=== PATIENT | female | born 1965 | race Caucasian/White ===

== ENCOUNTER 2023-07-23 17:32 | Emergency (ER) | payer MEDICARE, MEDICAID, SELFPAY ==
[2023-07-23 17:42] VITALS: BP 148/105; PULSE 116; RESP 22; TEMP 36.6; O2SAT 97
--- NOTE | 2023-07-23 17:52 | W.ED.EXTPRO ---
HPI - Extremity Problem General: Chief complaint: Extremity Injury, Lower Stated complaint: hips, bilateral leg pain Time Seen by Provider: 07/23/23 17:41 History of Present Illness: 57-year-old female presents emergency department with complaints of bilateral hip and upper leg pain. She states this has been worse over the past 3 weeks. She states she has a longstanding history of sciatica and has not seen her primary care provider in over 3 years. She states she also has a history of renal cell carcinoma as well as malignant melanoma with excision to her lower extremities. She states she also has a history of hypertension but has not been taking any antihypertensive medications because she became upset with her primary care provider years ago and has not followed up to the reevaluated. She states her pain is a 6 out of 10 aching pain and that she is confident that it is her sciatica that is flaring up. She denies urinary retention or incontinence. She states she does have a longstanding history of neuropathy and that is no worse than it has been in the past. She denies recent injury or trauma. Review of Systems General: Reports: 10 or more systems reviewed and unremarkable except in HPI and below : Reports: dysuria, urinary frequency and urinary urgency Musc: Reports: back pain, extremity pain and joint pain Neuro: Denies: frequent falls Physical Exam Const: COMMON NORMALS: no acute distress, patient oriented x3 and alert HENMT: COMMON NORMALS: normocephalic, atraumatic and moist oral mucous membranes HEAD & SCALP: normocephalic and atraumatic Eye: GENERAL EYE: appearance normal, both eyes and all related structures and normal light reflex DIRECT OPHTHALMOSCOPY: Yes normal light reflex Neck/C-Spine: COMMON NORMALS: full ROM, supple and no meningeal signs Resp: COMMON NORMALS: normal respiratory effort, No retractions and clear to auscultation bilaterally AUSCULTATION: clear to auscultation bilaterally Cardio: COMMON NORMALS: regular rhythm, S1 normal heart sound present, S2 normal heart sound present and Peripheral pulses 2+ throughout RATE: tachycardic (120 bpm) RHYTHM: regular rhythm HEART SOUNDS: S1 normal heart sound present and S2 normal heart sound present PERIPHERAL PULSES: Peripheral pulses 2+ throughout GI: COMMON NORMALS: Normal to inspection, nondistended, normoactive bowel sounds present, Soft to palpation and non-tender PALPATION: Yes Soft to palpation Back/Pelvis: SACROILIAC JOINTS: Yes SI joint(s) abnormal SI joint details: tender to palpation and pain elicited by compression of iliac crest maneuver Extremity: COMMON NORMALS: normal to inspection, full ROM, capillary refill normal and no pedal edema Neuro: COMMON NORMALS: patient oriented x3, moves all extremities, no focal motor deficits and no sensory deficits noted SENSORIUM/ORIENTATION: Yes alert MENINGEAL SIGNS: Yes no meningeal signs Psych: COMMON NORMALS: mental status grossly normal, Normal thought process present and cooperative THOUGHT PROCESS: Normal thought process present Skin: COMMON NORMALS: no rashes or lesions noted GENERAL SKIN EXAM: no rashes or lesions noted Course ED course: I did have an extensive discussion with the patient regarding her laboratory evaluation to include an elevated white blood cell count as well as findings consistent in her urinalysis with a urinary tract infection. I also had extensive discussion with the patient regarding her positive findings for amphetamines and again provided her the risk and complications of continued amphetamine and substance abuse. On reevaluation after providing her pain medications and corticosteroids she stated her sciatic nerve pain had significantly improved. We also provide her IV antibiotics while in the emergency department and provided her written prescriptions for both pain control and antibiotics at the time of discharge. I did encourage her to obtain a primary care physician given that she has had history of malignant melanoma as well as renal cell carcinoma with a nephrectomy. Patient verbalized understanding all information is provided and stated she would seek a primary care provider I did provide her recommendations for area primary care providers and she stated she would look into it. Patient was discharged home in stable condition and in no acute distress with a family member who was providing her transportation. Vital Signs: Vital signs: Vital Signs Temperature 97.8 F 07/23/23 17:42 Pulse Rate 81 07/23/23 22:18 Respiratory Rate 22 H 07/23/23 17:42 Blood Pressure 148/105 07/23/23 17:42 Pulse Oximetry 91 07/23/23 22:18 Oxygen Delivery Me thod Room Air 07/23/23 21:42 MDM - Extremity (Nontraumatic) Medical Decision Making Physical exam completed and documented, laboratory evaluation to include a CBC and CMP as well as urinalysis given the history of renal cell carcinoma. I will obtain radiograph examination of her lumbar spine as well as her hips and pelvis. I will provide her pain medication for pain relief and at the patient's request provide her information to obtain a primary care provider at the time of discharge. Medical Records I reviewed the patient's medical records. Lab Data I reviewed the patient's lab results. 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 Lumbar Spine X-Ray 07/23/23 17:58 IMPRESSION: 1. Lumbar spine levoscoliosis with a Del Real angle of 19 degrees between the superior endplate of T11 and inferior endplate of L5. 2. Multilevel moderate to severe disc space narrowing most significant at L2-L3 with productive degenerative endplate changes. 3. Scattered vascular calcifications. Laboratory Results WBC 12.60 10^3/uL (3.29-11.43) H 07/23/23 18:17 RBC 5.38 10^6/uL (3.85-5.65) 07/23/23 18:17 Hgb 15.80 g/dL (11.27-16.99) 07/23/23 18:17 Hct 47.2 % (36-47) H 07/23/23 18:17 MCV 87.7 fl (85-98) 07/23/23 18:17 MCH 29.4 pg (27-33) 07/23/23 18:17 MCHC 33.5 g/dL (30-55) 07/23/23 18:17 RDW 12.5 % (12.1-15.1) 07/23/23 18:17 Plt Count 231 10^3/cmm (157-399) 07/23/23 18:17 MPV 9.7 fL (7.4-10.4) 07/23/23 18:17 Neut % (Auto) 75.1 % 07/23/23 18:17 Lymph % (Auto) 15.7 % 07/23/23 18:17 Karnes % (Auto) 7.0 % 07/23/23 18:17 Eos % (Auto) 1.3 % 07/23/23 18:17 Baso % (Auto) 0.6 % 07/23/23 18:17 Neut # (Auto) 9.46 10^3/uL (1.8-7.7) H 07/23/23 18:17 Lymph # (Auto) 2.0 10^3/uL (0.8-4.8) 07/23/23 18:17 Karnes # (Auto) 0.9 10^3/uL (0.2-0.9) 07/23/23 18:17 Eos # (Auto) 0.2 10^3/uL (0.0-0.8) 07/23/23 18:17 Baso # (Auto) 0.1 10^3/uL (0.0-0.1) 07/23/23 18:17 Nucleated RBC % (auto) 0 % 07/23/23 18:17 Nucleated RBCs # 0.0 /100WBC 07/23/23 18:17 Sodium 137 mmol/L (136-145) 07/23/23 18:17 Potassium 3.5 mmol/L (3.5-5.1) 07/23/23 18:17 Chloride 102 mmol/L (98-107) 07/23/23 18:17 Carbon Dioxide 21 mmol/L (22-29) L 07/23/23 18:17 Anion Gap 17.5 (5-19) 07/23/23 18:17 BUN 11 mg/dL (6-20) 07/23/23 18:17 Creatinine 0.8 mg/dL (0.5-0.9) 07/23/23 18:17 GFR Calculation 74.2 mL/min (90-130) L 07/23/23 18:17 Glucose 110 mg/dL (65-115) 07/23/23 18:17 Calculated Osmolality 284 mOsm/kg (285-295) L 07/23/23 18:17 Calcium 9.8 mg/dL (8.5-10.5) 07/23/23 18:17 Total Bilirubin 0.5 mg/dL (0.15-1.2) 07/23/23 18:17 AST 11 U/L (0-32) 07/23/23 18:17 ALT 8 U/L (0-33) 07/23/23 18:17 Alkaline Phosphatase 110 U/L (35-105) H 07/23/23 18:17 Total Protein 7.1 g/dL (6.6-8.7) 07/23/23 18:17 Albumin 4.2 g/dL (3.5-5.2) 07/23/23 18:17 Globulin 2.9 g/dL (1.3-4.6) 07/23/23 18:17 Urine Color Yellow (Yellow) 07/23/23 19:58 Urine Appearance Cloudy (CLEAR) A 07/23/23 19:58 Urine pH 5 (5-7) 07/23/23 19:58 Ur Specific [place] 1.020 (1.005-1.030) 07/23/23 19:58 Urine Protein Trace (Negative) 07/23/23 19:58 Urine Glucose (UA) Norm (Normal) 07/23/23 19:58 Urine Ketones 1+ (Negative) H 07/23/23 19:58 Urine Blood 2+ (Negative) H 07/23/23 19:58 Urine Nitrate Positive (Negative) H 07/23/23 19:58 Urine Bilirubin Neg (Negative) 07/23/23 19:58 Urine Urobilinogen Neg mg/dL (Negative) 07/23/23 19:58 Ur Leukocyte Esterase 2+ (Negative) H 07/23/23 19:58 Urine RBC 5-10 /hpf (0-2) H 07/23/23 19:58 Urine WBC 15-25 /hpf (0-5) H 07/23/23 19:58 Ur Squamous Epith Cells 5-10 /hpf (0-5) H 07/23/23 19:58 Ur Transition Epith Cell 0-4 /hpf 07/23/23 19:58 Amorphous Sediment Not Reportable 07/23/23 19:58 Urine Bacteria 3+ /hpf (NONE) H 07/23/23 19:58 Urine Mucus 1+ /hpf 07/23/23 19:58 Urine Opiates Screen Negative ng/mL (Negative) 07/23/23 19:58 Ur Barbiturates Screen Negative ng/mL (Negative) 07/23/23 19:58 Ur Phencyclidine Scrn Negative ng/mL (Negative) 07/23/23 19:58 Ur Amphetamines Screen Positive ng/mL (Negative) H 07/23/23 19:58 U Benzodiazepines Scrn Negative ng/mL (Negative) 07/23/23 19:58 Urine Cocaine Screen Negative ng/mL (Negative) 07/23/23 19:58 U Marijuana (THC) Screen Positive ng/mL (Negative) H 07/23/23 19:58 All radiology interpretation(s) finalized by discharge ED provider radiology interpretation(s): Radiology Impressions Hip/Pelvis X-Ray? 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 ? Lumbar Spine X-Ray? 07/23/23 17:58 IMPRESSION: 1. ? Lumbar spine levoscoliosis with a Del Real angle of 19 degrees between the superior endplate of T11 and inferior endplate of L5. 2. ? Multilevel moderate to severe disc space narrowing most significant at L2-L3 with productive degenerative endplate changes. 3. ? Scattered vascular calcifications. ? Discharge Plan Discharge Patient Disposition: Home Clinical Impression: Sciatica without lumbago, UTI (urinary tract infection) Condition: Stable Prescriptions: New tramadol 50 mg tablet 25 mg PO Q6H PRN (Reason: pain) Qty: 14 0RF Macrobid 100 mg capsule 100 mg PO BID 7 Days Qty: 14 0RF Rx Instructions: must administer with a meal/food prednisone 20 mg tablet 20 mg PO DAILY Qty: 7 0RF Discharge Orders: Discharge ED (Routine); Ordered 07/23/23 Ordered By: Titus Gutiérrez Discharge Diet: Advance as tolerated Discharge Activity: Resume usual activity Patient Instructions: Opioid Safety, Pain Management Coding Level of Care Code ED Recyclable Materials Sorter for Kyle Johnson
--- NOTE | 2023-07-23 17:58 | XRR_ITS ---
PROCEDURE INFORMATION: Exam: XR Lumbosacral Spine Exam date and time: 07/23/2023 6:37 PM Age: 57 years old Clinical indication: Low back pain TECHNIQUE: Imaging protocol: Radiologic exam of the lumbosacral spine. Views: 2 or 3 views. COMPARISON: No relevant prior studies available. FINDINGS: Bones/joints: Lumbar spine levoscoliosis with a Del Real angle of 19 degrees between the superior endplate of T11 and inferior endplate of L5. Multilevel moderate to severe disc space narrowing most significant at L2-L3 with productive degenerative endplate changes. Soft tissues: Unremarkable. Vasculature: Scattered vascular calcifications. XR/XR lumbar spine 2-3V* [id number] IMPRESSION: 1. Lumbar spine levoscoliosis with a Del Real angle of 19 degrees between the superior endplate of T11 and inferior endplate of L5. 2. Multilevel moderate to severe disc space narrowing most significant at L2-L3 with productive degenerative endplate changes. 3. Scattered vascular calcifications.
--- NOTE | 2023-07-23 17:58 | XRR_ITS ---
PROCEDURE INFORMATION: Exam: XR Bilateral Hips Exam date and time: 07/23/2023 6:37 PM Age: 57 years old Clinical indication: Hip pain; Bilateral; Additional info: Si pain TECHNIQUE: Imaging protocol: Radiologic exam of the bilateral hips. Views: 2 views of hips with pelvis when performed. COMPARISON: No relevant prior studies available. 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 Soft tissues: Unremarkable. 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
[2023-07-23 18:27] LABS: Basophils # 0.1 10^3/uL (0.0-0.1); Basophils % 0.6 %; Eosinophils # 0.2 10^3/uL (0.0-0.8); Eosinophils % 1.3 %; Hematocrit 47.2 % (36-47); Lymphocytes % 15.7 %; Mean Corpuscular HGB Conc 33.5 g/dL (30-55); Mean Corpuscular Hemoglobin 29.4 pg (27-33); Mean Corpuscular Volume 87.7 fl (85-98); Mean Platelet Volume 9.7 fL (7.4-10.4); Monocytes # 0.9 10^3/uL (0.2-0.9); Neutrophils # 9.46 10^3/uL (1.8-7.7); Neutrophils % 75.1 %; Nucleated Red Blood Cells % 0 %; Platelet Count 231 10^3/cmm (157-399); Red Blood Count 5.38 10^6/uL (3.85-5.65); Red Cell Distribution Width 12.5 % (12.1-15.1)
--- NOTE | 2023-07-23 18:27 | ECG_ITS ---
[facility] Test Date: 2023-07-23 Pat Name: Caroline Whitney Department: Room: Gender: Female Marketing Communications Coordinator: : 1965 Requested By: Titus Gutiérrez Order Number: [id number] Renate MD: Iram Johnson M.D. Measurements Intervals [place] Rate: 111 P: 51 SD: 136 QRS: -33 QRSD: 91 T: 49 QT: 306 QTc: 417 Interpretive Statements SINUS TACHYCARDIA LEFT AXIS DEVIATION [QRS AXIS < -30] LOW QRS VOLTAGE IN PRECORDIAL LEADS [QRS DEFLECTION < 1.0 mV IN CHEST LEADS] POSSIBLE ANTERIOR MYOCARDIAL INFARCTION , PROBABLY OLD [30 ms Q WAVE IN V3/V4, OR R < 0.2 mV IN V4] No previous ECG available for comparison Electronically Signed On 07-23-2023 19:37:52 CDT by Iarm Johnson M.D. [email or web address]
[2023-07-23 18:47] LABS: Alanine Aminotransferase 8 U/L (0-33); Albumin Level 4.2 g/dL (3.5-5.2); Alkaline Phosphatase 110 U/L (35-105); Anion Gap 17.5 (5-19); Aspartate Amino Transferase 11 U/L (0-32); Blood Urea Nitrogen 11 mg/dL (6-20); Calcium 9.8 mg/dL (8.5-10.5); Carbon Dioxide 21 mmol/L (22-29); Chloride 102 mmol/L (98-107); Globulin 2.9 g/dL (1.3-4.6); Glomerular Filtration Rate 74.2 mL/min (90-130); Glucose 110 mg/dL (65-115); Osmolality Calculated 284 mOsm/kg (285-295); Potassium 3.5 mmol/L (3.5-5.1); Sodium 137 mmol/L (136-145); Total Bilirubin 0.5 mg/dL (0.15-1.2); Total Protein 7.1 g/dL (6.6-8.7)
[2023-07-23 20:27] LABS: Amphetamines Screen Urine Positive (Negative); Barbiturates Screen Urine Negative (Negative); Benzodiazepines Screen Urine Negative (Negative); Cocaine Screen Urine Negative (Negative); Opiate Screen Urine Negative (Negative); PCP Screen Urine Negative (Negative); THC Screen Urine Positive (Negative)
[2023-07-23 20:33] LABS: Add Urine Microscopic? YES; Bilirubin Urine Neg (Negative); Blood Urine 2+ (Negative); Glucose Urine UA Norm (Normal); Ketones Urine 1+ (Negative); Leukocyte Esterase Urine 2+ (Negative); Nitrate Urine Positive (Negative); Protein Urine Trace (Negative); Urine Appearance Cloudy (CLEAR); Urine Color Yellow (Yellow); Urobilinogen Urine Neg (Negative); pH Urine 5 (5-7)
[2023-07-23 20:34] LABS: Bacteria Urine 3+ /hpf; Mucus Urine 1+ /hpf; Transitional Epi Cells Urine 0-4 /hpf; WBC Urine 15-25 /hpf (0-5)
[2023-07-23 20:35] LABS: Add Urine Culture? Yes
--- NOTE | 2023-07-23 20:56 | PC.NURSE ---
pt care this nurse took over care of the patient at this time.
[2023-07-23] MEDS: ketorolac 30 mg/mL INJ IVP (21:16)
[2023-07-23] MEDS: methylPREDNISolone sod succ 60 MG in water for injection-sterile 0.96 ML 11.52 MG IVP (21:18)
[2023-07-23] MEDS: cefTRIAXone 1,000 MG in sodium chloride 0.9% (plus) 50 ML 100 MG IV (21:23)
[2023-07-23 21:42] VITALS: PULSE 71; O2SAT 96
[2023-07-23 22:18] VITALS: PULSE 81; O2SAT 91
== END 2023-07-23 22:19 | disposition home or self-care (01) ==
PROVIDERS: Emergency Provider Internal Medicine
DX: M46.1 Sacroiliitis, not elsewhere classified (principal); M16.0 Bilateral primary osteoarthritis of hip; M54.40 Lumbago with sciatica, unspecified side; N39.0 Urinary tract infection, site not specified
CPT/HCPCS: 72100; 73522; 80053; 80306; 81001; 85025; 87077; 87086; 87186; 93005; 96374; 96375; 99285; J0696; J1885; J2930

== ENCOUNTER 2025-04-11 11:49 | Emergency (ER) | payer MEDICARE, MEDICAID, SELFPAY ==
[2025-04-11] VITALS (8 sets, daily range): BP systolic 106–118; BP diastolic 60–72; PULSE 78–95; RESP 16–19; TEMP 36.8; O2SAT 92–94; BMI 25.0
--- OUTSIDE RECORDS SUMMARY | 2025-04-11 09:20 | XMS_ITS | Encounter Summary ---
Author Organization [facility] Address [address] [place] [address] Care Team Providers Care Assembler Steam And Gas Turbine Name Role Phone Los Cuevas MD Primary Care Provider [phone] [phone] Reason for Referral * CT Scan (Urgent) - Pending Review Specialty Diagnoses / Procedures Referred By Bree malloy Referred To Contact Radiology Diagnoses Left lower quadrant abdominal pain Abdominal pain, RLQ Procedures CT ABDOMEN PELVIS W CONTRAST Flower Parker FNP [address] [place] [address] Phone: tel: fax: [facility] CT Scan [place] [address] [place] [address] Phone: tel: fax: Referral ID Status Reason Start Date Expiration Date V isits Requested Visits Authorized [id number] Pending Review 04/11/2025 05/12/2026 1 1 * Radiology Services (Routine) - Authorized Specialty Diagnoses / Procedures Referred By Bree malloy Referred To Contact Radiology Diagnoses Screening mammogram, encounter for Procedures MAMMO 3D THOMAS SCREEN BILAT W OR WO CAD CHG SCREENING MAMMOGRAPHY BI 2-VIEW BREAST INC CAD CHG SCREENING DIGITAL BREAST TOMOSYNTHESIS BI Flower Parker FNP [address] [place] [address] Phone: tel: fax: [facility] Mammography [place] [address] [place] [address] Phone: tel: fax: Referral ID Status Reason Start Date Expiration Date V isits Requested Visits Authorized [id number] Authorized 04/11/2025 05/12/2026 1 1 Reason for Visit * Reason Comments ER Follow Up Encounter Details Date Type Department Care Team (Late st Contact Info) Description 04/11/2025 9:20 AM CDT Office Visit [facility] [address] [facility] [place] [address] Flower Parker FNP [address] [facility] [place] [address] Screening mammogram, encounter for (Primary Dx); Left lower quadrant abdominal pain; Abdominal pain, RLQ Social History Tobacco Use Types Packs/Day Years Used Date Smoking Tobacco: Every Day Cigarettes Smokeless Tobacco: Never Tobacco Cessation:Ready to Q uit: No; Counseling Given: Yes Alcohol Use Standard Drinks/Week Comments Yes 0 (1 standard drink = 0.6 oz pur e alcohol) Feeling Safe Answer Date Recorded Are you in a relationship wi th someone who hurts you emotionally and/or physically? 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 Gender Identity Not on file Sexual Orientation Not on file documented as of this encounter Last Filed Vital Signs Vital Sign Reading Time Taken Comments Blood Pressure 124/82 04/11/2025 9:53 AM CDT Pulse 99 04/11/2025 9:53 AM CDT Temperature 37.2 C (98.9 F) 04/11/2025 9:53 AM CDT Respiratory Rate 20 04/11/2025 9:53 AM CDT Oxygen Saturation 92% 04/11/2025 9:53 AM CDT Inhaled Oxygen Concentration - - Weight 72.8 kg (160 lb 9.6 oz) 04/11/2025 9:53 A M CDT Height 170.2 cm (5' 7 ) 04/11/2025 9:53 AM CDT Body Mass Index 25.15 04/11/2025 9:53 AM CDT documented in this encounter Plan of Treatment Scheduled Orders Name Type Priority Associated Diagnoses Orde r Schedule MAMMO 3D THOMAS SCREEN BILAT W OR WO CAD Imaging Routine Screening mammogram, encounter for 1 Occurrences starting 04/11/2025 until 10/12/2026 CT ABDOMEN PELVIS W CONTRAST Imaging Stat Left lower quadrant abdominal pain Abdominal pain, RLQ Expected: 04/11/2025, Expires: 04/11/2026 documented as of this encounter Visit Diagnoses Diagnosis Screening mammogram, encounter for- Primary Left lower quadrant abdominal pain Abdominal pain, RLQ Abdominal pain, right lower quadrant documented in this encounter Care Teams Assembler Steam And Gas Turbine Relationship Specialty Start Date End Date Los Cuevas MD [address] [facility] [address] [place] [id number] PCP - General Family Practice 07/02/16 documented as of this encounter
--- OUTSIDE RECORDS SUMMARY | 2025-04-11 11:54 | XMS_ITS | Encounter Summary ---
Author Organization [facility] Address [address] [place] [address] Care Team Providers Care Stratigraphy Teacher Name Role Phone Los Cuevas MD Primary Care Provider [phone] [phone] Encounter Details Date Type Department Care Team (Latest Contact Info) Description 05/25/2002 Outpatient Historical [facility] Family Medicine- [address] [place] [address] Man Lei, NO ADDRESS ON FILE ADJ REACT-ANXIOUS MOOD (Primary Dx); NONSPECIF SKIN ERUPT NEC Social History Tobacco Use Types Packs/Day Years Used Date Smoking Tobacco: Never Assessed Comments Unknown Sex and Gender Information Value Date Recorded Sex Assigned at Not on file Legal Sex Female 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
--- OUTSIDE RECORDS SUMMARY | 2025-04-11 11:54 | XMS_ITS | Encounter Summary ---
Author Organization [facility] Address [address] [place] [address] Care Team Providers Care Cat Scan Tech Name Role Phone Los Cuevas MD Primary Care Provider [phone] [phone] Encounter Details Date Type Department Care Team (Latest Contact Info) Description 10/09/2001 Outpatient Historical [facility] Family Medicine- [address] [place] [address] Mikayla Stein MD NO ADDRESS ON FILE ALLERGIC RHINITIS NOS (Primary Dx); TENSION HEADACHE Social History Tobacco Use Types Packs/Day Years Used Date Smoking Tobacco: Never Assessed Comments Unknown Sex and Gender Information Value Date Recorded Sex Assigned at Not on file Legal Sex Female 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
--- OUTSIDE RECORDS SUMMARY | 2025-04-11 11:54 | XMS_ITS | Encounter Summary ---
Author Organization [facility] Address [address] [place] [address] Care Team Providers Care Steamer Tender Name Role Phone Los Cuevas MD Primary Care Provider [phone] [phone] Encounter Details Date Type Department Care Team (Latest Contact Info) Description 12/31/2001 Outpatient Historical [facility] Family Medicine [address] [address] Blayne Caba MD ABDOMINAL PAIN EPIGASTRIC (Primary Dx) Social History Tobacco Use Types Packs/Day Years Used Date Smoking Tobacco: Never Assessed Comments Unknown Sex and Gender Information Value Date Recorded Sex Assigned at Not on file Legal 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
--- OUTSIDE RECORDS SUMMARY | 2025-04-11 11:54 | XMS_ITS | Encounter Summary ---
Author Organization [facility] Address [address] [place] [address] Care Team Providers Care Drip Pumper Name Role Phone Los Cuevas MD Primary Care Provider [phone] [phone] Encounter Details Date Type Department Care Team (Latest Contact Info) Description 06/28/2004 Outpatient Historical [facility] General Surgery [address] [address] [address] [place] [address] [place] [address] [facility] [address] [place] [address] UNCERTAIN BEHAV NEOPL SKIN (Primary Dx) Social History Tobacco Use Types Packs/Day Years Used Date Smoking Tobacco: Never Assessed Comments Unknown Sex and Gender Information Value Date Recorded Sex Assigned at Not on file Legal Sex Female 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
--- OUTSIDE RECORDS SUMMARY | 2025-04-11 11:54 | XMS_ITS | Encounter Summary ---
Author Organization [facility] Address [address] [place] [address] Care Team Providers Care Admission Nurse Name Role Phone Los Cuevas MD Primary Care Provider [phone] [phone] Encounter Details Date Type Department Care Team (Latest Contact Info) Description 07/15/2003 Outpatient Historical [facility] Family Medicine- [address] [place] [address] Thompson Soler MD [address] [facility] [address] [place] [phone] JOINT PAIN-SHLDER (Primary Dx) Social History Tobacco Use Types Packs/Day Years Used Date Smoking Tobacco: Never Assessed Comments Unknown Sex and Gender Information Value Date Recorded Sex Assigned at Not on file Legal Sex Female 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
--- OUTSIDE RECORDS SUMMARY | 2025-04-11 11:54 | XMS_ITS | Encounter Summary ---
Author Organization [facility] Address [address] [place] [address] Care Team Providers Care Special Procedure Tech Name Role Phone Los Cuevas MD Primary Care Provider +1 [phone] Encounter Details Date Type Department Care Team (Late st Contact Info) Description 11/06/2007 Outpatient Historical [facility] Family Medicine [address] [address] Hermelindo Garzon NP NO ADDRESS ON FILE Social History Tobacco Use Types Packs/Day Years Used Date Smoking Tobacco: Never Assessed Comments Unknown Sex and Gender Information Value Date Recorded Sex Assigned at Not on file Legal Sex Female 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 Pulse: 0. Not dictated. BP: 100/80. Temperature is 99.2. CHIEF COMPLAINT: Leakage around her J-P drain. SUBJECTIVE: The patient had a repeat excision of the melanoma in the left medial anterior thigh done at [facility] in [place], [place], on October 15, 2007. Now she has had leakage around the J-P drain, and she did call [facility] and they recommended putting on an Manav wrap, which she has done, but that did not stop the leakage. OBJECTIVE: Reviewed the nurse's note and concur. This is serous drainage and I consulted with Dr. Lei who actually removed the drain from the site. It was getting ready to fall out. She had one suture holding it in and that was removed also. Wedid apply Betadine to the site with the removal, and then following the removal, we cleansed the skin, removed the Betadine and applied sterile 4 x 4's and anchored that with an Manav wrap to hold themin place. Patient did report that she had 14 lymph nodes removed and the phone call she got said that the lymph nodes were negative for any cancer. IMPRESSION: Melanoma, status post surgical excision and surgical drain removal. PLAN: Dr. Lei advised the patient that if she had any problems to be sure to call [facility] talk with her oncologist there or the Oncology surgeon and certainly keep us informed of her progress. Otherwise, she will return p.r.n. Madai Garzon RN-[facility] Man Lei D.O. [facility] Electronically Signed by HARITHA Francisco 11/13/2007 16:23 , P, brent Document #: [id number] cc: documented in this encounter Plan of Treatment Not on file documented as of this encounter Visit Diagnoses Not on filedocumented in this encounter Care Teams Special Procedure Tech Relationship Specialty Start Date End Date Los Cuevas MD [address] [phone] PCP - General Family Practice 07/02/16 documented as of this encounter
--- OUTSIDE RECORDS SUMMARY | 2025-04-11 11:54 | XMS_ITS | Encounter Summary ---
Author Organization [facility] Address [address] [place] [address] Care Team Providers Care Openstack Cloud Consulting Architect Name Role Phone Los Cuevas MD Primary Care Provider +1 [phone] Encounter Details Date Type Department Care Team (Late st Contact Info) Description 07/02/2004 Outpatient Historical [facility] FY06 [place] [address] [facility] [address] [place] [address] Social History Tobacco Use Types Packs/Day Years Used Date Smoking Tobacco: Never Assessed Comments Unknown Sex and Gender Information Value Date Recorded Sex Assigned at Not on file 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
--- OUTSIDE RECORDS SUMMARY | 2025-04-11 11:54 | XMS_ITS | Clinical Summary ---
Author Organization [facility] Address [address] [place] [address] Care Team Providers Care Software Sales Representative Name Role Phone Los Cuevas MD Primary Care Provider +1 [phone] Allergies Active Allergy Reactions Criticality Noted Date Comments Allergen Yzt-Oxkbn-Wcbpd Bee Unknown Hepatitis B Virus Vaccine Unknown Magnesium Sulfate (Bulk) Rash Low 12/25/2009 Soap Unknown Medications fluticasone propionate (FLONASE) 50 mcg/spray Moseley, Suspension nasal inhalerIndicatio ns:Seasonal allergic rhinitis, unspecified trigger USE TWO SPRAY(S) IN EACH NOSTRIL ONCE DAILY. 16 Gram 5 9 Active triamcinolone acetonide (KENALOG) 0.1 % CreamIndications :Nummular dermatitis APPLY TO AFFECTED AREA TWICE DAILY. 45 Gram 1 9 Active umeclidinium (INCRUSE ELLIPTA) 62.5 mcg/actuation Disk with Device Take 1 Puff by inhalation daily. 1 Each 1 9 Active cyclobenzaprine (FLEXERIL) 10 mg tabletIndication s:Chronic pain syndrome,Injury of right shoulder, initial encounter,Acute pain of right shoulder,Decreas ed range of motion TAKE 1 TABLET BY MOUTH THREE TIMES DAILY NEEDED FOR SPASM 90 Tablet 2 0 Active ALLERGY RELIEF, CETIRIZINE, 10 mg tabletIndication s:Seasonal allergic rhinitis, unspecified trigger Take 1 tablet by mouth once daily 90 Tablet 2 0 Active naproxen (NAPROSYN) 500 mg tabletIndication s:Chronic pain syndrome,Injury of right shoulder, initial encounter,Acute pain of right shoulder,Decreas ed range of motion Take 1 tablet by mouth twice daily 60 Tablet 1 0 Active DULoxetine (CYMBALTA) 30 mg Capsule, Delayed Release(E.C.)Ind ications:Chronic pain syndrome,Recurre nt major depressive disorder, in partial remission,HELLEN (generalized anxiety disorder) Take 1 capsule by mouth once daily 30 Capsule 0 Active pantoprazole (PROTONIX) 40 mg Tablet, Delayed Release (E.C.) Take 1 tablet by mouth once daily 15 Tablet 0 Active albuterol HFA 90 mcg inhalerIndicatio ns:Chronic obstructive pulmonary disease, unspecified COPD type (CMS/HCC) INHALE TWO PUFFS BY MOUTH EVERY 6 HOURS NEEDED FOR SHORTNESS OF BREATH 6.7 Gram 2 0 Active gabapentin (NEURONTIN) 400 mg capsuleIndicatio ns:Chronic pain syndrome TAKE 1 CAPSULE BY MOUTH THREE TIMES DAILY 90 Capsule 0 Active busPIRone (BUSPAR) 10 mg tabletIndication s:Recurrent major depressive disorder, in partial remission,HELLEN (generalized anxiety disorder) TAKE 1 TABLET BY MOUTH THREE TIMES DAILY 90 Tablet 0 Active lisinopriL (PRINIVIL) 40 mg tabletIndication s:HTN (hypertension), benign Take 1 tablet by mouth once daily 90 Tablet 0 Active acetaminophen (TYLENOL ARTHRITIS) 650 mg Extended Release tablet Take 1,300 mg by mouth every 6 hours as needed for Pain. Active Active Problems Problem Noted Date Diagnosed Date HTN (hypertension), benign 04/20/2019 Seasonal allergic rhinitis 04/20/2019 Nummular dermatitis 04/20/2019 Chronic pain syndrome 12/23/2017 HELLEN (generalized anxiety disorder) 05/01/2017 History of renal cell carcinoma 12/20/2016 S/p nephrectomy 12/20/2016 Chronic obstructive pulmonary disease, unspecifi ed 10/08/2016 History of malignant melanoma 06/03/2016 Recurrent major depressive disorder, in partial remission 06/03/2016 Assessment & Plan (06/03/2016 6:52 PM CDT): Status: Stable. Plan: Her suicide risk assessment was completed. Not currently requiring medication Peripheral neuropathy 02/20/2015 Back pain 02/20/2015 GERD (gastroesophageal reflux disease) 2 Primary osteoarthritis of both knees 01/07/2012 Tobacco abuse 03/31/2009 Overview (09/15/2012): 1+ ppd (09/16) Resolved Problems Problem Noted Date Diagnosed Date Resolved Date Severe obesity (BMI 35.0-39. 9) with comorbidity 12/20/2016 11/17/2017 Thyroid goiter 10/08/2016 04/20/2019 Major depressive disorder, r ecurrent episode, mild 02/20/2015 06/03/2016 Narcotic dependence 09/16/2012 04/20/20 19 Overview (09/16/2012): Due to osteoarthritis Assessment & Plan (06/03/2016 6:50 PM CDT): Stable. Continue trial to decrease dependence. Renal cell carcinoma, S/P Le ft nephrectomy (02/12) 01/07/2012 12/20/2016 Breast CA Screening 03/31/2009 12/21/19 17 Overview (09/15/2012): Mammo: 06/16 (at [facility]) Necrotizing fasciitis 03/31/20092012 Overview (03/31/2009): 08/13, 11/14, Treated at [facility] Melanoma of Skin, L leg (2008) 06/21/2013 Overview (04/03/2009): Treated at [facility] [place], [place] S/P Surgical excision, radiation therapy Followed by Dr. Osborne Immunizations Immunization Administration Dates Next Due (PNEUMOVAX 23)(50 YRS UP) PN EUMOCOCCAL POLYSACCHARIDE (PPV23) 0.5 ML, IM 06/30/2009 INFLUENZA VACCINE QUADRIVALENT 3 YR UP PF IM 12/2016 Influenza Seasonal Unspecified Formulation IM Influenza Vaccine Split 3+ Yrs IM 06/30/2009 Influenza Vaccine Split 3+ Yrs PF IM 07/08/2013, 09/15/2012 Tetanus Vaccine IM 10/06/1998 Family History Medical History Relation Name Comments Breast Cancer Neg Hx Colon Cancer Neg Hx Social History Tobacco Use Types Packs/Day Years Used Date Smoking Tobacco: Every Day Cigarettes Smokeless Tobacco: Never Tobacco Cessation:Ready to Q uit: No; Counseling Given: Yes Alcohol Use Standard Drinks/Week Comments No 0 (1 standard drink = 0.6 oz pur e alcohol) Comments No Sex and Gender Information Value Date Recorded Sex Assigned at Not on file Legal Sex Female 4:20 AM ERP ANALYST Gender Identity Not on file Sexual Orientation Not on file Occupation Industry Job Start Date Job End Date Not on file Not on file Not on file Not on file Last Filed Vital Signs Vital Sign Reading Time Taken Comments Blood Pressure 137/86 07/14/2020 2:28 PM CDT Pulse 100 07/14/2020 11:15 AM CDT Temperature 35.9 C (96.7 F) 07/14/2020 2:28 PM CDT Respiratory Rate 20 07/14/2020 2:28 PM CDT Oxygen Saturation 98% 07/14/2020 2:28 PM CDT Inhaled Oxygen Concentration - - Weight 105.3 kg (232 lb 1.6 oz) 020 12:28 PM CDT Height 170.2 cm (5' 7 ) 07/14/2020 12:2 8 PM CDT Body Mass Index 36.35 07/14/2020 12:28 PM CDT Plan of Treatment Health Maintenance Due Date Last Done Comments FIT/ DNA Q 3 YEARS (AUTO ORDER) 1984 FIT/FOBT Q 1 YEAR (AUTO ORDER) 1984 FLEX SIG/CT COLONOGRAPHY Q 5 YEARS (AUTO ORDER) 1984 DTAP/TDAP/TD VACCINES (1 - Tdap) 1985 HEPATITIS B VACCINES (1 of 3 - 19+ 3-dose series) 1985 Traditional Medicare (ACO) A nnual Wellness Visit 1985 HPV/Cotest (21-29) 1987 HPV/Cotest (30-65) 1996 CERVICAL CANCER SCREENING 08/12/2010 PAP SMEAR 08/12/2010 08/12/2007 COLORECTAL CANCER SCREENING (AUTO ORDER) 2011 COLORECTAL SCREENING 2011 Colorectal Cancer Screening (AUTO ORDER) 2011 Colorectal Cancer Screening 2011 FIT-DNA Q 3 years 2011 FIT/FOBT Q 1 year 2011 Flex Sig/CT Colonography Q 5 years 2011 BREAST CANCER SCREENING 05/17/2014 05/17/20 13, 09/05/2011, 06/18/2011 ZOSTER VACCINE (1 of 2) 2016 INFLUENZA VACCINE (#1) 2025 7, 07/08/2013, 09/15/2012, Additional history exists Procedures Procedure Name Priority Date/Time Associated Diagnosis Comments MAMMO SCREEN BILAT W OR WO CAD Routine 06/18/2011 from Last 3 Months or Most Recently Relevant to Health Maintenance Results * MAMMO DIGITAL SCREEN BILAT (06/18/2011) Anatomical Region Laterality Modality Breast Bilateral Other us Abstract Spg Provider MAMMO ORDERABLES Final Res ult from Last 3 Months or Most Recently Relevant to Health Maintenance Insurance MEDICAID [place] MEDICARE PART A AND B Care Teams Software Sales Representative Relationship Specialty Start Date End Date Los Cuevas MD [address] [address] PCP - General Family Practice 07/02/16
--- OUTSIDE RECORDS SUMMARY | 2025-04-11 11:54 | XMS_ITS | Encounter Summary ---
Author Organization [facility] Address [address] [place] [address] Care Team Providers Care Language And Literature Division Chair Name Role Phone Los Cuevas MD Primary Care Provider +1 -[phone] Encounter Details Date Type Department Care Team (Late st Contact Info) Description 08/31/2008 Outpatient Historical [facility] Ambulance [address] 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
--- OUTSIDE RECORDS SUMMARY | 2025-04-11 11:54 | XMS_ITS | Encounter Summary ---
Author Organization [facility] Address [address] [place] [address] Care Team Providers Care Tab Cutting Machine Operator Name Role Phone Los Cuevas MD Primary Care Provider +1 -[phone] Encounter Details Date Type Department Care Team (Latest Contact Info) Description 06/20/2003 Outpatient Historical [facility] Family Medicine [address] [address] Thompson Soler MD [address] [address] NONINFEC GASTROENTERIT NEC (Primary Dx); ACUTE PHARYNGITIS; [place]UMB[place] Social History Tobacco Use Types Packs/Day Years Used Date Smoking Tobacco: Never Assessed Comments Unknown Sex and Gender Information Value Date Recorded Sex Assigned at Not on file Legal Sex Female 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
--- OUTSIDE RECORDS SUMMARY | 2025-04-11 11:54 | XMS_ITS | Encounter Summary ---
Author Organization [facility] Address [address] [place] [address] Care Team Providers Care Supervisor Cleaning And Annealing Name Role Phone Los Cuevas MD Primary Care Provider +1 -[phone] Encounter Details Date Type Department Care Team (Latest Contact Info) Description 07/02/2004 Outpatient Historical [facility] General Surgery [address] [address] [address] [place] [address] [place] [address] [facility] [address] [place] [address] UNCERTAIN BEHAV NEOPL SKIN (Primary Dx) Social History Tobacco Use Types Packs/Day Years Used Date Smoking Tobacco: Never Assessed Comments Unknown Sex and Gender Information Value Date Recorded Sex Assigned at Not on file Legal Sex Female 4:20 AM TOWN MANAGER Gender Identity Not on file Sexual Orientation Not on file documented as of this encounter Plan of Treatment Not on file documented as of this encounter Visit Diagnoses Diagnosis Neoplasm of uncertain behavior of skin- Primary documented in this encounter Care Teams Supervisor Cleaning And Annealing Relationship Specialty Start Date End Date Los Cuevas MD [address] [address] PCP - General Family Practice 07/02/16 documented as of this encounter
--- OUTSIDE RECORDS SUMMARY | 2025-04-11 11:54 | XMS_ITS | Encounter Summary ---
Author Organization [facility] Address [address] [place] [address] Care Team Providers Care Electronics Processing Supervisor Name Role Phone Los Cuevas MD Primary Care Provider +1 -[phone] Encounter Details Date Type Department Care Team (Late st Contact Info) Description 04/03/2025 Results Follow-Up [facility] Emergency Medicine [address] [place] [address] Raad Kendall RN URINE CULTURE Social History Tobacco Use Types Packs/Day Years Used Date Smoking Tobacco: Every Day Cigarettes Smokeless Tobacco: Never Alcohol Use Standard Drinks/Week Comments Yes 0 (1 standard drink = 0.6 oz pur e alcohol) Feeling Safe Answer Date Recorded Are you in a relationship wi th someone who hurts you emotionally and/or physically? 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 Female 1:15 AM NEWS DIRECTOR Gender Identity Not on file Sexual Orientation Not on file documented as of this encounter Miscellaneous Notes * Result Encounter Note - Raad Kendall RN - 04/03/2025 9:54 AM CDT Currently on [employer], will wait for final results. Contact patient regarding result. documented in this encounter Plan of Treatment Not on file documented as of this encounter Visit Diagnoses Not on filedocumented in this encounter Additional Health Concerns Assessment Noted Time PHQ-9 Depression Total Score: 3 12/24/19 18 11:00 AM CDT documented as of this encounter Care Teams Electronics Processing Supervisor Relationship Specialty Start Date End Date Los Cuevas MD [address] [address] PCP - General Family Practice 07/02/16 documented as of this encounter
--- OUTSIDE RECORDS SUMMARY | 2025-04-11 11:54 | XMS_ITS | Encounter Summary ---
Author Organization [facility] Address [address] [place] [address] Care Team Providers Care Bilingual Interpreter Name Role Phone Los Cuevas MD Primary Care Provider +1 -[phone] Encounter Details Date Type Department Care Team (Latest Contact Info) Description 05/04/2003 Outpatient Historical [facility] Family Medicine- [address] [place] [address] Mikayla Stein MD NO ADDRESS ON FILE JOINT PAIN-L/LEG (Primary Dx); LUMBAGO Social History Tobacco Use Types Packs/Day Years Used Date Smoking Tobacco: Never Assessed Comments Unknown Sex and Gender Information Value Date Recorded Sex Assigned at Not on file Legal Sex Female 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
--- OUTSIDE RECORDS SUMMARY | 2025-04-11 11:54 | XMS_ITS | Encounter Summary ---
Author Organization [facility] Address [address] [place] [address] Care Team Providers Care Plan Checker Name Role Phone Los Cuevas MD Primary Care Provider +1 -[phone] Encounter Details Date Type Department Care Team (Latest Contact Info) Description 12/29/2001 Outpatient Historical [facility] Family Medicine- [address] [place] [address] Man Lei, NO ADDRESS ON FILE FOREIGN BODY GI NOS (Primary Dx) Social History Tobacco Use Types Packs/Day Years Used Date Smoking Tobacco: Never Assessed Comments Unknown Sex and Gender Information Value Date Recorded Sex Assigned at Not on file Legal Sex Female 4:20 AM STORAGE MANAGER Gender Identity Not on file Sexual Orientation Not on file documented as of this encounter Plan of Treatment Not on file documented as of this encounter Visit Diagnoses Diagnosis Foreign body in digestive system, unspecified- Primary documented in this encounter Care Teams Plan Checker Relationship Specialty Start Date End Date Los Cuevas MD [address] [facility] [address] [place] [address] PCP - General Family Practice 07/02/16 documented as of this encounter
--- OUTSIDE RECORDS SUMMARY | 2025-04-11 11:54 | XMS_ITS | Encounter Summary ---
Author Organization [facility] Address [address] [place] [address] Care Team Providers Care Senior Oracle Soa Developer Name Role Phone Los Cuevas MD Primary Care Provider +1 -[phone] Encounter Details Date Type Department Care Team (Latest Contact Info) Description 11/27/1999 Outpatient Historical [facility] Family Medicine- [address] [place] [address] Man Lei, NO ADDRESS ON FILE Acute upper respiratory infections of unspecified site (Primary Dx); Depressive disorder, not elsewhere classified; Anxiety state, unspecified Social History Tobacco Use Types Packs/Day Years Used Date Smoking Tobacco: Never Assessed Comments Unknown Sex and Gender Information Value Date Recorded Sex Assigned at Not on file Legal Sex Female 4:20 AM 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
--- OUTSIDE RECORDS SUMMARY | 2025-04-11 11:54 | XMS_ITS | Encounter Summary ---
Author Organization [facility] Address [address] [place] [address] Care Team Providers Care Extended Insurance Clerk Name Role Phone Los Cuevas MD Primary Care Provider +1 -[phone] Encounter Details Date Type Department Care Team (Latest Contact Info) Description 10/02/2001 Outpatient Historical [facility] Family Medicine [address] [phone] Thompson Soler MD [address] [address] ACUTE PHARYNGITIS (Primary Dx); HEADACHE Social History Tobacco Use Types Packs/Day Years Used Date Smoking Tobacco: Never Assessed Comments Unknown Sex and Gender Information Value Date Recorded Sex Assigned at Not on file Legal Sex Female 4:20 AM QUALITY LAB ASSOC Gender Identity Not on file Sexual Orientation Not on file documented as of this encounter Plan of Treatment Not on file documented as of this encounter Visit Diagnoses Diagnosis Acute pharyngitis- Primary Headache(784.0) Headache documented in this encounter Care Teams Extended Insurance Clerk Relationship Specialty Start Date End Date Los Cuevas MD [address] [phone] PCP - General Family Practice 07/02/16 documented as of this encounter
--- OUTSIDE RECORDS SUMMARY | 2025-04-11 11:54 | XMS_ITS | Encounter Summary ---
Author Organization [facility] Address [address] [place] [address] Care Team Providers Care Glass Vial Filler Name Role Phone Los Cuevas MD Primary Care Provider +1 [phone] Encounter Details Date Type Department Care Team (Latest Contact Info) Description 05/18/2002 Outpatient Historical [facility] Family Medicine- [address] [place] [address] Man Lei, NO ADDRESS ON FILE NONSPECIF SKIN ERUPT NEC (Primary Dx) Social History Tobacco Use Types Packs/Day Years Used Date Smoking Tobacco: Never Assessed Comments Unknown Sex and Gender Information Value Date Recorded Sex Assigned at Not on file Legal Sex Female 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
--- OUTSIDE RECORDS SUMMARY | 2025-04-11 11:54 | XMS_ITS | Encounter Summary ---
Author Organization [facility] Address [address] [place] [address] Care Team Providers Care Skiing Instructor Name Role Phone Los Cuevas MD Primary Care Provider +1 -[phone] Encounter Details Date Type Department Care Team (Latest Contact Info) Description 11/18/2003 Outpatient Historical [facility] Family Medicine- [address] [place] [address] Mikayla Stein MD NO ADDRESS ON FILE URIN TRACT INFECTION NOS (Primary Dx); ACUTE SINUSITIS NOS Social History Tobacco Use Types Packs/Day Years Used Date Smoking Tobacco: Never Assessed Comments Unknown Sex and Gender Information Value Date Recorded Sex Assigned at Not on file Legal Sex Female 4:20 AM PANEL INSTALLER Gender Identity Not on file Sexual Orientation Not on file documented as of this encounter Plan of Treatment Not on file documented as of this encounter Visit Diagnoses Diagnosis Urinary tract infection, site not specified- Primary Acute sinusitis, unspecified documented in this encounter Care Teams Skiing Instructor Relationship Specialty Start Date End Date Los Cuevas MD [address] [facility] [address] [place] [address] PCP - General Family Practice 07/02/16 documented as of this encounter
--- OUTSIDE RECORDS SUMMARY | 2025-04-11 11:54 | XMS_ITS | Encounter Summary ---
Author Organization [facility] Address [address] [place] [address] Care Team Providers Care Sales Representative Publications Name Role Phone Los Cuevas MD Primary Care Provider +1 [phone] Encounter Details Date Type Department Care Team (Latest Contact Info) Description 08/06/1999 Outpatient Historical [facility] Medicine- [address] [phone] Man Lei DO NO ADDRESS ON FILE Anxiety state, unspecified (Primary Dx); Pain in joint, ankle and foot; Urinary tract infection, site not specified Social History Tobacco Use Types Packs/Day Years Used Date Smoking Tobacco: Never Assessed Comments Unknown Sex and Gender Information Value Date Recorded Sex Assigned at Not on file Legal Sex Female 4:20 AM IMPORT/EXPORT ADMINISTRATOR Gender Identity Not on file Sexual Orientation Not on file documented as of this encounter Plan of Treatment Not on file documented as of this encounter Visit Diagnoses Diagnosis Anxiety state, unspecified- Primary Pain in joint, ankle and foot Urinary tract infection, site not specified documented in this encounter Care Teams Sales Representative Publications Relationship Specialty Start Date End Date Los Cuevas MD [address] [address] PCP - General Family Practice 07/02/16 documented as of this encounter
--- OUTSIDE RECORDS SUMMARY | 2025-04-11 11:54 | XMS_ITS | Encounter Summary ---
Author Organization [facility] Address [address] [place] [address] Care Team Providers Care Bed Setter Name Role Phone Los Cuevas MD Primary Care Provider +1 [phone] Encounter Details Date Type Department Care Team (Latest Contact Info) Description 12/18/1999 Outpatient Historical [facility] Family Medicine [address] [address] Man Lei DO NO ADDRESS ON FILE Depressive disorder, not elsewhere classified (Primary Dx); Unspecified acute reaction to stress Social History Tobacco Use Types Packs/Day Years Used Date Smoking Tobacco: Never Assessed Comments Unknown Sex and Gender Information Value Date Recorded Sex Assigned at Not on file Legal Sex Female 4:20 AM SUPERVISOR DRAPERY HANGING Gender Identity Not on file Sexual Orientation Not on file documented as of this encounter Plan of Treatment Not on file documented as of this encounter Visit Diagnoses Diagnosis Depressive disorder, not elsewhere classified- Primary Unspecified acute reaction to stress documented in this encounter Care Teams Bed Setter Relationship Specialty Start Date End Date Los Cuevas MD [address] [address] PCP - General Family Practice 07/02/16 documented as of this encounter
--- OUTSIDE RECORDS SUMMARY | 2025-04-11 11:54 | XMS_ITS | Encounter Summary ---
Author Organization [facility] Address [address] [place] [address] Care Team Providers Care Home Health Nurse Licensed Practical Name Role Phone Los Cuevas MD Primary Care Provider +1 [phone] Encounter Details Date Type Department Care Team (Latest Contact Info) Description 06/17/2000 Outpatient Historical [facility] Family Medicine- [address] [place] [address] Man Lei, NO ADDRESS ON FILE Migraine, unspecified, without mention of intractable migraine without mention of status migrainosus (Primary Dx) Social History Tobacco Use Types Packs/Day Years Used Date Smoking Tobacco: Never Assessed Comments Unknown Sex and Gender Information Value Date Recorded Sex Assigned at Not on file Legal Sex Female 4:20 AM RADIO DISPATCHER Gender Identity Not on file Sexual Orientation Not on file documented as of this encounter Plan of Treatment Not on file documented as of this encounter Visit Diagnoses Diagnosis Migraine, unspecified, without mention of intractable migraine without mention of status migrainosus- Primary documented in this encounter Care Teams Home Health Nurse Licensed Practical Relationship Specialty Start Date End Date Los Cuevas MD [address] [facility] [place] [address] PCP - General Family Practice 07/02/16 documented as of this encounter
--- OUTSIDE RECORDS SUMMARY | 2025-04-11 11:54 | XMS_ITS | Encounter Summary ---
Author Organization [facility] Address [address] [place] [address] Care Team Providers Care Wildland Fire Operations Specialist Name Role Phone Los Cuevas MD Primary Care Provider +1 [phone] Encounter Details Date Type Department Care Team (Latest Contact Info) Description 11/14/2003 Outpatient Historical [facility] Family Medicine- [address] [place] [address] Mikayla Stein MD NO ADDRESS ON FILE ACUTE SINUSITIS NOS (Primary Dx) Social History Tobacco Use Types Packs/Day Years Used Date Smoking Tobacco: Never Assessed Comments Unknown Sex and Gender Information Value Date Recorded Sex Assigned at Not on file Legal Sex Female 4:20 AM AGILE QA TESTER Gender Identity Not on file Sexual Orientation Not on file documented as of this encounter Plan of Treatment Not on file documented as of this encounter Visit Diagnoses Diagnosis Acute sinusitis, unspecified- Primary documented in this encounter Care Teams Wildland Fire Operations Specialist Relationship Specialty Start Date End Date Los Cuevas MD [address] [facility] 60 [place] [address] PCP - General Family Practice 07/02/16 documented as of this encounter
--- OUTSIDE RECORDS SUMMARY | 2025-04-11 11:54 | XMS_ITS | Encounter Summary ---
Author Organization [facility] Address [address] [place] [address] Care Team Providers Care Typing Teacher Name Role Phone Los Cuevas MD Primary Care Provider +1 -[phone] Encounter Details Date Type Department Care Team (Latest Contact Info) Description 06/08/2002 Outpatient Historical [facility] Family Medicine- [address] [place] [address] Man Lei, NO ADDRESS ON FILE NONSPECIF SKIN ERUPT NEC (Primary Dx); URINARY FREQUENCY Social History Tobacco Use Types Packs/Day Years Used Date Smoking Tobacco: Never Assessed Comments Unknown Sex and Gender Information Value Date Recorded Sex Assigned at Not on file Legal Sex Female 4:20 AM DIE FINISHER FORGING Gender Identity Not on file Sexual Orientation Not on file documented as of this encounter Plan of Treatment Not on file documented as of this encounter Visit Diagnoses Diagnosis Rash and other nonspecific skin eruption- Primary Urinary frequency documented in this encounter Care Teams Typing Teacher Relationship Specialty Start Date End Date Los Cuevas MD [address] [address] PCP - General Family Practice 07/02/16 documented as of this encounter
--- OUTSIDE RECORDS SUMMARY | 2025-04-11 11:54 | XMS_ITS | Encounter Summary ---
Author Organization [facility] Address [address] [place] [address] Care Team Providers Care Inhalation Therapy Teacher Name Role Phone Los Cuevas MD Primary Care Provider +1 -[phone] Encounter Details Date Type Department Care Team (Late st Contact Info) Description 09/09/2007 Outpatient Historical [facility] Family Medicine- [address] [place] [address] Hermelindo Garzon NP NO ADDRESS ON FILE Social History Tobacco Use Types Packs/Day Years Used Date Smoking Tobacco: Never Assessed Comments Unknown Sex and Gender Information Value Date Recorded Sex Assigned at Not on file Legal Sex Female 4:20 AM WHITE SUGAR PAN TANK OPERATOR Gender Identity Not on file Sexual Orientation Not on file documented as of this encounter Plan of Treatment Not on file documented as of this encounter Visit Diagnoses Not on filedocumented in this encounter Care Teams Inhalation Therapy Teacher Relationship Specialty Start Date End Date Los Cuevas MD [address] [facility] 60 [place] [address] PCP - General Family Practice 07/02/16 documented as of this encounter
--- OUTSIDE RECORDS SUMMARY | 2025-04-11 11:54 | XMS_ITS | Encounter Summary ---
Author Organization [facility] Address [address] [place] [address] Care Team Providers Care Field Case Manager Name Role Phone Los Cuevas MD Primary Care Provider +1 -[phone] Encounter Details Date Type Department Care Team (Latest Contact Info) Description 07/12/2004 Outpatient Historical [facility] General Surgery [address] [address] [address] [place] [address] [place] [address] [facility] [address] [place] [address] SURGERY FOLLOWUP, UNSPEC (Primary Dx) Social History Tobacco Use Types Packs/Day Years Used Date Smoking Tobacco: Never Assessed Comments Unknown Sex and Gender Information Value Date Recorded Sex Assigned at Not on file Legal Sex Female 4:20 AM HANGING FLAGS DECORATOR Gender Identity Not on file Sexual Orientation Not on file documented as of this encounter Plan of Treatment Not on file documented as of this encounter Visit Diagnoses Diagnosis Follow-up examination, following unspecified surgery- Primary documented in this encounter Care Teams Field Case Manager Relationship Specialty Start Date End Date Los Cuevas MD [address] [address] PCP - General Family Practice 07/02/16 documented as of this encounter
--- OUTSIDE RECORDS SUMMARY | 2025-04-11 11:54 | XMS_ITS | Encounter Summary ---
Author Organization [facility] Address [address] [place] [address] Care Team Providers Care Spring Upholsterer Name Role Phone Los Cuevas MD Primary Care Provider +1 -[phone] Encounter Details Date Type Department Care Team (Latest Contact Info) Description 09/11/1999 Outpatient Historical [facility] Family Medicine- [address] [place] [address] Man Lei, NO ADDRESS ON FILE Depressive disorder, not elsewhere classified (Primary Dx); Acute upper respiratory infections of unspecified site; Pain in joint, pelvic region and thigh Social History Tobacco Use Types Packs/Day Years Used Date Smoking Tobacco: Never Assessed Comments Unknown Sex and Gender Information Value Date Recorded Sex Assigned at Not on file Legal Sex Female 4:20 AM MOVIE THEATER MANAGER Gender Identity Not on file Sexual Orientation Not on file documented as of this encounter Plan of Treatment Not on file documented as of this encounter Visit Diagnoses Diagnosis Depressive disorder, not elsewhere classified- Primary Acute upper respiratory infections of unspecified site Pain in joint, pelvic region and thigh documented in this encounter Care Teams Spring Upholsterer Relationship Specialty Start Date End Date Los Cuevas MD [address] [facility] 60 [place] [address] PCP - General Family Practice 07/02/16 documented as of this encounter
--- OUTSIDE RECORDS SUMMARY | 2025-04-11 11:54 | XMS_ITS | Encounter Summary ---
Author Organization [facility] Address [address] [place] [address] Care Team Providers Care Aviation Consultant Name Role Phone Los Cuevas MD Primary Care Provider +1 -[phone] Encounter Details Date Type Department Care Team (Latest Contact Info) Description 07/23/2007 Outpatient Historical [facility] Family Medicine [address] [address] Hermelindo Garzon NP NO ADDRESS ON FILE Metrorrhagia (Primary Dx); Sebaceous Cyst Social History Tobacco Use Types Packs/Day Years Used Date Smoking Tobacco: Never Assessed Comments Unknown Sex and Gender Information Value Date Recorded Sex Assigned at Not on file Legal Sex Female 4:20 AM SCREW DOWN Gender Identity Not on file Sexual Orientation Not on file documented as of this encounter Plan of Treatment Not on file documented as of this encounter Visit Diagnoses Diagnosis Metrorrhagia- Primary Sebaceous cyst documented in this encounter Care Teams Aviation Consultant Relationship Specialty Start Date End Date Los Cuevas MD [address] [address] PCP - General Family Practice 07/02/16 documented as of this encounter
--- OUTSIDE RECORDS SUMMARY | 2025-04-11 11:54 | XMS_ITS | Encounter Summary ---
Author Organization [facility] Address [address] [place] [address] Care Team Providers Care Hyperion Essbase Developer Name Role Phone Los Cuevas MD Primary Care Provider +1 -[phone] Reason for Visit * Reason Comments Hospital Follow Up Encounter Details Date Type Department Care Team (Late st Contact Info) Description 04/06/2025 Telephone [facility] Family Medicine [address] [address] Los Cuevas MD [address] [address] Hospital Follow Up Social History Tobacco Use Types Packs/Day Years [...] on file Legal Sex Female 1:15 AM SKIP TENDER Gender Identity Not on file Sexual Orientation Not on file documented as of this encounter Miscellaneous Notes * Telephone Encounter - Shantelle Villaseñor - 04/06/2025 4:38 PM CDT 04/06/2025 4:38 PM Message came in on day 5 and patient had been scheduled with provider for after the Holiday. Shantelle Villaseñor, 04/06/2025 4:39 PM * Telephone Encounter - Ranjana Brown - 04/06/2025 2:19 PM CDT Copied from [facility] #[id number]. Topic: Established Patient Care >> Apr 06, 2025 2:10 PM Ranjana Avalos wrote: Is the patient established with a [facility] provider? Yes, select appropriate option in Discharge Facility SmartList Caller Name: Debbie - daughter on PHI Callback Number: [phone] Call Notes: Patient has not improved with antibiotic prescribed by ED for UTI. First available is 04/11/2025 in [facility]; caller will call back to schedule or go to the walk-in. Patient is Rising Risk Where was the patient discharged from? Emergency Department (ED/ER) Is there availability to schedule the patient within 5 calendar days of discharge? No, in person appointment not available or call came after 5 days of discharge documented in this encounter Plan of Treatment Not on file documented as of this encounter Visit Diagnoses Not on filedocumented in this encounter Additional Health Concerns Assessment Noted Time PHQ-9 Depression Total Score: 3 12/24/19 18 11:00 AM CDT documented as of this encounter Care Teams Hyperion Essbase Developer Relationship Specialty Start Date End Date Los Cuevas MD [address] [facility] [place] [address] PCP - General Family Practice 07/02/16 documented as of this encounter
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
--- OUTSIDE RECORDS SUMMARY | 2025-04-11 11:54 | XMS_ITS | Encounter Summary ---
Author Organization [facility] Address [address] [place] [address] Care Team Providers Care Emergency Medical Technician Name Role Phone Los Cuevas MD Primary Care Provider +1 -[phone] Encounter Details Date Type Department Care Team (Latest Contact Info) Description 06/18/2004 Outpatient Historical [facility] Family Medicine- [address] [place] [address] Mikayla Stein MD NO ADDRESS ON FILE ALLERGIC RHINITIS NOS (Primary Dx); ABDOMINAL PAIN UNSPEC SITE; VAGINITIS NOS; UNCERTAIN BEHAV NEOPL SKIN Social History Tobacco Use Types Packs/Day Years Used Date Smoking Tobacco: Never Assessed Comments Unknown Sex and Gender Information Value Date Recorded Sex Assigned at Not on file Legal Sex Female 4:20 AM TELECOMMUNICATIONS ADMINISTRATOR Gender Identity Not on file Sexual Orientation Not on file documented as of this encounter Plan of Treatment Not on file documented as of this encounter Visit Diagnoses Diagnosis Allergic rhinitis, cause unspecified- Primary Abdominal pain, unspecified site Vaginitis and vulvovaginitis, unspecified Neoplasm of uncertain behavior of skin documented in this encounter Care Teams Emergency Medical Technician Relationship Specialty Start Date End Date Los Cuevas MD [address] [facility] [address] [place] [address] PCP - General Family Practice 07/02/16 documented as of this encounter
--- OUTSIDE RECORDS SUMMARY | 2025-04-11 11:54 | XMS_ITS | Encounter Summary ---
Author Organization [facility] Address [address] [place] [address] Care Team Providers Care Telecommunications Technician Name Role Phone Los Cuevas MD Primary Care Provider +1 -[phone] Encounter Details Date Type Department Care Team (Latest Contact Info) Description 07/06/2004 Outpatient Historical [facility] Family Medicine- [address] [place] [address] Mikayla Stein MD NO ADDRESS ON FILE IRRITABLE COLON (Primary Dx); FEM PELV INFLAM DIS NOS Social History Tobacco Use Types Packs/Day Years Used Date Smoking Tobacco: Never Assessed Comments Unknown Sex and Gender Information Value Date Recorded Sex Assigned at Not on file Legal Sex Female 4:20 AM MANAGER TRANSIT Gender Identity Not on file Sexual Orientation Not on file documented as of this encounter Plan of Treatment Not on file documented as of this encounter Visit Diagnoses Diagnosis Irritable bowel syndrome- Primary Unspecified inflammatory disease of female pelvic organs and tissues documented in this encounter Care Teams Telecommunications Technician Relationship Specialty Start Date End Date Los Cuevas MD [address] [facility] [place] [address] PCP - General Family Practice 07/02/16 documented as of this encounter
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
--- OUTSIDE RECORDS SUMMARY | 2025-04-11 11:55 | XMS_ITS | Encounter Summary ---
Author Organization [facility] Address [address] [place] [address] Care Team Providers Care Associate Professor Of Medicine Name Role Phone Los Cuevas MD Primary Care Provider +1 -[phone] Encounter Details Date Type Department Care Team (Latest Contact Info) Description 03/26/2005 Outpatient Historical [facility] Family Medicine [place] [address] [address] Hermelindo Garzon NP NO ADDRESS ON FILE ACUTE STRESS REACT NOS (Primary Dx); DEPRESSIVE DISORDER NEC Social History Tobacco Use Types Packs/Day Years Used Date Smoking Tobacco: Never Assessed Comments Unknown Sex and Gender Information Value Date Recorded Sex Assigned at Not on file Legal Sex Female 4:20 AM LOG RIDER Gender Identity Not on file Sexual Orientation Not on file documented as of this encounter Plan of Treatment Not on file documented as of this encounter Visit Diagnoses Diagnosis Unspecified acute reaction to stress- Primary Depressive disorder, not elsewhere classified documented in this encounter Care Teams Associate Professor Of Medicine Relationship Specialty Start Date End Date Los Cuevas MD [address] [address] PCP - General Family Practice 07/02/16 documented as of this encounter
--- OUTSIDE RECORDS SUMMARY | 2025-04-11 11:55 | XMS_ITS | Encounter Summary ---
Author Organization [facility] Address [address] [place] [address] Care Team Providers Care Central Supply Clerk Name Role Phone Los Cuevas MD Primary Care Provider +1 -[phone] Encounter Details Date Type Department Care Team (Late st Contact Info) Description 08/12/2007 Outpatient Historical [facility] Family Medicine- [address] [place] [address] Hermelindo Garzon NP NO ADDRESS ON FILE Social History Tobacco Use Types Packs/Day Years Used Date Smoking Tobacco: Never Assessed Comments Unknown Sex and Gender Information Value Date Recorded Sex Assigned at Not on file Legal Sex Female 4:20 AM CONSULTING PROJECT DIRECTOR Gender Identity Not on file Sexual Orientation Not on file documented as of this encounter Plan of Treatment Not on file documented as of this encounter Visit Diagnoses Not on filedocumented in this encounter Care Teams Central Supply Clerk Relationship Specialty Start Date End Date Los Cuevas MD [address] [facility] 60 [place] [address] PCP - General Family Practice 07/02/16 documented as of this encounter
--- OUTSIDE RECORDS SUMMARY | 2025-04-11 11:55 | XMS_ITS | Encounter Summary ---
Author Organization [facility] Address [address] [place] [address] Care Team Providers Care Goat Herder Name Role Phone Los Cuevas MD Primary Care Provider [phone] Encounter Details Date Type Department Care Team (Latest Contact Info) Description 04/30/2006 Outpatient Historical [facility] Family Medicine- [address] [place] [phone] Hermelindo Garzon NP NO ADDRESS ON FILE Pain in Joint, Lower Leg (Primary Dx); Allergic Rhinitis, Cause Unspecified Social History Tobacco Use Types Packs/Day Years Used Date Smoking Tobacco: Never Assessed Comments Unknown Sex and Gender Information Value Date Recorded Sex Assigned at Not on file Legal Sex Female 4:20 AM APPLICATION DEVELOPMENT TEAM LEAD Gender Identity Not on file Sexual Orientation Not on file documented as of this encounter Plan of Treatment Not on file documented as of this encounter Visit Diagnoses Diagnosis Pain in joint, lower leg- Primary Allergic rhinitis, cause unspecified documented in this encounter Care Teams Goat Herder Relationship Specialty Start Date End Date Los Cuevas MD [address] [facility] [address] [place] [address] PCP - General Family Practice 07/02/16 documented as of this encounter
--- OUTSIDE RECORDS SUMMARY | 2025-04-11 11:55 | XMS_ITS | Encounter Summary ---
Author Organization [facility] Address [address] [place] [address] Care Team Providers Care Trench Trimmer Fine Name Role Phone Los Cuevas MD Primary Care Provider [phone] Encounter Details Date Type Department Care Team (Late st Contact Info) Description 08/31/2007 Outpatient Historical [facility] [address] 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
--- OUTSIDE RECORDS SUMMARY | 2025-04-11 11:55 | XMS_ITS | Clinical Summary ---
Author Organization [facility] Address [address] [facility] Attn: Epic Prelude ADT [place] [address] Care Team Providers Care Electronics Engineering Manager Name Role Phone Los Cuevas MD Primary Care Provider [phone] [phone] Allergies Active Allergy Reactions Criticality Noted Date Comments Allergen Fmk-Usiwx-Rfsra Bee Unknown Hepatitis B Virus Vaccine Unknown Magnesium Sulfate (Bulk) Rash Low 12/25/2009 Soap Unknown Skin sensitive to soap Medications acetaminophen (TYLENOL ARTHRITIS) 650 mg Extended Release tablet Take 1,300 mg by mouth every 6 hours as needed for Pain. 07/14/2020 Active ibuprofen (MOTRIN) 400 mg tablet Take 400 mg by mouth every 6 hours as needed for Pain, Mild. Active gabapentin (NEURONTIN) 600 mg tablet Take 600 mg by mouth. Active nitrofurantoin (MACROBID) 100 mg capsule Take 1 Capsule (100 mg) by mouth 2 times daily for 5 days. 10 Capsule 04/01/2025 04/06/20 25 Active Problems Problem Noted Date Diagnosed Date Nummular dermatitis 04/20/2019 Seasonal allergic rhinitis 04/20/2019 HTN (hypertension), benign 04/20/2019 Chronic pain syndrome 12/23/2017 HELLEN (generalized anxiety disorder) 05/01/2017 History of renal cell carcinoma 12/20/2016 S/p nephrectomy 12/20/2016 Chronic obstructive pulmonary disease, unspecifi ed 10/08/2016 History of malignant melanoma 06/03/2016 Recurrent major depressive disorder, in partial remission 06/03/2016 Peripheral neuropathy 02/20/2015 Back pain 02/20/2015 Primary osteoarthritis of both knees 01/07/2012 GERD (gastroesophageal reflux disease) 2 Tobacco abuse 03/31/2009 Overview (02/01/2021): 1+ ppd (09/16) Resolved Problems Problem Noted Date Diagnosed Date Resolved Date Severe obesity (BMI 35.0-39. 9) with comorbidity 12/20/2016 11/17/2017 Thyroid goiter 10/08/2016 04/20/2019 Major depressive disorder, r ecurrent episode, mild 02/20/2015 06/03/2016 Narcotic dependence 09/16/2012 04/20/20 19 Overview (01/31/2021): Due to osteoarthritis Renal cell carcinoma, S/P Le ft nephrectomy (02/12) 01/07/2012 12/20/2016 Necrotizing fasciitis 03/31/20092012 Overview (01/31/2021): 08/13, 11/14, Treated at [facility] Breast CA Screening 03/31/2009 12/21/19 17 Overview (01/31/2021): Mammo: 06/16 (at [facility]) Melanoma of Skin, L leg (2008) 06/21/2013 Overview (01/31/2021): Treated at [place], [place] S/P Surgical excision, radiation therapy Followed by Dr. Osborne Encounters Date Type Department Care Team Description 04/11/2025 9:20 AM CDT Office Visit [address] [address] Flower Parker FNP Screening mammogram, encounter for (Primary Dx); Left lower quadrant abdominal pain; Abdominal pain, RLQ 04/06/2025 Telephone [facility] [address] [facility] [address] [place] [phone] Los Cuevas MD Hospital Follow Up 04/03/2025 Results Follow-Up [facility] Emergency Medicine [address] [place] [address] Raad Kendall, RN URINE CULTURE 04/01/2025 5:15 PM CDT - 04/01/2025 8:04 PM CDT Emergency [facility] Emergency Medicine [address] [facility] [address] [place] [address] Mackenzie Cedillo MD Starnes, Tito Yoon MD Acute cystitis with hematuria (Primary Dx); Rectal bleeding Discharge Disposition: Home or Self Care 04/01/2025 Travel from Last 3 Months Immunizations Immunization Administration Dates Next Due (PNEUMOVAX 23)(50 YRS UP) PN EUMOCOCCAL POLYSACCHARIDE (PPV23) 0.5 ML, IM 06/30/2009 INFLUENZA VACCINE QUADRIVALENT 3 YR UP PF IM 12/2016 Influenza Seasonal Unspecified Formulation IM ,07/09/2007 Influenza Vaccine Split 3+ Yrs IM 06/30/2009 [...] on file Legal Sex Female 1:15 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 Gender Identity Not on file Sexual Orientation Not on file Last Filed Vital Signs [...] Mass Index 25.15 04/11/2025 9:53 AM CDT Plan of Treatment Health Maintenance Due Date Last Done Comments FIT/ DNA Q 3 YEARS (AUTO ORDER) 1984 FIT/FOBT Q 1 YEAR (AUTO ORDER) 1984 FLEX SIG/CT COLONOGRAPHY Q 5 YEARS (AUTO ORDER) 1984 DTAP/TDAP/TD VACCINES (1 - Tdap) 1985 HEPATITIS B VACCINES (1 of 3 - 19+ 3-dose series) 1985 HPV/Cotest (21-29) 1987 CERVICAL CANCER SCREENING 1996 HPV/Cotest (30-65) 1996 PAP SMEAR 1996 COLORECTAL CANCER SCREENING (AUTO ORDER) 2011 COLORECTAL SCREENING 2011 Colorectal Cancer Screening (AUTO ORDER) 2011 Colorectal Cancer Screening 2011 FIT-DNA Q 3 years 2011 FIT/FOBT Q 1 year 2011 Flex Sig/CT Colonography Q 5 years 2011 BREAST CANCER SCREENING 05/17/2014 05/17/20 13, 06/18/2011, 06/18/2011 ZOSTER VACCINE (1 of 2) 2016 [place] Preventative Visit/Annual Wellness Visit 10/06/2024 INFLUENZA VACCINE (#1) 2025 7, 10/08/2016, 07/08/2013, Additional history exists Procedures Procedure Name Priority Date/Time Associated Diagnosis Comments URINALYSIS MICROSCOPY ONLY Stat 04/01/2025 7:05 PM CDT URINALYSIS W/REFLEX MICROSCOPIC Stat 04/01/2025 7:05 PM CDT URINE CULTURE Stat 04/01/2025 7:05 PM CDT OCCULT BLOOD GUAIAC SCREEN, 1-3 CARDS Stat 04/01/2025 5:58 PM CDT C-REACTIVE PROTEIN Stat 04/01/2025 5: 49 PM CDT BRAIN NATRIURETIC PEPTIDE, BNP OR PROBNP Stat 04/01/2025 5:49 PM CDT COMPREHENSIVE METABOLIC PANEL Stat 04/01/2025 5:49 PM CDT PTT Stat 04/01/2025 5:49 PM CDT PROTIME-INR Stat 04/01/2025 5:49 PM CDT SEDIMENTATION RATE Stat 04/01/2025 5: 49 PM CDT CBC WITH DIFFERENTIAL Stat 04/01/2025 5:49 PM CDT MAMMO SCREEN BILAT W OR WO CAD Routine 06/18/2011 from Last 3 Months or Most Recently Relevant to Health Maintenance Results * (ABNORMAL) URINALYSIS MICROSCOPY ONLY (04/01/2025 7:05 PM CDT) WBC UA >100(A) 0 - 2 /hpf 04/01/2025 7:18 PM CDT [facility] RBC UA 11-25(A) 0 - 2 /hpf 04/01/2025 7:18 PM CDT [facility] BACTERIA UA 4+(A) Negative /hpf 04/01/2025 7:18 PM CDT [facility] EPITHELIAL CELLS, URINE 0-5 0 - 5 /hpf 04/01/2025 7:18 PM CDT [facility] Urine URINE SPECIMEN OBTAINED BY CLEAN CATCH PROCEDURE / Unknown Collection / Unknown 04/01/2025 7:05 PM CDT 04/01/2025 7:11 PM CDT Mackenzie Cedillo MD URINE ORDERABLES Final Result [facility] CLIA # [id number] [address] [place] [address] * (ABNORMAL) URINALYSIS WITH REFLEX MICROSCOPIC (04/01/2025 7:05 PM CDT) COLOR UA Yellow Pale to Dark Yellow 04/01/2025 7:18 PM CDT [facility] CLARITY UA Turbid(A) Clear 04/01/2025 7:18 PM CDT [facility] SPECIFIC GRAVITY UA 1.025 1.003 - 1.035 04/01/2025 7:18 PM CDT [facility] PH UA 7.0 5.0 - 8.0 04/01/2025 7:18 PM T [facility] LEUKOCYTE ESTERASE UA 3+(A) Negative 04/01/2025 7:18 PM CDT [facility] NITRITE UA Positive(A) Negative 04/01/2025 7:18 PM CDT [facility] PROTEIN UA 3+(A) Negative 04/01/2025 7:18 PM T [facility] GLUCOSE UA Negative Negative 04/01/2025 7:18 PM T [facility] KETONES UA 1+(A) Negative 04/01/2025 7:18 PM T [facility] UROBILINOGEN UA 1.0 <2.0 mg/dL 7:18 PM T [facility] BILIRUBIN UA 1+(A) Negative 04/01/2025 7:18 PM T [facility] BLOOD UA 3+(A) Negative 04/01/2025 7:18 PM T [facility] Urine URINE SPECIMEN OBTAINED BY CLEAN CATCH PROCEDURE / Unknown Collection / Unknown 04/01/2025 7:05 PM CDT 04/01/2025 7:11 PM CDT Mackenzie Cedillo MD URINE ORDERABLES Final Result [facility] CLIA # [id number] [address] [place] [address] * (ABNORMAL) URINE CULTURE (04/01/2025 7:05 PM CDT) Pathologist [facility] CULTURE ESCHERICHIA COLI(A) MINE MCG/ML 04/04/2025 8:38 AM CDT [facility] Urine URINE SPECIMEN OBTAINED BY CLEAN CATCH PROCEDURE / Unknown Collection / Unknown 04/01/2025 7:05 PM CDT 04/01/2025 7:11 PM CDT Narrative Organism Antibiotic Method Susceptibility Escherichia coli CEFAZOLIN MINE MCG/ML Susceptible Comment:Cefazolin bagley sceptible interpretation applies to uncomplicated urinary tract infections (UTI) only. If patient has a complicated UTI consider either using a 3rd generation cephalosporin (ie- ceftriaxone). If cefazolin susceptibility testing is necessary for treatment of this patient, contact Microbiology for additional testing. Escherichia coli CEFTRIAXONE MINE MCG/ML <=1 mcg/mL: Susceptible Escherichia coli GENTAMICIN MINE MCG/ML <=1 mcg/mL: Susceptible Escherichia coli TOBRAMYCIN MINE MCG/ML <=1 mcg/mL: Susceptible Escherichia coli CIPROFLOXACIN MINE MCG/ML <=0.25 mcg/mL: Susceptible Escherichia coli LEVOFLOXACIN MINE MCG/ML <=0.12 mcg/mL: Susceptible Escherichia coli TRIMETHOPRIM/ SULFAMETHOXAZOLE MINE MCG/ML <=20 mcg/mL: Susceptible Escherichia coli NITROFURANTOIN MINE MCG/ML <=16 mcg/mL: Susceptible Escherichia coli AMPICILLIN MINE MCG/ML 8 mcg/mL: Susceptible Escherichia coli AMPICILLIN/ SULBACTAM MINE MCG/ML 4 mcg/mL: Susceptible Escherichia coli PIPERACILLIN/ TAZOBACTAM MINE MCG/ML <=4 mcg/mL: Susceptible Comment:Aminoglycosides shou ld not be used as monotherapy for infections outside the urinary tract. Consultation with an infectious diseases specialist is recommended. us Mackenzie Cedillo MD MICROBIOLOGY - GENERAL ORDERABL ES Final Result [facility] CLIA # [id number] [address] [place] [address] * OCCULT BLOOD GUAIAC SCREEN, 1-3 CARDS (04/01/2025 5:58 PM CDT) [facility] OCCULT BLOOD, # OF SPECIMENS TESTED 1 04/01/2025 6:07 PM CDT [facility] OCCULT BLOOD #1 Negative Negative 04/01/2025 6:07 PM [facility] Stool STOOL SPECIMEN / Unknown 04/01/2025 5:58 PM CDT 04/01/2025 6:03 PM CDT us Mackenzie Cedillo MD BODY FLUIDS AND STOOLS Final Re sult [facility] CLIA # [id number] [address] [place] [address] * (ABNORMAL) CBC WITH DIFFERENTIAL (04/01/2025 5:49 PM CDT) WBC 10.2(H) 4.0 - 10.0 K/uL 04/01/2025 6:06 PM [facility] RBC 4.15 3.93 - 5.22 M/uL 04/01/2025 6:06 PM [facility] HEMOGLOBIN 12.5 11.2 - 15.7 g/dL 04/01/2025 6:06 PM [facility] HEMATOCRIT 37.3 34.1 - 44.9 % 04/01/2025 6:06 PM [facility] MCV 89.9 79.4 - 94.8 fL 04/01/2025 6:06 PM [facility] MCH 30.1 25.6 - 32.2 pg 04/01/2025 6:06 PM [facility] MCHC 33.5 32.2 - 35.5 g/dL 04/01/2025 6:06 PM [facility] RDW 12.5 11.0 - 14.5 % 04/01/2025 6:06 PM [facility] RDW-STDEV 41.3 36.9 - 56.9 fL 04/01/2025 6:06 PM [facility] PLATELETS 293 163 - 337 K/uL 04/01/2025 6:06 PM [facility] MPV 8.7(L) 10.0 - 14.8 fL 04/01/2025 6:06 PM CDT [facility] NEUTROPHILS 61 34 - 71 % 04/01/2025 6:06 PM CDT [facility] LYMPHOCYTES 22 19 - 52 % 04/01/2025 6:06 PM [facility] MONOCYTES 12 5 - 13 % 04/01/2025 6:06 PM T [facility] EOSINOPHILS 4 1 - 6 % 04/01/2025 6:06 PM T [facility] BASOPHILS 1 0 - 1 % 04/01/2025 6:06 PM T [facility] IMMATURE GRANULOCYTES 1 % 04/01/2025 6:06 PM T [facility] NEUTROPHIL ABSOLUTE 6.24(H) 1.56 - 6.13 K/uL 04/01/2025 6:06 PM [facility] LYMPHOCYTE ABSOLUTE 2.25 1.20 - 3.40 K/uL 04/01/2025 6:06 PM T [facility] MONOCYTE ABSOLUTE 1.21(H) 0.24 - 0.36 K/uL 04/01/2025 6:06 PM T [facility] EOSINOPHIL ABSOLUTE 0.36 0.04 - 0.36 K/uL 04/01/2025 6:06 PM T [facility] BASOPHILS ABSOLUTE 0.06 0.01 - 0.08 K/uL 04/01/2025 6:06 PM [facility] IMMATURE GRANULOCYTES ABSOLUTE 0.06 K/uL 04/01/2025 6:06 PM [facility] Blood Venipuncture / Unknown 04/01/2025 5:49 PM CDT 04/01/2025 6:01 PM CDT us Mackenzie Cedillo MD HEMATOLOGY ORDERABLES Final Res ult [facility] CLIA # [id number] [address] [place] [address] * PTT (04/01/2025 5:49 PM CDT) PTT 27.6 25.1 - 35.4 seconds 04/01/2025 6:21 PM CDT [facility] Blood Venipuncture / Unknown 04/01/2025 5:49 PM CDT 04/01/2025 6:01 PM CDT us Mackenzie Cedillo MD HEMATOLOGY ORDERABLES Final Res ult Performing Organization Address [facility] Co de Phone Number [facility] CLIA # [id number] [address] [place] [address] * SEDIMENTATION RATE (04/01/2025 5:49 PM CDT) ESR (SEDIMENTATION RATE) 25 0 - 30 mm/Hr 04/01/2025 6:21 PM CDT [facility] Blood Venipuncture / Unknown 04/01/2025 5:49 PM CDT 04/01/2025 6:01 PM CDT Narrative [facility] - 04/01/2025 6:21 PM CDT Tube Lot: #[id number] Exp Date: 07/05/2026 SR 0125-1 EXP. 04/09/25 SR 0125-2 EXP. 04/09/25 us Mackenzie Cedillo MD HEMATOLOGY ORDERABLES Final Res ult Performing Organization Address [facility] Co de Phone Number [facility] CLIA # [id number] [address] [place] [address] * PROTIME-INR (04/01/2025 5:49 PM CDT) PROTIME 13.5 12.1 - 14.3 Seconds 04/01/2025 6:21 PM CDT [facility] INR 1.0 0.9 - 1.1 04/01/2025 6:21 PM CDT [facility] Blood Venipuncture / Unknown 04/01/2025 5:49 PM CDT 04/01/2025 6:01 PM CDT us Mackenzie Cedillo MD HEMATOLOGY ORDERABLES Final Res ult [facility] CLIA # [id number] [address] [place] [address] * (ABNORMAL) C-REACTIVE PROTEIN (04/01/2025 5:49 PM CDT) CRP 17.1(H) <5.0 mg/L 04/01/2025 6:29 PM CDT [facility] Blood Venipuncture / Unknown 04/01/2025 5:49 PM CDT 04/01/2025 6:01 PM CDT us Mackenzie Cedillo MD CHEMISTRY ORDERABLES Final Resu lt Performing Organization Address City/[facility]/ZIP Co de Phone Number [facility] CLIA # [id number] [address] [place] [address] * (ABNORMAL) BRAIN NATRIURETIC PEPTIDE, BNP OR PROBNP (04/01/2025 5:49 PM CDT) PROBNP, N TERMINAL 263(H) 0 - 125 pg/mL 04/01/2025 6:29 PM CDT [facility] Comment: INTERPRETIVE COMMENT based on diagnosis: Diagnostic NT pro-BNP cutoffs for Heart Failure in the absence of renal failure is suggested for the following ranges <75 years: <125 pg/mL >=75 years: <450 pg/mL Exclusionary rule out cut-point for Acute Decompensated Heart Failure(ADHF) All ages: <300 pg/mL Diagnostic NT pro-BNP cutoffs for Acute Decompensated Heart Failure(ADHF) in the absence of renal failure is suggested for the following ages <50 years: > 450 pg/mL 50-75 years: > 900 pg/mL >75 years: >1800 pg/mL Blood Venipuncture / Unknown 04/01/2025 5:49 PM CDT 04/01/2025 6:01 PM CDT us Mackenzie Cedillo MD CHEMISTRY ORDERABLES Final Resu lt [facility] CLJENNIFER # [id number] [address] [place] [address]783 * (ABNORMAL) COMPREHENSIVE METABOLIC PANEL (04/01/2025 5:49 PM CDT) SODIUM 137 136 - 145 mmol/L 04/01/2025 6:29 PM [facility] POTASSIUM 3.4(L) 3.5 - 5.1 mmol/L 04/01/2025 6:29 PM [facility] CHLORIDE 105 98 - 107 mmol/L 04/01/2025 6:29 PM [facility] CO2 20(L) 22 - 29 mmol/L 04/01/2025 6:29 PM [facility] CALCIUM 9.4 8.6 - 10.0 mg/dL 04/01/2025 6:29 PM [facility] BUN 16 6 - 20 mg/dL 04/01/2025 6:29 PM [facility] CREATININE 0.72 0.51 - 0.95 mg/dL 04/01/2025 6:29 PM [facility] GLUCOSE 120(H) 74 - 99 mg/dL 04/01/2025 6:29 PM [facility] TOTAL PROTEIN 6.7 6.6 - 8.7 g/dL 04/01/2025 6:29 PM [facility] ALBUMIN 3.9 3.5 - 5.2 g/dL 04/01/2025 6:29 PM [facility] BILIRUBIN TOTAL 0.3 0.0 - 1.2 mg/dL 04/01/2025 6:29 PM [facility] ALKALINE PHOSPHATASE 117(H) 35 - 104 U/L 04/01/2025 6:29 PM [facility] AST 11 0 - 35 U/L 04/01/2025 6:29 PM [facility] ALT <5 0 - 35 U/L 04/01/2025 6:29 PM CDT [facility] GFR >60 >=60 mL/min/1.7 3 sq meter 04/01/2025 6:29 PM CDT [facility] Comment:eGFR calculated with 2020 CKD-EPI equation. Vegetarian diet, extremely high or low muscle mass, and may affect results. Cystatin C with Glomerular Filtration Rate is a suitable alternative for these patients. ANION GAP 12 5 - 20 mmol/L 04/01/2025 6:29 PM CDT [facility] Blood Venipuncture / Unknown 04/01/2025 5:49 PM CDT 04/01/2025 6:01 PM CDT us Mackenzie Cedillo MD CHEMISTRY ORDERABLES Final Resu lt [facility] CLIA # [id number] [address] [place] [address] * MAMMO SCREEN BILAT W OR WO CAD (06/18/2011) Anatomical Region Laterality Modality Breast Bilateral Other us Abstract Spg Provider MAMMO ORDERABLES Final Res ult from Last 3 Months or Most Recently Relevant to Health Maintenance Insurance [place]ICA[place] [employer] CHOICE [facility] Care Teams Electronics Engineering Manager Relationship Specialty Start Date End Date Los Cuevas MD [address] [address] PCP - General Family Practice 07/02/16
--- OUTSIDE RECORDS SUMMARY | 2025-04-11 11:55 | XMS_ITS | Encounter Summary ---
Author Organization [facility] Address [address] [place] [address] Care Team Providers Care Car Hostler Name Role Phone Los Cuevas MD Primary Care Provider [phone] Encounter Details Date Type Department Care Team (Latest Contact Info) Description 08/12/2007 Outpatient Historical [facility] Family Medicine- [address] [place] [phone] Hermelindo Garzon NP NO ADDRESS ON FILE Unspecified Vaginitis and Vulvovaginitis (Primary Dx); Excessive Menstruation; Metrorrhagia; Sebaceous Cyst Social History Tobacco Use Types Packs/Day Years Used Date Smoking Tobacco: Never Assessed Comments Unknown Sex and Gender Information Value Date Recorded Sex Assigned at Not on file 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
--- OUTSIDE RECORDS SUMMARY | 2025-04-11 11:55 | XMS_ITS | Encounter Summary ---
Author Organization [facility] Address [address] [place] [address] Care Team Providers Care Basketball Scout Name Role Phone Los Cuevas MD Primary Care Provider [phone] Encounter Details Date Type Department Care Team (Late st Contact Info) Description 08/31/[address] 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
[2025-04-11 12:50] LABS: Hematocrit 33.4 % (36-47); Hemoglobin 10.80 g/dL (11.27-16.99); Mean Corpuscular HGB Conc 32.3 g/dL (30-55); Mean Corpuscular Hemoglobin 29.9 pg (27-33); Mean Corpuscular Volume 92.5 fl (85-98); Nucleated Red Blood Cells % 0 %; Platelet Count 285 10^3/cmm (157-399); Red Blood Count 3.61 10^6/uL (3.85-5.65); White Blood Count 9.99 10^3/uL (3.29-11.43)
[2025-04-11 13:05] LABS: Alanine Aminotransferase 7 U/L (0-33); Albumin Level 3.4 g/dL (3.5-5.2); Alkaline Phosphatase 115 U/L (35-105); Anion Gap 15.9 (5-19); Aspartate Amino Transferase 10 U/L (0-32); Blood Urea Nitrogen 22 mg/dL (6-20); Calcium 8.6 mg/dL (8.5-10.5); Carbon Dioxide 20 mmol/L (22-29); Chloride 108 mmol/L (98-107); Creatinine Clr Calc Pharmacy 91.2600; Globulin 2.9 g/dL (1.3-4.6); Glucose 102 mg/dL (65-115); Lipase 57 U/L (13-60); Osmolality Calculated 294 mOsm/kg (285-295); Potassium 3.9 mmol/L (3.5-5.1); Sodium 140 mmol/L (136-145); Total Protein 6.3 g/dL (6.6-8.7)
[2025-04-11 13:13] LABS: Add Urine Microscopic? YES
--- NOTE | 2025-04-11 15:05 | ED_ITS ---
HPI - Abdominal Pain 2 General: Chief Complaint: Abdominal Pain Stated Complaint: lower abd pain Time Seen by Provider: 04/11/25 15:04 History of Present Illness: 59-year-old female presents emergency ro om lower abdominal pain for last 3 weeks has had bloody stools blood with urination as well. Recently seen at another hospital No fever sweats or chills. She is also reported some bloody stools. She was treated last week after being seen at the other hospital with Bactrim for a bladder infection. She did not had any fever sweats or chills denies chest pain. Focuses most of her pain to the left lower quadrant Associated Symptoms: Reports hematuria; Denies chills, dysuria and fever(s) Related Data Previous Rx's ?Medication ?Instructions ?Recorded prednisone 20 mg tablet 20 mg PO DAILY #7 tabs 07/23 tramadol 50 mg tablet 25 mg (1/2 x 50 mg) PO Q6H P RN 07/23/23 pain #14 tabs Allergies Allergy/AdvReac Type Severity Reaction Status Date / Time bee venom protein (honey bee) Allergy Unknown Verified 04/11/25 12:00 hepatitis B virus vaccine Allergy Unknown Verified 04/11/25 12:00 magnesium sulfate (From Allergy Unknown Verified 04/11/25 12:00 Epsom Salt) soap Allergy Unknown Verified 04/11/25 12:00 Review of Systems 2 Const: Denies: fever(s) or chills Card: Denies: chest pain Resp: Denies: dyspnea GI: Denies: abdominal pain : Reports: hematuria; Denies: dysuria, urinary frequency or urinary urgency Musc: Denies: neck pain or back pain Skin/Breast: Denies: rash PFSH ED 2 PFSH: Medical History (Updated 04/23/25 @ 16:40 by Bello Gloria DO) History of melanoma Renal cell carcinoma Surgical History (Updated 04/23/25 @ 16:40 by Bello Gloria DO) H/O left nephrectomy Physical Exam 2 Const: GENERAL APPEARANCE: cooperative ORIENTATION/CONSCIOUSNESS: Yes awake, Yes oriented to person, Yes oriented to place and Yes oriented to time HENMT: COMMON NORMALS: normocephalic, atraumatic and hearing grossly normal bilaterally HEAD & SCALP: normocephalic and atraumatic Resp: COMMON NORMALS: normal respiratory effort, No retractions, No use of accessory muscles and clear to auscultation bilaterally AUSCULTATION: clear to auscultation bilaterally Cardio: COMMON NORMALS: regular rate, regular rhythm and No murmurs present (Cardio) RATE: regular rate RHYTHM: regular rhythm GI: COMMON NORMALS: No hepatosplenomegaly present AUSCULTATION: Yes normoactive bowel sounds PALPATION: Yes Tenderness to palpation present (GI) Details: LLQ, No Guarding due to palpation present (GI) and Yes No hepatosplenomegaly present Extremity: COMMON NORMALS: normal to inspection, capillary refill normal, no clubbing, cyanosis or edema, no calf tenderness and no pedal edema Neuro: SENSORIUM/ORIENTATION: Yes oriented to person, Yes oriented to place and Yes oriented to time Skin: COMMON NORMALS: no rashes or lesions noted GENERAL SKIN EXAM: no rashes or lesions noted Course 2 Vital Signs: Vital signs: Vital Signs Temperature 98.2 F 04/11/25 11:54 Pulse Rate 83 04/11/25 23:05 Respiratory Rate 17 04/11/25 23:49 Blood Pressure 115/72 04/11/25 23:05 Pulse Oximetry 94 04/11/25 23:49 Oxygen Delivery Me thod Nasal Cannula 04/11/25 23:05 Oxygen Flow Rate 2 04/11/25 23:05 MDM - Abdominal Pain Medical Decision Making CT shows very concerning findings including a large pelvic mass potential obstruction of the distal right ureter with right hydronephrosis. There is extension of the mass and lymphadenopathy in the pelvis extending into the bone of the sacrum into the left hip and into the spinal canal and the sacrum. Infiltrative changes in the subcutaneous fat in the left pelvis and left hip. We discussed with several different facilities ultimately were able to get her accepted by Dr. Silva in [place]. Will transfer via ambulance. Patient stable at this time. Discussed findings and plan with the patient she is agreeable. Lab Data 04/11/25 12:42 04/11/25 12:42 Labs/Radiology: Radiology Impressions Abdomen/Pelvis CT 04/11/25 15:07 IMPRESSION: 1. RIGHT hydronephrosis with obstruction of the distal RIGHT ureter just above the urinary bladder. No calcified stone can be identified. Obstruction secondary to urothelial neoplasm might be considered. There is generalized wall thickening of the urinary bladder. There are indeterminate nodular densities in the RIGHT kidney. 2. Absent LEFT kidney. 3. Extensive posterior pelvic mass with lymphadenopathy with advanced bony destruction of the sacrum and tumor invasion of the sacral spinal canal. Infiltrative changes seen in the posterior subcutaneous fat of the LEFT pelvis and LEFT hip. Laboratory Results WBC 9.99 10^3/uL (3.29-11.43) 04/11/25 12:42 RBC 3.61 10^6/uL (3.85-5.65) L 04/11/25 12:42 Hgb 10.80 g/dL (11.27-16.99) L 04/11/25 12:42 Hct 33.4 % (36-47) L 04/11/25 12:42 MCV 92.5 fl (85-98) 04/11/25 12:42 MCH 29.9 pg (27-33) 04/11/25 12:42 MCHC 32.3 g/dL (30-55) 04/11/25 12:42 RDW 12.8 % (12.1-15.1) 04/11/25 12:42 Plt Count 285 10^3/cmm (157-399) 04/11/25 12:42 MPV 8.3 fL (7.4-10.4) 04/11/25 12:42 Neut % (Auto) 62.2 % 04/11/25 12:42 Lymph % (Auto) 21.6 % 04/11/25 12:42 [place] % (Auto) 10.0 % 04/11/25 12:42 Eos % (Auto) 3.1 % 04/11/25 12:42 Baso % (Auto) 0.9 % 04/11/25 12:42 Neut # (Auto) 6.21 10^3/uL (1.8-7.7) 04/11/25 12:42 Lymph # (Auto) 2.2 10^3/uL (0.8-4.8) 04/11/25 12:42 [place] # (Auto) 1.0 10^3/uL (0.2-0.9) H 04/11/25 12:42 Eos # (Auto) 0.3 10^3/uL (0.0-0.8) 04/11/25 12:42 Baso # (Auto) 0.1 10^3/uL (0.0-0.1) 04/11/25 12:42 Nucleated RBC % (auto) 0 % 04/11/25 12:42 Nucleated RBCs # 0.0 /100WBC 04/11/25 12:42 Sodium 140 mmol/L (136-145) 04/11/25 12:42 Potassium 3.9 mmol/L (3.5-5.1) 04/11/25 12:42 Chloride 108 mmol/L (98-107) H 04/11/25 12:42 Carbon Dioxide 20 mmol/L (22-29) L 04/11/25 12:42 Anion Gap 15.9 (5-19) 04/11/25 12:42 BUN 22 mg/dL (6-20) H 04/11/25 12:42 Creatinine 0.7 mg/dL (0.5-0.9) 04/11/25 12:42 GFR Calculation 85.9 mL/min (90-130) L 04/11/25 12:42 Glucose 102 mg/dL (65-115) 04/11/25 12:42 Calculated Osmolality 294 mOsm/kg (285-295) 04/11/25 12:42 Calcium 8.6 mg/dL (8.5-10.5) 04/11/25 12:42 Total Bilirubin 0.3 mg/dL (0.15-1.2) 04/11/25 12:42 AST 10 U/L (0-32) 04/11/25 12:42 ALT 7 U/L (0-33) 04/11/25 12:42 Alkaline Phosphatase 115 U/L (35-105) H 04/11/25 12:42 Total Protein 6.3 g/dL (6.6-8.7) L 04/11/25 12:42 Albumin 3.4 g/dL (3.5-5.2) L 04/11/25 12:42 Globulin 2.9 g/dL (1.3-4.6) 04/11/25 12:42 Lipase 57 U/L (13-60) 04/11/25 12:42 Urine Color Red (Yellow) A 04/11/25 12:42 Urine Appearance Cloudy (CLEAR) A 04/11/25 12:42 Urine pH (5-7) 04/11/25 12:42 Ur Specific [place] Not Reportable 04/11/25 12:42 Urine Protein Not Reportable 04/11/25 12:42 Urine Glucose (UA) Not Reportable 04/11/25 12:42 Urine Ketones Not Reportable 04/11/25 12:42 Urine Blood Not Reportable 04/11/25 12:42 Urine Nitrate Not Reportable 04/11/25 12:42 Urine Bilirubin Not Reportable 04/11/25 12:42 Urine Urobilinogen Not Reportable 04/11/25 12:42 Ur Leukocyte Esterase Not Reportable 04/11/25 12:42 Urine RBC Too numerous to cnt /hpf (0-2) H 04/11/25 12:42 Urine WBC 25-40 /hpf (0-5) H 04/11/25 12:42 Ur Squamous Epith Cells 0-4 /hpf (0-5) H 04/11/25 12:42 Amorphous Sediment Not Reportable 04/11/25 12:42 Urine Bacteria 2+ /hpf (NONE) H 04/11/25 12:42 Urine Mucus None /hpf 04/11/25 12:42 All radiology interpretation(s) finalized by discharge Discharge Plan Discharge Patient Disposition: Xfer Short-Term Hosp Clinical Impression: Renal cell carcinoma, History of melanoma, H/O left nephrectomy Condition: Stable Referrals: Flower Parker FNP [Primary Care Provider, Family Practice] Print Language: Nepali Coding Level of Care Code ED Compressor Service Technician for Kyle Johnson
--- NOTE | 2025-04-11 15:07 | CT_ITS ---
WS: [id number] Exam: CT kidney stone [id number] Date/Time of Exam: 04/11/2025 3:23 PM Reason For Exam: flank pain/hematuria DLP: 532.[address] scans at [facility] use at least one of these dose optimization techniques: automated exposure control; mA and/or kV adjustment per patient size (includes targeted exams where dose is matched to clinical indication); or iterative reconstruction. Fibrous changes and bronchiectasis noted in the lower lung zones with several emphysematous blebs. The LEFT kidney is absent. There is hydronephrosis of the RIGHT kidney with dilatation of the complete ureter to near the urinary bladder. A definite obstructing calcified stone in the RIGHT ureter cannot be seen. There are several ill-defined low-attenuation nodules in the RIGHT kidney the largest is seen at about mid pole along the lateral margin. There is generalized wall thickening of the urinary bladder. The liver, stomach, spleen and pancreas are unremarkable as visualized. The abdominal aorta is normal caliber. The IVC is unremarkable in appearance. Small bowel loops are nondilated. No significant large bowel abnormality noted. Constipation. No acute appendix. No lymphadenopathy. No free air. No ascites. Mild fat stranding noted about the lower pole of RIGHT kidney. A large posterior ill-defined pelvic mass with enlarged lymph nodes is noted with extensive bony destruction of the sacrum and coccyx. Tumor invasion of the sacral spinal canal is noted. The mass extends along the posterior margin of the LEFT posterior column. There is diffuse infiltrative change in the subcutaneous fat along the posterior LEFT pelvis and LEFT hip. CT/CT kidney stone [id number] IMPRESSION: 1. RIGHT hydronephrosis with obstruction of the distal RIGHT ureter just above the urinary bladder. No calcified stone can be identified. Obstruction secondar y to urothelial neoplasm might be considered. There is generalized wall thicken ing of the urinary bladder. There are indeterminate nodular densities in the RI GHT kidney. 2. Absent LEFT kidney. 3. Extensive posterior pelvic mass with lymphadenopathy with advanced bony dest ruction of the sacrum and tumor invasion of the sacral spinal canal. Infiltrati ve changes seen in the posterior subcutaneous fat of the LEFT pelvis and LEFT h ip.
[2025-04-11] MEDS: morphine 4 mg/mL SDV 1 mL IVP ×3 (15:45→23:49)
[2025-04-11] MEDS: promethazine 25 mg/mL SDV 1 mL IM (15:45)
--- NOTE | 2025-04-11 17:28 | ECG_ITS ---
[facility] 2025[facility]11 Pat Name: Caroline Whitney Department: Room: Gender: Female Score Caller: : 1965 Requested By: Bello Mehta Order Number: [id number] Renate MD: Brant Crisostomo M.D. Measurements Intervals [place] Rate: 84 P: 28 WV: 129 QRS: -9 QRSD: 93 T: 15 QT: 369 QTc: 437 Interpretive Statements SINUS RHYTHM LOW QRS VOLTAGE IN PRECORDIAL LEADS [QRS DEFLECTION < 1.0 mV IN CHEST LEADS] POSSIBLE ANTERIOR MYOCARDIAL INFARCTION , PROBABLY OLD [30 ms Q WAVE IN V3/V4, OR R < 0.2 mV IN V4] Compared to ECG 07/23/2023 18:27:20 Sinus tachycardia no longer present Left-axis deviation no longer present Myocardial infarct finding still present Electronically Signed On 04-12-2025 08:18:11 CDT by Brant Crisostomo M.D. [id number] [id number]
== END 2025-04-12 00:05 | disposition short-term general hospital (02) ==
PROVIDERS: Emergency Medicine; Emergency Provider Family Medicine; PCP Nurse Practitioner Family
DX: C64.1 Malignant neoplasm of right kidney, except renal pelvis (principal); R31.9 Hematuria, unspecified; Z98.890 Other specified postprocedural states; Z85.820 Personal history of malignant melanoma of skin
CPT/HCPCS: 36415; 74176; 80053; 81001; 83690; 85025; 87077; 87086; 87186; 93005; 96361; 96372; 96374; 96376; 99285; J2270; J2550; J7030

== ENCOUNTER 2025-05-24 07:53 | Oncology outpatient (recurring) (ONCR) | payer MEDICARE, MEDICAID, SELFPAY ==
--- NOTE | 2025-05-11 12:43 | N.ONRAD NP_ITS ---
Radiation Oncology New Patient Visit Patient: Caroline Whitney MR#: [id number] : 1965 Age: 59 Sex: Female Dictated by: Dr. 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 Now with biopsy proven symptomatic osseous metastatic disease at left L5 and diffusely involving the sacrum. Here to address palliative radiation. Radiotherapy to date: Summary > No prior radiation therapy. 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 Restaging imaging in follow up 2009 revealed an asymptomatic left kidney mass. Left nephrectomy 03/2010 2.5 cm clear cell renal carcinoma resected with clear margins. Seen here in ER 04/11/2025 with LBP x 1 month and new hematuria. Treated for UTI. CT scan here Mild right hydro nephrosis, right kidney nodular masses, extensive pelvic adenopathy, right L5 destructive mass, extensive mass replacing sacrum with invasion into sacral neuro foramen. Ct guided bx of sacral mass at [facility] in [place] 04/12/2025 revealed metastatic renal cell carcinoma. Now on immunotherapy with Cabozantinib and Nivolumab. Treatment has been well tolerated thus far. She notes Ongoing LBP now 5 on 10 scale with meds. Numbness from buttock down into legs worse on left. Generalized bilateral LE weakness. Able to ambulate at home with effort. Here she is using a wheelchair. Notes some urinary incontinence. Bowels are continent but vary from constipation to diarrhea. She has lost weight from 240 to 162 pounds with a bit of weight gain over last two weeks. Some nausea controlled with current anti emetic medication. Constant YOON. Following a radiation oncology consult in [place] with Dr. Baltazar, she was referred here for palliative radiation. She is scheduled to have Fu MRI and bone scan in [place] 05/30/2025. She lives independently with a son who stays with here periodically. She is from . 3 of her 4 children live nearby. She has limited ambulation in the home and uses a walker. She requires a wheelchair for longer distances. Current Medications: oxycodone, APAP, Zofran, Pantoprazole, HC-APAP, Cabozantinib Allergies: Bee sting, Hep B vaccine, Hep A vaccine, Medical History: No history of collagen vascular disease. No previous radiation therapy. Surgical History: resected melanoma, left nephrectomy, Family History: mother with hx cervical and lung carcinoma Social History: Seperated from spouse. 3 of 4 adult children live nearby one son in [place]. Regular smoker from age 19 to 59 1 ppd. 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 Here with 2 grandsons who brought her to this appointment. Current Complaints / Review of Systems: see above. . Vital Signs: Performed on 05/11/2025 9:08 AM BMI - 26.992 kg/m2 (high), Height - 65 in, Weight - 162.2 lbs, Temperature - 97.3 f, Pulse - 73 /min, Respiration - 17 /min, O2 Sat - 98 %, Pain - 5, Fatigue - 0 and BP - 117/ 77 mm(hg). Physical Exam: Older appearing than true age. In wheelchair. Edentulous. Alert appropriate and a good historian. No palpable adenopathy. Abd exam benign, No extremity clubbing or edema. Diffuse LE weakness, sensation intact in LE to light touch. Perineal sensation not tested. Performance Status: ECOG PS 2 Pathology: See above Lab: 04/12/2025 Hb 9.9, WBC 7600, Plat 263,000 Cr o.71 Ca 8.6 Imaging: See HPI Impression: Metastatic renal cell carcinoma of left kidney (vs from new suspicious lesions seen in right kidney) to L5, sacrum and pelvic lymph nodes. Agree with palliative radiation to L5 and sacrum. Plan to include pelvic nodes as well. Plan: Simulate today with treatment to follow on Friday05/16/2025. Plan 20 to 25 Gy in 5 fractions. Discussed in detail with patient with review of CT imaging . Signed by: 05/11/2025 12:42:04 PM <<Signature on File>> Time spent with patient: CPT Code: CPT Code:
--- NOTE | 2025-05-24 08:40 | N.ONRD TS_ITS ---
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 ID: [id number], Energy: 15X/6X, Dose/Fx (cGy): 500, #Fx: 5 / 5, Dose Correction (cGy): 0, Total Dose Delivered (cGy): 2,500, Start Date: 05/18/2025, End Date: 05/24/2025, Elapsed Days: 6 Vital Signs: Performed on 05/24/2025 8:21 AM BMI - 25.527 kg/m2 (high), Height - 65 in, Weight - 153.4 lbs, Temperature - 98.4 f, Pulse - 83 /min, Respiration - 17 /min, O2 Sat - 94 % (low), Pain - 5, Fatigue - 0 and BP - 116/ 76 mm(hg). Clinical Summary: The patient tolerated RT well. Patient started with pain of 8 on a 10 point scale and is down now up to 4-5 on a 10 point scale. She does complain of some mild swelling in her left greater than the right lower extremity. She has had surgery in the past as well as location of treatment may answer for that. Plan: End of treatment today. Continue on the above medication until the skin reaction resolves. Follow up on 06/23/2025 at 0900 hrs. or sooner if need be.. Signed by: Gerald Tang>05/24/2025 8:37:59 AM <<Signature on File>>
== END 2025-06-05 23:59 | disposition home or self-care (01) ==
PROVIDERS: PCP Family Medicine; Visit Provider Radiology Radiation Oncology
DX: Z51.0 Encounter for antineoplastic radiation therapy (principal); C64.2 Malignant neoplasm of left kidney, except renal pelvis; C77.5 Secondary and unspecified malignant neoplasm of intrapelvic lymph nodes; C79.51 Secondary malignant neoplasm of bone; M79.89 Other specified soft tissue disorders
CPT/HCPCS: 77290; 77295; 77300; 77334; 77336; 77387; 77412; 99024; 99205

== ENCOUNTER 2025-06-16 04:04 | Emergency (ER) | payer MEDICARE, MEDICAID, SELFPAY ==
[2025-06-16] VITALS (11 sets, daily range): BP systolic 91–123; BP diastolic 52–84; PULSE 86–124; RESP 16; TEMP 36.9–37.1; O2SAT 90–99; BMI 25.2
--- OUTSIDE RECORDS SUMMARY | 2025-06-16 04:08 | XMS_ITS ---
Author Name Interface, [id number] [address] Organization [facility] [place] [address] Allergies and Adverse Reactions Medication/Group Name Reaction Severity Date magnesium Rash 05/31/2025 hepatitis A virus vaccine Rash Bee sting 05/31/2025 Hepatitis B Vaccines Rash 025 Plan Date Type Value 10/07/2025 APPOINTMENT MD Conde Nivolum ab + Cabozantinib Q14D 10/07/2025 APPOINTMENT Chemo C12D1 Nivo lumab + Cabozantinib Q14D 10/04/2025 APPOINTMENT MD Conde Nivolum ab + Cabozantinib Q14D 10/04/2025 APPOINTMENT MD Conde Nivolum ab + Cabozantinib Q14D 10/04/2025 APPOINTMENT Chemo C12D1 Nivo lumab + Cabozantinib Q14D 09/30/2025 APPOINTMENT MD Conde Nivolum ab + Cabozantinib Q14D 09/30/2025 APPOINTMENT MD Conde Nivolum ab + Cabozantinib Q14D 09/30/2025 APPOINTMENT MD Conde Nivolum ab + Cabozantinib Q14D 09/30/2025 APPOINTMENT Chemo C12D1 Nivo lumab + Cabozantinib Q14D 09/30/2025 APPOINTMENT MD Conde Nivolum ab + Cabozantinib Q14D 09/30/2025 APPOINTMENT MD Conde Nivolum ab + Cabozantinib Q14D 09/23/2025 APPOINTMENT C11Jonas Nivolum ab + Cabozantinib Q14D 09/23/2025 APPOINTMENT Chemo C11D1 Nivo lumab + Cabozantinib Q14D 09/20/2025 APPOINTMENT MD C11D1 Nivolum ab + Cabozantinib Q14D 09/20/2025 APPOINTMENT MD C11D1 Nivolum ab + Cabozantinib Q14D 09/20/2025 APPOINTMENT Chemo C11D1 Nivo lumab + Cabozantinib Q14D 09/16/2025 APPOINTMENT MD C11D1 Nivolum ab + Cabozantinib Q14D 09/16/2025 APPOINTMENT MD C11D1 Nivolum ab + Cabozantinib Q14D 09/16/2025 APPOINTMENT MD C11D1 Nivolum ab + Cabozantinib Q14D 09/16/2025 APPOINTMENT Chemo C11D1 Nivo lumab + Cabozantinib Q14D 09/16/2025 APPOINTMENT MD C11D1 Nivolum ab + Cabozantinib Q14D 09/16/2025 APPOINTMENT MD C11D1 Nivolum ab + Cabozantinib Q14D 09/09/2025 APPOINTMENT MD C10D1 Nivolum ab + Cabozantinib Q14D 09/09/2025 APPOINTMENT Chemo C10D1 Nivo lumab + Cabozantinib Q14D 09/06/2025 APPOINTMENT MD C10D1 Nivolum ab + Cabozantinib Q14D 09/06/2025 APPOINTMENT MD C10D1 Nivolum ab + Cabozantinib Q14D 09/06/2025 APPOINTMENT Chemo C10D1 Nivo lumab + Cabozantinib Q14D 09/02/2025 APPOINTMENT MD C10D1 Nivolum ab + Cabozantinib Q14D 09/02/2025 APPOINTMENT MD C10D1 Nivolum ab + Cabozantinib Q14D 09/02/2025 APPOINTMENT MD C10D1 Nivolum ab + Cabozantinib Q14D 09/02/2025 APPOINTMENT Chemo C10D1 Nivo lumab + Cabozantinib Q14D 09/02/2025 APPOINTMENT MD C10D1 Nivolum ab + Cabozantinib Q14D 09/02/2025 APPOINTMENT MD C10D1 Nivolum ab + Cabozantinib Q14D 08/26/2025 APPOINTMENT C9D1 Nivoluma b + Cabozantinib Q14D 08/26/2025 APPOINTMENT Chemo C9D1 Nivol umab + Cabozantinib Q14D 08/23/2025 APPOINTMENT MD C9D1 Nivoluma b + Cabozantinib Q14D 08/23/2025 APPOINTMENT C9D1 Nivoluma b + Cabozantinib Q14D 08/23/2025 APPOINTMENT Chemo C9D1 Nivol umab + Cabozantinib Q14D 08/19/2025 APPOINTMENT MD C9D1 Nivoluma b + Cabozantinib Q14D 08/19/2025 APPOINTMENT MD C9D1 Nivoluma b + Cabozantinib Q14D 08/19/2025 APPOINTMENT MD C9D1 Nivoluma b + Cabozantinib Q14D 08/19/2025 APPOINTMENT Chemo C9D1 Nivol umab + Cabozantinib Q14D 08/19/2025 APPOINTMENT MD C9D1 Nivoluma b + Cabozantinib Q14D 08/19/2025 APPOINTMENT C9D1 Nivoluma b + Cabozantinib Q14D 08/12/2025 APPOINTMENT C8D1 Nivoluma b + Cabozantinib Q14D 08/12/2025 APPOINTMENT Chemo C8D1 Nivol umab + Cabozantinib Q14D 08/09/2025 APPOINTMENT C8D1 Nivoluma b + Cabozantinib Q14D 08/09/2025 APPOINTMENT C8D1 Nivoluma b + Cabozantinib Q14D 08/09/2025 APPOINTMENT Chemo C8D1 Nivol umab + Cabozantinib Q14D 08/05/2025 APPOINTMENT C8D1 Nivoluma b + Cabozantinib Q14D 08/05/2025 APPOINTMENT C8D1 Nivoluma b + Cabozantinib Q14D 08/05/2025 APPOINTMENT C8D1 Nivoluma b + Cabozantinib Q14D 08/05/2025 APPOINTMENT Chemo C8D1 Nivol umab + Cabozantinib Q14D 08/05/2025 APPOINTMENT C8D1 Nivoluma b + Cabozantinib Q14D 08/05/2025 APPOINTMENT C8D1 Nivoluma b + Cabozantinib Q14D 07/29/2025 APPOINTMENT C7D1 Nivoluma b + Cabozantinib Q14D 07/29/2025 APPOINTMENT Chemo C7D1 Nivol umab + Cabozantinib Q14D 07/26/2025 APPOINTMENT C7D1 Nivoluma b + Cabozantinib Q14D 07/26/2025 APPOINTMENT C7D1 Nivoluma b + Cabozantinib Q14D 07/26/2025 APPOINTMENT Chemo C7D1 Nivol umab + Cabozantinib Q14D 07/22/2025 APPOINTMENT C7D1 Nivoluma b + Cabozantinib Q14D 07/22/2025 APPOINTMENT C7D1 Nivoluma b + Cabozantinib Q14D 07/22/2025 APPOINTMENT C7D1 Nivoluma b + Cabozantinib Q14D 07/22/2025 APPOINTMENT Chemo C7D1 Nivol umab + Cabozantinib Q14D 07/22/2025 APPOINTMENT C7D1 Nivoluma b + Cabozantinib Q14D 07/22/2025 APPOINTMENT C7D1 Nivoluma b + Cabozantinib Q14D 07/15/2025 APPOINTMENT C6D1 Nivoluma b + Cabozantinib Q14D 07/15/2025 APPOINTMENT Chemo C6D1 Nivol umab + Cabozantinib Q14D 07/12/2025 APPOINTMENT C6D1 Nivoluma b + Cabozantinib Q14D 07/12/2025 APPOINTMENT C6D1 Nivoluma b + Cabozantinib Q14D 07/12/2025 APPOINTMENT Chemo C6D1 Nivol umab + Cabozantinib Q14D 07/08/2025 APPOINTMENT C6D1 Nivoluma b + Cabozantinib Q14D 07/08/2025 APPOINTMENT C6D1 Nivoluma b + Cabozantinib Q14D 07/08/2025 APPOINTMENT C6D1 Nivoluma b + Cabozantinib Q14D 07/08/2025 APPOINTMENT Chemo C6D1 Nivol umab + Cabozantinib Q14D 07/08/2025 APPOINTMENT C6D1 Nivoluma b + Cabozantinib Q14D 07/08/2025 APPOINTMENT C6D1 Nivoluma b + Cabozantinib Q14D 07/01/2025 APPOINTMENT C5D1 Nivoluma b + Cabozantinib Q14D 07/01/2025 APPOINTMENT Chemo C5D1 Nivol umab + Cabozantinib Q14D 06/28/2025 APPOINTMENT C5D1 Nivoluma b + Cabozantinib Q14D 06/28/2025 APPOINTMENT C5D1 Nivoluma b + Cabozantinib Q14D 06/28/2025 APPOINTMENT Chemo C5D1 Nivol umab + Cabozantinib Q14D 06/24/2025 APPOINTMENT C5D1 Nivoluma b + Cabozantinib Q14D 06/24/2025 APPOINTMENT C5D1 Nivoluma b + Cabozantinib Q14D 06/24/2025 APPOINTMENT C5D1 Nivoluma b + Cabozantinib Q14D 06/24/2025 APPOINTMENT Chemo C5D1 Nivol umab + Cabozantinib Q14D 06/24/2025 APPOINTMENT C5D1 Nivoluma b + Cabozantinib Q14D 06/24/2025 APPOINTMENT C5D1 Nivoluma b + Cabozantinib Q14D 06/17/2025 [address] 1 06/17/2025 APPOINTMENT Lab 06/17/2025 APPOINTMENT Office Visit (15 Min) 06/17/2025 APPOINTMENT Lab 06/17/2025 APPOINTMENT C4D1 Nivoluma b + Cabozantinib Q14D 06/17/2025 APPOINTMENT Chemo C4D1 Nivol umab + Cabozantinib Q14D 06/14/2025 APPOINTMENT C4D1 Nivoluma b + Cabozantinib Q14D 06/14/2025 APPOINTMENT C4Jonas Nivoluma b + Cabozantinib Q14D 06/14/2025 APPOINTMENT Chemo C4D1 Nivol umab + Cabozantinib Q14D 06/10/2025 APPOINTMENT C4D1 Nivoluma b + Cabozantinib Q14D 06/10/2025 APPOINTMENT C4D1 Nivoluma b + Cabozantinib Q14D 06/10/2025 APPOINTMENT C4D1 Nivoluma b + Cabozantinib Q14D 06/10/2025 APPOINTMENT Chemo C4D1 Nivol umab + Cabozantinib Q14D 06/10/2025 APPOINTMENT C4D1 Nivoluma b + Cabozantinib Q14D 06/10/2025 APPOINTMENT C4D1 Nivoluma b + Cabozantinib Q14D 05/31/2025 APPOINTMENT C3D1 Nivoluma b + Cabozantinib Q14D 05/31/2025 APPOINTMENT C3Jonas Nivoluma b + Cabozantinib Q14D 05/31/2025 APPOINTMENT C3Jonas Nivoluma b + Cabozantinib Q14D 05/31/2025 APPOINTMENT Office Visit (15 Min) 05/31/2025 APPOINTMENT Chemo C3D1 Nivol umab + Cabozantinib Q14D 05/31/2025 APPOINTMENT RTC chemo 05/31/2025 APPOINTMENT Lab 05/31/2025 APPOINTMENT Lab 05/31/2025 APPOINTMENT Office Visit (15 Min) 05/31/2025 APPOINTMENT [address] 1 05/27/2025 APPOINTMENT MD Early Nivoluma b + Cabozantinib Q14D 05/27/2025 APPOINTMENT C3Jonas Nivoluma b + Cabozantinib Q14D 05/27/2025 APPOINTMENT C3Jonas Nivoluma b + Cabozantinib Q14D 05/27/2025 APPOINTMENT Chemo C3D1 Nivol umab + Cabozantinib Q14D 05/27/2025 APPOINTMENT MD Early Nivoluma b + Cabozantinib Q14D 05/27/2025 APPOINTMENT MD Early Nivoluma b + Cabozantinib Q14D 05/26/2025 APPOINTMENT Oxycodone Oral 05/18/2025 APPOINTMENT Sennosides-Docus ate Sodium Oral 8.6 mg-50 mg 05/13/2025 APPOINTMENT MD Blue Nivoluma b + Cabozantinib Q14D 05/13/2025 APPOINTMENT MD Blue Nivoluma b + Cabozantinib Q14D 05/13/2025 APPOINTMENT MD Blue Nivolcarmen b + Cabozantinib Q14D 05/13/2025 APPOINTMENT Chemo 05/13/2025 APPOINTMENT MD Blue Nivoluma b + Cabozantinib Q14D 05/13/2025 APPOINTMENT MD Blue Nivoluma b + Cabozantinib Q14D 05/13/2025 APPOINTMENT MD Blue Nivoluma b + Cabozantinib Q14D 05/13/2025 APPOINTMENT MD Blue Nivolcarmen b + Cabozantinib Q14D 05/13/2025 APPOINTMENT Chemo C2D1 Nivol umab + Cabozantinib Q14D 05/13/2025 APPOINTMENT MD Blue Nivolcarmen b + Cabozantinib Q14D 05/13/2025 APPOINTMENT Lab 05/13/2025 APPOINTMENT Lab 05/13/2025 APPOINTMENT Office Visit (15 Min) 05/13/2025 [address]POINTMENT [address] 1 05/10/2025 APPOINTMENT Clobetasol Topic al Cream 0.05 % 04/29/2025 APPOINTMENT MD Dominguez Nivoluma b + Cabozantinib Q14D 04/29/2025 APPOINTMENT MD Dominguez Nivoluma b + Cabozantinib Q14D 04/29/2025 APPOINTMENT MD Dominguez Nivoluma b + Cabozantinib Q14D 04/29/2025 APPOINTMENT MD Dominguez Nivoluma b + Cabozantinib Q14D 04/29/2025 APPOINTMENT Lab 04/29/[address] SIM BLOCK 04/29/2025 APPOINTMENT New Pt - Radiati on Consult 60min 04/29/2025 [address]POINTMENT CL 1 04/29/2025 APPOINTMENT Lab 04/29/2025 APPOINTMENT Office Visit (15 Min) 04/29/2025 APPOINTMENT MD Dominguez Nivoluma b + Cabozantinib Q14D 04/29/2025 APPOINTMENT MD Dominguez Nivoluma b + Cabozantinib Q14D 04/29/2025 APPOINTMENT Chemo C1D1 Nivol umab + Cabozantinib Q14D 04/29/2025 APPOINTMENT MD Dominguez Nivoluma b + Cabozantinib Q14D 04/29/2025 APPOINTMENT MD Dominguez Nivoluma b + Cabozantinib Q14D 04/29/2025 LABORDER CMP 04/29/2025 LABORDER Ferritin 04/29/2025 LABORDER TIBC 04/29/2025 LABORDER Reticulocyte cou nt 04/29/2025 LABORDER Vitamin B12 and Folate panel 04/29/2025 LABORDER TSH 04/29/2025 LABORDER Iron 04/29/2025 LABORDER CBC w/ auto diff 04/29/2025 LABORDER MRI spine 05/13/2025 LABORDER CBC w/ auto diff 05/13/2025 LABORDER CMP 05/31/2025 LABORDER MRI thoracic spi ne w/ & w/o contrast 05/31/2025 LABORDER MRI lumbar spine w/ & w/o contrast 05/31/2025 LABORDER CBC w/ auto diff 05/31/2025 LABORDER CMP 05/31/2025 LABORDER Bone scan, total body 05/31/2025 LABORDER MRI sacrum 06/17/2025 LABORDER CBC w/ auto diff 06/17/2025 LABORDER CMP Reason for Visit Chemo C4D1 Nivolumab + Cabozantinib Q14D Encounters Date Name 04/29/2025 Anemia 04/29/2025 Long-term current us e of drug therapy 04/29/2025 Renal cell carcinoma Diagnostic Results Date Type Test Units Lower Limit Upper Limit Result Flag Comments Status Ordered By Specimen Source Lab Address 04/29 Manua l diffe renti al Neutr ophil % (M) % 40.0 77.0 62 FINAL Philip Luly chino [facility], [address] [facility] [id number] 0 Anisa Meyers 04/29 Manua l diffe renti al Lymph ocyte % % 15.0 41.0 19 FINAL Philip Luly chino [facility], [address] [facility] [id number] 0 Anisa Meyers 04/29 Manua l diffe renti al Monoc yte % % 0.0 9.0 9 FINAL Philip Luly chino [facility], [address] [facility] [id number] 0 Anisa Meyers 04/29 Manua l diffe renti al Eosin ophil % % 0.0 3.0 10 High FINAL Philip Luly chino [facility], [address] [place] [id number] 0 Anisa Meyers 04/29 Manua l diffe renti al Plate let estim ate 380 FINAL Philip Luly chino [facility], [address] [place] [id number] 0 Anisa Meyers 04/29 Manua l diffe renti al RBC morph NORMAL RBC MORPHOL OGY FINAL Philip Luly chino [facility], [address] [facility] [id number] 0 Anisa Meyers 04/29 Gluco se mg/dL 65.0 99.0 79 Fasting reference interval FINAL Philip Luly chino [facility], [id number] 0 04/29 BUN mg/dL 7.0 25.0 13 FINAL Philpi Luly chino [facility], [id number] 0 04/29 Creat inine mg/dL 0.5 1.03 0.81 FINAL Philip Luly [facility], [id number] 0 04/29 EGFR mL/min /1.73m 2 84 FINAL [facility] Luly [facility], [id number] 0 04/29 BUN/C reati nine ratio (calc) 6.0 22.0 SEE NOTE: Not Reported: BUN and Creatinin e are within reference range. FINAL Philip L[facility], [id number] 0 04/29 Sodiu m mmol/L 135.0 146.0 135 FINAL Philip Luly [facility], [id number] 0 04/29 Potas sium mmol/L 3.5 5.3 4.4 FINAL Philip Luly [facility], [id number] 0 04/29 Chlor gian mmol/L 98.0 110.0 103 FINAL [facility] Luly [facility], [id number] 0 04/29 CO2 mmol/L 20.0 32.0 26 FINAL [facility] Luly [facility], [id number] 0 04/29 Calci um mg/dL 8.6 10.4 8.6 FINAL [facility] Luly [facility], [id number] 0 04/29 Total prote in g/dL 6.1 8.1 6.5 FINAL [facility] Luly [facility], [id number] 0 04/29 Album in g/dL 3.6 5.1 3.5 Low FINAL Philip Luly [facility], [id number] 0 04/29 Globu jarad g/dL(c alc) 1.9 3.7 3.0 FINAL Philip Luly [facility], [id number] 0 04/29 A/G ratio (calc) 1.0 2.5 1.2 FINAL [facility] Luly [facility], [id number] 0 04/29 Bilir ubin, total mg/dL 0.2 1.2 0.3 FINAL [facility], [id number] 0 04/29 Alkal ine phosp hatas e U/L 37.0 153.0 134 FINAL [facility] Luly [facility], [id number] 0 04/29 AST/S GOT U/L 10.0 35.0 14 FINAL [facility] Luly [facility], [id number] 0 04/29 ALT/S GPT U/L 6.0 29.0 9 FINAL Philip Luly [facility], [id number] 0 04/29 CBC WBC 10^3/u l 4.5 13.0 8.3 FINAL Philip Luly chino [facility], [address] [facility] [id number] 0 Anisa Makarian 04/29 CBC RBC 10^6/u l 3.8 5.1 3.35 Low FINAL [facility] [place], [address] [place] [id number] 0 Anisa Makarian 04/29 CBC HGB g/dl 11.5 15.3 9.9 Low FINAL [facility] [place], [address] [place] [id number] 0 Anisa Makarian 04/29 CBC HCT % 34.0 46.0 32.2 Low FINAL [facility] [place], [address] [place] [id number] 0 Anisa Makarian 04/29 CBC MCV fl 78.0 98.0 96.1 FINAL [facility] [place], [address] [facility] [id number] 0 Anisa Makarian 04/29 CBC MCH pg 25.0 35.0 29.6 FINAL [facility] [place], [address] [facility] [id number] 0 Anisa Makarian 04/29 CBC MCHC g/dl 31.0 36.0 30.7 Low FINAL Philip Luly chino [facility], [address] [place] [id number] 0 Anisa Makarian 04/29 CBC RDW % 11.0 15.0 13.6 FINAL [facility] [place], [address] [place] [id number] 0 Anisa Makarian 04/29 CBC PLT 10^3/u l 140.0 400.0 378 FINAL [facility] [place], [address] [facility] [id number] 0 Anisa Makarian 04/29 CBC MPV fl 7.5 12.5 7.8 FINAL [facility] [place], [address] [place] [id number] 0 Anisa Makarian 04/29 CBC Glenn % % 40.0 77.0 60.20 FINAL [facility] [place], [address] [place] [id number] 0 Anisa Makarian 04/29 CBC LY % % 15.0 41.0 23.7 FINAL [facility] [place], [address] [facility] [id number] 0 Anisa Makarian 04/29 CBC MO % % 0.0 9.0 9.4 High FINAL [facility] [place], [address] [place] [id number] 0 Anisatonya Chongarian 04/29 CBC EO % % 0.0 3.0 6.3 High FINAL [facility] [place], [address] [place] [id number] 0 Anisa Chongarian 04/29 CBC BA % % 0.0 1.0 0.4 FINAL [facility] [place], [address] [place] [id number] 0 Anisa Castilloarian 04/29 CBC Glenn # (ANC) 10^3/u l 1.8 8.0 5.0 FINAL [facility] [place], [address] [place] [id number] 0 Anisatonya Chongarian 04/29 CBC LY # 10^3/u l 1.2 5.2 2.0 FINAL [facility] [place], [address] [place] [id number] 0 Anisa Chongarian 04/29 CBC MO # 10^3/u l 0.2 0.9 0.8 FINAL [facility] [place], [address] [place] [id number] 0 Anisatonya Chongarian 04/29 CBC EO # 10^3/u l 0.0 0.5 0.5 FINAL [facility] [place], [address] [place] [id number] 0 Anisa Meyers 04/29 CBC BA # 10^3/u l 0.0 0.2 0.0 FINAL [facility] [place], [address] [place] [id number] 0 Anisa Castilloarian 04/29 TSH, mIU/L mIU/L 0.4 4.5 0.62 FINAL [facility] Luly [facility], [id number] 04/29 Vitam in B12 pg/mL 200.0 1100.0 228 Please Note: Although the reference range for vitaminB1 2 is 200-1100 pg/mL, it has been reported that between5 and 10% of patients with values between 200 and 400pg/mL may experienc e neuropsyc hiatric and hematolog icabnorma lities due to occult B12 deficienc y; less than 1%of patients with values above 400 pg/mL will have symptoms. FINAL Philip Luly [facility], [id number] 0 04/29 Folat e, serum ng/mL 5.9 Reference Range Low: <3.4 Borderlin e: 3.4-5.4 Normal: >5.4 FINAL Philip Luly [facility], [id number] 0 04/29 Retic ulocy te count % 2.3 FINAL Philip Luly [facility], [id number] 0 04/29 Retic ulocy te, absol [place], cells /uL cells/ uL 39798. 0 26339. 0 23832 FINAL Philip Luly [facility], [id number] 0 04/29 Iron mcg/dL 45.0 160.0 59 FINAL Philip Luly [facility], [id number] 0 04/29 TIBC mcg/dL (calc) 250.0 450.0 227 Low FINAL Philip Luly [facility], [id number] 0 04/29 Iron, % satur ation %(calc ) 16.0 45.0 26 FINAL Philip Luly [facility], [id number] 0 04/29 Colt tin ng/mL 16.0 232.0 151 FINAL Philip Luly [facility], [id number] 0 05/13 CBC WBC 10^3/u l 4.5 13.0 6.7 FINAL Philip Luly chino [facility], [address] [facility] [id number] 0 Anisa Mira 05/13 CBC RBC 10^6/u l 3.8 5.1 3.85 FINAL Philip Luly chino [facility], [address] [facility] [id number] 0 Anisa Makrianna 05/13 CBC HGB g/dl 11.5 15.3 11.4 Low FINAL Philip Luly chino [facility], [address] [facility] [id number] 0 Anisa Makrianna 05/13 CBC HCT % 34.0 46.0 36.6 FINAL Philip Luly chino [facility], [address] [facility] [id number] 0 Anisa Makarian 05/13 CBC MCV fl 78.0 98.0 95.1 FINAL Philip Luly chino [facility], [address] [facility] [id number] 0 Anisa Makrianna 05/13 CBC MCH pg 25.0 35.0 29.6 FINAL [facility] [place], [address] [place] [id number] 0 Anisa Makarian 05/13 CBC MCHC g/dl 31.0 36.0 31.1 FINAL [facility] [place], [address] [place] [id number] 0 Anisa Makarian 05/13 CBC RDW % 11.0 15.0 14.2 FINAL [facility] [place], [address] [place] [id number] 0 Anisa Makarian 05/13 CBC PLT 10^3/u l 140.0 400.0 213 FINAL [facility] [place], [address] [place] [id number] 0 Anisa Makarian 05/13 CBC MPV fl 7.5 12.5 8.1 FINAL [facility] [place], [address] [place] [id number] 0 Anisa Makarian 05/13 CBC Glenn % % 40.0 77.0 73.70 FINAL [facility] [place], [address] [place] [id number] 0 Anisa Makarian 05/13 CBC LY % % 15.0 41.0 15.7 FINAL [facility] [place], [address] [place] [id number] 0 Anisa Makarian 05/13 CBC MO % % 0.0 9.0 6.3 FINAL [facility] [place], [address] [place] [id number] 0 Anisa Makarian 05/13 CBC EO % % 0.0 3.0 4.0 High FINAL [facility] [place], [address] [place] [id number] 0 Anisa Makarian 05/13 CBC BA % % 0.0 1.0 0.3 FINAL [facility] [place], [address] [place] [id number] 0 Anisa Makarian 05/13 CBC Glenn # (ANC) 10^3/u l 1.8 8.0 4.9 FINAL [facility], [address] [place] [id number] 0 Anisa Makarian 05/13 CBC LY # 10^3/u l 1.2 5.2 1.1 Low FINAL [facility] [place], [address] [facility] [id number] 0 Anisa Makarian 05/13 CBC [place] # 10^3/u l 0.2 0.9 0.4 FINAL [facility] [place], [address] [place] [id number] 0 Anisa Makarian 05/13 CBC EO # 10^3/u l 0.0 0.5 0.3 FINAL [facility] [place], [address] [place] [id number] 0 Anisa Makarian 05/13 CBC BA # 10^3/u l 0.0 0.2 0.0 FINAL [facility] [place], [address] [facility] [id number] 0 Anisa Makarian 05/13 Gluco se mg/dL 65.0 99.0 101 High Fasting reference intervalF or someone without known diabetes, a glucose valuebetw een 100 and 125 mg/dL is consisten t withpredi abetes and should be confirmed with afollow-u p test. FINAL [facility], [id number] 0 05/13 BUN mg/dL 7.0 25.0 15 FINAL [facility], [id number] 0 05/13 Creat inine mg/dL 0.5 1.03 0.75 FINAL [facility], [id number] 0 05/13 EGFR mL/min /1.73m 2 92 FINAL [facility], [id number] 0 05/13 BUN/C reati nine ratio (calc) 6.0 22.0 SEE NOTE: Not Reported: BUN and Creatinin e are within reference range. FINAL [facility], [id number] 0 05/13 Sodiu m mmol/L 135.0 146.0 138 FINAL [facility], [id number] 0 05/13 Potas sium mmol/L 3.5 5.3 3.7 FINAL [facility], [id number] 0 05/13 Chlor gian mmol/L 98.0 110.0 106 FINAL [facility], [id number] 0 05/13 CO2 mmol/L 20.0 32.0 25 FINAL [facility], [id number] 0 05/13 Calci um mg/dL 8.6 10.4 8.2 Low FINAL [facility], [id number] 0 05/13 Total prote in g/dL 6.1 8.1 5.9 Low FINAL [facility], [id number] 0 05/13 Album in g/dL 3.6 5.1 3.5 Low FINAL [facility], [id number] 0 05/13 Globu jarad g/dL(c alc) 1.9 3.7 2.4 FINAL [facility] L[facility], [id number] 0 05/13 A/G ratio (calc) 1.0 2.5 1.5 FINAL [facility]uly [facility], [id number] 0 05/13 Bilir ubin, total mg/dL 0.2 1.2 0.4 FINAL [facility], [id number] 0 05/13 Alkal ine phosp hatas e U/L 37.0 153.0 87 FINAL Philip Luly chino [facility], [id number] 0 05/13 AST/S GOT U/L 10.0 35.0 17 FINAL Philip Luly [facility], [id number] 0 05/13 ALT/S GPT U/L 6.0 29.0 9 FINAL Philip Luly [facility], [id number] 0 05/31 Gluco se mg/dL 65.0 99.0 93 Fasting reference interval FINAL Philip Luly [facility]ino [facility], [id number] 0 05/31 BUN mg/dL 7.0 25.0 14 FINAL Philip Luly [facility], [id number] 0 05/31 Creat inine mg/dL 0.5 1.03 0.62 FINAL Philip Luly [facility], [id number] 0 05/31 EGFR mL/min /1.73m 2 103 FINAL Philip Luly [facility]ino [facility], [id number] 0 05/31 BUN/C reati nine ratio (calc) 6.0 22.0 SEE NOTE: Not Reported: BUN and Creatinin e are within reference range. FINAL Philip Luly chino [facility], [id number] 0 05/31 Sodiu m mmol/L 135.0 146.0 139 FINAL Philip Luly [facility]ino [facility], [id number] 0 05/31 Potas sium mmol/L 3.5 5.3 3.9 FINAL Philip Luly [facility]ino [facility], [id number] 0 05/31 Chlor gian mmol/L 98.0 110.0 106 FINAL Philip Luly [facility]ino [facility], [id number] 0 05/31 CO2 mmol/L 20.0 32.0 26 FINAL Philip Luly [facility]ino [facility], [id number] 0 05/31 Calci um mg/dL 8.6 10.4 8.4 Low FINAL Philip Luly [facility]ino [facility], [id number] 0 05/31 Total prote in g/dL 6.1 8.1 6.3 FINAL Philip Luly [facility], [id number] 0 05/31 Album in g/dL 3.6 5.1 3.7 FINAL Philip Luly [facility], [id number] 0 05/31 Globu jarad g/dL(c alc) 1.9 3.7 2.6 FINAL Philip Luly [facility], [id number] 0 05/31 A/G ratio (calc) 1.0 2.5 1.4 FINAL Philip Luly [facility], [id number] 0 05/31 Bilir ubin, total mg/dL 0.2 1.2 0.4 FINAL Philip Luly [facility], [id number] 0 05/31 Alkal ine phosp hatas e U/L 37.0 153.0 80 FINAL Philip Luly [facility], [id number] 0 05/31 AST/S GOT U/L 10.0 35.0 11 FINAL Philip Luly [facility], [id number] 0 05/31 ALT/S GPT U/L 6.0 29.0 9 FINAL Philip Luly [facility]ino [facility], [id number] 0 05/31 CBC WBC 10^3/u l 4.5 13.0 5.4 FINAL Philip Luly chino [facility], [address] [place] [id number] 0 Anisa Meyers 05/31 CBC RBC 10^6/u l 3.8 5.1 4.15 FINAL Philip Luly chino [facility], [address] [facility] [id number] 0 Anisa Makarian 05/31 CBC HGB g/dl 11.5 15.3 12.4 FINAL Philip Luly [place], [address] [place] [id number] 0 Anisa Makarian 05/31 CBC HCT % 34.0 46.0 39.7 FINAL Philip Luly [place], [address] [place] [id number] 0 Anisa Makarian 05/31 CBC MCV fl 78.0 98.0 95.7 FINAL Philip Luly [place], [address] [facility] [id number] 0 Anisa Makarian 05/31 CBC MCH pg 25.0 35.0 29.9 FINAL Philip Luly [place], [address] [facility] [id number] 0 Anisa Makarian 05/31 CBC MCHC g/dl 31.0 36.0 31.2 FINAL Philip Luly [place], [address] [facility] [id number] 0 Anisa Makarian 05/31 CBC RDW % 11.0 15.0 14.9 FINAL Philip Luly [place], [address] [facility] [id number] 0 Anisa Makarian 05/31 CBC PLT 10^3/u l 140.0 400.0 95 Low sample checked for clot, Verified by repeat analysis FINAL Philip Luly [place], [address] [facility] [id number] 0 Anisa Makarian 05/31 CBC MPV fl 7.5 12.5 11.9 FINAL Philip Luly [place], [address] [facility] [id number] 0 Anisa Makarian 05/31 CBC Glenn % % 40.0 77.0 58.20 FINAL Philip Luly [place], [address] [facility] [id number] Anisa Makarian 05/31 CBC LY % % 15.0 41.0 13.8 Low FINAL Philip Luly [place], [address] [facility] [id number] Anisa Makarian 05/31 CBC MO % % 0.0 9.0 8.4 FINAL Philip Luly [place], [address] [facility] [id number] Anisatonya Chongarian 05/31 CBC EO % % 0.0 3.0 19.2 High FINAL Philip Luly chino [facility], [address] [facility] [id number] Anisa Makarian 05/31 CBC BA % % 0.0 1.0 0.4 FINAL Philip Luly chino [facility], [address] [facility] [id number] Anisatonya Chongarian 05/31 CBC Glenn # (ANC) 10^3/u l 1.8 8.0 3.1 FINAL Philip Luly chino [facility], [address] [facility] [id number] Anisa Castilloarian 05/31 CBC LY # 10^3/u l 1.2 5.2 0.7 Low FINAL Philip Luly chino [facility], [address] [facility] [id number] Anisatonya Meyers 05/31 CBC MO # 10^3/u l 0.2 0.9 0.5 FINAL Philip Luly chino [facility], [address] [facility] [id number] Anisa Mira 05/31 CBC EO # 10^3/u l 0.0 0.5 1.0 High FINAL Philip Luly chino [facility], [address] [facility] [id number] Anisatnoya Meyers 05/31 CBC BA # 10^3/u l 0.0 0.2 0.0 FINAL Philip Luly chino [facility], [address] [facility] [id number] Anisa Meyers Medications Date Name Route Dose Frequency Instructions Start Date End Date Status Fill Status Indication 04/19 Nicotin e Transde rmal Patch 21 mg/24 hr transde rmally 1.0 patch 24 hour daily active 04/19 Acetami nophen Oral orally 1.0 tablet every 6 hours as needed active 04/19 Pantopr azole (Sodium ) Oral Delayed Release orally 40.0 mg daily active 04/19 Hydroco done-Ac etamino phen Oral 7.5 mg-325 mg orally 1.0 tablet every 6 hours as needed active 04/19 Sennosi king-Doc usate Sodium Oral 8.6 mg-50 mg orally 2.0 capsul e two times per day as needed active 04/19 Polyeth ylene Glycol Oral Powder orally 17.0 gram daily active 04/19 Ondanse maty Oral Disinte grating Tablet orally 1.0 tablet ,disin tegrat ing every 8 hours as needed active 04/22 hydroco rtisone 100 MG Injecti on intrave nously 100.0 mg Re-initiate treatment only upon physician approval. 2025 active Renal cell carcinoma 04/22 1 ML epineph rine 1 MG/ML Injecti on intramu scularl y 0.3 mg once Re-initiate treatment only upon physician approval. 2025 active Renal cell carcinoma 04/22 methylp redniso lone 2000 MG Injecti on intrave nously 125.0 mg Re-initiate treatment only upon physician approval. 2025 active Renal cell carcinoma 04/22 24 ML nivolum ab 10 MG/ML Injecti on intrave nously 240.0 mg once Dilute in NS or D5W to a final concentration between 1 mg/mL to 10 mg/mL. Infuse with low protein binding filter (0.2-1.2 micron). Do not mix with other drugs. Do not shake. Flush line at end of infusion. 2025 active Renal cell carcinoma 04/22 diphenh ydramin e hydroch loride 0.5 MG/ML Injecta ble Solutio n intrave nously 50.0 mg Re-initiate treatment only upon physician approval. 2025 active Renal cell carcinoma 04/22 famotid ine 10 MG/ML Injecta ble Solutio n intrave nously 20.0 mg Re-initiate treatment only upon physician approval. 2025 active Renal cell carcinoma 04/22 ondanse maty 8 MG Oral Tablet orally 8.0 mg every 8 hours Max 24 mg in 24 hrs. 2025 active Renal cell carcinoma 04/22 hydroco rtisone 100 MG Injecti on intrave nously 100.0 mg Re-initiate treatment only upon physician approval. 2024 active Renal cell carcinoma 07/18 /2025 1 ML epineph rine 1 MG/ML Injecti on intramu scularl y 0.3 mg once Re-initiate treatment only upon physician approval. 2024 active Renal cell carcinoma 04/22 diphenh ydramin e hydroch loride 0.5 MG/ML Injecta ble Solutio n intrave nously 50.0 mg Re-initiate treatment only upon physician approval. 2024 active Renal cell carcinoma 04/22 24 ML nivolum ab 10 MG/ML Injecti on intrave nously 240.0 mg once Dilute in NS or D5W to a final concentration between 1 mg/mL to 10 mg/mL. Infuse with low protein binding filter (0.2-1.2 micron). Do not mix with other drugs. Do not shake. Flush line at end of infusion. 2024 active Renal cell carcinoma 04/22 famotid ine 10 MG/ML Injecta ble Solutio n intrave nously 20.0 mg Re-initiate treatment only upon physician approval. 2024 active Renal cell carcinoma 04/22 methylp redniso lone 2000 MG Injecti on intrave nously 125.0 mg Re-initiate treatment only upon physician approval. 2024 active Renal cell carcinoma 04/22 ondanse maty 8 MG Oral Tablet orally 8.0 mg every 8 hours Max 24 mg in 24 hrs. 2024 active Renal cell carcinoma 04/22 ondanse maty 8 MG Oral Tablet orally 8.0 mg every 8 hours Max 24 mg in 24 hrs. 2024 active Renal cell carcinoma 04/22 hydroco rtisone 100 MG Injecti on intrave nously 100.0 mg Re-initiate treatment only upon physician approval. 2024 active Renal cell carcinoma 04/22 24 ML nivolum ab 10 MG/ML Injecti on intrave nously 240.0 mg once Dilute in NS or D5W to a final concentration between 1 mg/mL to 10 mg/mL. Infuse with low protein binding filter (0.2-1.2 micron). Do not mix with other drugs. Do not shake. Flush line at end of infusion. 2024 active Renal cell carcinoma 04/22 diphenh ydramin e hydroch loride 0.5 MG/ML Injecta ble Solutio n intrave nously 50.0 mg Re-initiate treatment only upon physician approval. 2024 active Renal cell carcinoma 04/22 famotid ine 10 MG/ML Injecta ble Solutio n intrave nously 20.0 mg Re-initiate treatment only upon physician approval. 2024 active Renal cell carcinoma 04/22 methylp redniso lone 2000 MG Injecti on intrave nously 125.0 mg Re-initiate treatment only upon physician approval. 2024 active Renal cell carcinoma 04/22 1 ML epineph rine 1 MG/ML Injecti on intramu scularl y 0.3 mg once Re-initiate treatment only upon physician approval. 2024 active Renal cell carcinoma 04/22 24 ML nivolum ab 10 MG/ML Injecti on intrave nously 240.0 mg once Dilute in NS or D5W to a final concentration between 1 mg/mL to 10 mg/mL. Infuse with low protein binding filter (0.2-1.2 micron). Do not mix with other drugs. Do not shake. Flush line at end of infusion. 2024 active Renal cell carcinoma 04/22 famotid ine 10 MG/ML Injecta ble Solutio n intrave nously 20.0 mg Re-initiate treatment only upon physician approval. 2024 active Renal cell carcinoma 04/22 hydroco rtisone 100 MG Injecti on intrave nously 100.0 mg Re-initiate treatment only upon physician approval. 2024 active Renal cell carcinoma 04/22 ondanse maty 8 MG Oral Tablet orally 8.0 mg every 8 hours Max 24 mg in 24 hrs. 2024 active Renal cell carcinoma 04/22 methylp redniso lone 2000 MG Injecti on intrave nously 125.0 mg Re-initiate treatment only upon physician approval. 2024 active Renal cell carcinoma 04/22 1 ML epineph rine 1 MG/ML Injecti on intramu scularl y 0.3 mg once Re-initiate treatment only upon physician approval. 2024 active Renal cell carcinoma 04/22 diphenh ydramin e hydroch loride 0.5 MG/ML Injecta ble Solutio n intrave nously 50.0 mg Re-initiate treatment only upon physician approval. 2024 active Renal cell carcinoma 04/22 24 ML nivolum ab 10 MG/ML Injecti on intrave nously 240.0 mg once Dilute in NS or D5W to a final concentration between 1 mg/mL to 10 mg/mL. Infuse with low protein binding filter (0.2-1.2 micron). Do not mix with other drugs. Do not shake. Flush line at end of infusion. 2024 active Renal cell carcinoma 04/22 ondanse maty 8 MG Oral Tablet orally 8.0 mg every 8 hours Max 24 mg in 24 hrs. 2024 active Renal cell carcinoma 04/22 hydroco rtisone 100 MG Injecti on intrave nously 100.0 mg Re-initiate treatment only upon physician approval. 2024 active Renal cell carcinoma 04/22 1 ML epineph rine 1 MG/ML Injecti on intramu scularl y 0.3 mg once Re-initiate treatment only upon physician approval. 2024 active Renal cell carcinoma 04/22 famotid ine 10 MG/ML Injecta ble Solutio n intrave nously 20.0 mg Re-initiate treatment only upon physician approval. 2024 active Renal cell carcinoma 04/22 methylp redniso lone 2000 MG Injecti on intrave nously 125.0 mg Re-initiate treatment only upon physician approval. 2024 active Renal cell carcinoma 04/22 diphenh ydramin e hydroch loride 0.5 MG/ML Injecta ble Solutio n intrave nously 50.0 mg Re-initiate treatment only upon physician approval. 2024 active Renal cell carcinoma 04/22 diphenh ydramin e hydroch loride 0.5 MG/ML Injecta ble Solutio n intrave nously 50.0 mg Re-initiate treatment only upon physician approval. 2024 active Renal cell carcinoma 04/22 1 ML epineph rine 1 MG/ML Injecti on intramu scularl y 0.3 mg once Re-initiate treatment only upon physician approval. 2024 active Renal cell carcinoma 04/22 methylp redniso lone 2000 MG Injecti on intrave nously 125.0 mg Re-initiate treatment only upon physician approval. 2024 active Renal cell carcinoma 04/22 24 ML nivolum ab 10 MG/ML Injecti on intrave nously 240.0 mg once Dilute in NS or D5W to a final concentration between 1 mg/mL to 10 mg/mL. Infuse with low protein binding filter (0.2-1.2 micron). Do not mix with other drugs. Do not shake. Flush line at end of infusion. 2024 active Renal cell carcinoma 04/22 famotid ine 10 MG/ML Injecta ble Solutio n intrave nously 20.0 mg Re-initiate treatment only upon physician approval. 2024 active Renal cell carcinoma 04/22 ondanse maty 8 MG Oral Tablet orally 8.0 mg every 8 hours Max 24 mg in 24 hrs. 2024 active Renal cell carcinoma 04/22 hydroco rtisone 100 MG Injecti on intrave nously 100.0 mg Re-initiate treatment only upon physician approval. 2024 active Renal cell carcinoma 04/22 hydroco rtisone 100 MG Injecti on intrave nously 100.0 mg Re-initiate treatment only upon physician approval. 2024 active Renal cell carcinoma 04/22 24 ML nivolum ab 10 MG/ML Injecti on intrave nously 240.0 mg once Dilute in NS or D5W to a final concentration between 1 mg/mL to 10 mg/mL. Infuse with low protein binding filter (0.2-1.2 micron). Do not mix with other drugs. Do not shake. Flush line at end of infusion. 2024 active Renal cell carcinoma 04/22 diphenh ydramin e hydroch loride 0.5 MG/ML Injecta ble Solutio n intrave nously 50.0 mg Re-initiate treatment only upon physician approval. 2024 active Renal cell carcinoma 04/22 ondanse maty 8 MG Oral Tablet orally 8.0 mg every 8 hours Max 24 mg in 24 hrs. 2024 active Renal cell carcinoma 04/22 1 ML epineph rine 1 MG/ML Injecti on intramu scularl y 0.3 mg once Re-initiate treatment only upon physician approval. 2024 active Renal cell carcinoma 04/22 methylp redniso lone 2000 MG Injecti on intrave nously 125.0 mg Re-initiate treatment only upon physician approval. 2024 active Renal cell carcinoma 04/22 famotid ine 10 MG/ML Injecta ble Solutio n intrave nously 20.0 mg Re-initiate treatment only upon physician approval. 2024 active Renal cell carcinoma 04/22 methylp redniso lone 2000 MG Injecti on intrave nously 125.0 mg Re-initiate treatment only upon physician approval. 2024 active Renal cell carcinoma 04/22 1 ML epineph rine 1 MG/ML Injecti on intramu scularl y 0.3 mg once Re-initiate treatment only upon physician approval. 2024 active Renal cell carcinoma 04/22 famotid ine 10 MG/ML Injecta ble Solutio n intrave nously 20.0 mg Re-initiate treatment only upon physician approval. 2024 active Renal cell carcinoma 04/22 hydroco rtisone 100 MG Injecti on intrave nously 100.0 mg Re-initiate treatment only upon physician approval. 2024 active Renal cell carcinoma 04/22 24 ML nivolum ab 10 MG/ML Injecti on intrave nously 240.0 mg once Dilute in NS or D5W to a final concentration between 1 mg/mL to 10 mg/mL. Infuse with low protein binding filter (0.2-1.2 micron). Do not mix with other drugs. Do not shake. Flush line at end of infusion. 2024 active Renal cell carcinoma 04/22 diphenh ydramin e hydroch loride 0.5 MG/ML Injecta ble Solutio n intrave nously 50.0 mg Re-initiate treatment only upon physician approval. 2024 active Renal cell carcinoma 04/22 ondanse maty 8 MG Oral Tablet orally 8.0 mg every 8 hours Max 24 mg in 24 hrs. 2024 active Renal cell carcinoma 04/22 1 ML epineph rine 1 MG/ML Injecti on intramu scularl y 0.3 mg once Re-initiate treatment only upon physician approval. 2024 active Renal cell carcinoma 04/22 24 ML nivolum ab 10 MG/ML Injecti on intrave nously 240.0 mg once Dilute in NS or D5W to a final concentration between 1 mg/mL to 10 mg/mL. Infuse with low protein binding filter (0.2-1.2 micron). Do not mix with other drugs. Do not shake. Flush line at end of infusion. 2024 active Renal cell carcinoma 04/22 diphenh ydramin e hydroch loride 0.5 MG/ML Injecta ble Solutio n intrave nously 50.0 mg Re-initiate treatment only upon physician approval. 2024 active Renal cell carcinoma 04/22 ondanse maty 8 MG Oral Tablet orally 8.0 mg every 8 hours Max 24 mg in 24 hrs. 2024 active Renal cell carcinoma 04/22 methylp redniso lone 2000 MG Injecti on intrave nously 125.0 mg Re-initiate treatment only upon physician approval. 2024 active Renal cell carcinoma 04/22 famotid ine 10 MG/ML Injecta ble Solutio n intrave nously 20.0 mg Re-initiate treatment only upon physician approval. 2024 active Renal cell carcinoma 04/22 hydroco rtisone 100 MG Injecti on intrave nously 100.0 mg Re-initiate treatment only upon physician approval. 2024 active Renal cell carcinoma 04/22 famotid ine 10 MG/ML Injecta ble Solutio n intrave nously 20.0 mg Re-initiate treatment only upon physician approval. 2024 active Renal cell carcinoma 04/22 methylp redniso lone 2000 MG Injecti on intrave nously 125.0 mg Re-initiate treatment only upon physician approval. 2024 active Renal cell carcinoma 04/22 1 ML epineph rine 1 MG/ML Injecti on intramu scularl y 0.3 mg once Re-initiate treatment only upon physician approval. 2024 active Renal cell carcinoma 04/22 ondanse maty 8 MG Oral Tablet orally 8.0 mg every 8 hours Max 24 mg in 24 hrs. 2024 active Renal cell carcinoma 04/22 diphenh ydramin e hydroch loride 0.5 MG/ML Injecta ble Solutio n intrave nously 50.0 mg Re-initiate treatment only upon physician approval. 2024 active Renal cell carcinoma 04/22 hydroco rtisone 100 MG Injecti on intrave nously 100.0 mg Re-initiate treatment only upon physician approval. 2024 active Renal cell carcinoma 05/26 oxycodo ne hydroch loride 5 MG Oral Tablet orally 1.0 tablet every 4 to 6 hours 2024 active Renal cell carcinoma 05/18 docusat e sodium 50 MG / sennosi king, [facility] 8.6 MG Oral Tablet orally 2.0 tablet 2 times per day 2024 active Renal cell carcinoma 04/22 1 ML epineph rine 1 MG/ML Injecti on intramu scularl y 0.3 mg once Re-initiate treatment only upon physician approval. 2024 active Renal cell carcinoma 04/22 ondanse maty 8 MG Oral Tablet orally 8.0 mg every 8 hours Max 24 mg in 24 hrs. 2024 active Renal cell carcinoma 04/22 famotid ine 10 MG/ML Injecta ble Solutio n intrave nously 20.0 mg Re-initiate treatment only upon physician approval. 2024 active Renal cell carcinoma 05/13 ondanse maty 8 MG Oral Tablet orally 1.0 tablet every 8 hours 2024 active Renal cell carcinoma 05/13 olanzap ine 5 MG Oral Tablet orally 1.0 tablet every day at bedtime 2024 active Renal cell carcinoma 05/13 prochlo rperazi ne 10 MG Oral Tablet orally 1.0 tablet every 6 hours 2024 active Renal cell carcinoma 04/22 methylp redniso lone 2000 MG Injecti on intrave nously 125.0 mg Re-initiate treatment only upon physician approval. 2024 active Renal cell carcinoma 04/22 diphenh ydramin e hydroch loride 0.5 MG/ML Injecta ble Solutio n intrave nously 50.0 mg Re-initiate treatment only upon physician approval. 2024 active Renal cell carcinoma 04/22 hydroco rtisone 100 MG Injecti on intrave nously 100.0 mg Re-initiate treatment only upon physician approval. 2024 active Renal cell carcinoma 05/10 clobeta chiquis propion ate 0.5 MG/ML Topical Cream topical ly 1.0 applic ation 2 times per day 2024 active Renal cell carcinoma 04/22 1 ML epineph rine 1 MG/ML Injecti on intramu scularl y 0.3 mg once Re-initiate treatment only upon physician approval. 2024 active Renal cell carcinoma 04/22 ondanse maty 8 MG Oral Tablet orally 8.0 mg every 8 hours Max 24 mg in 24 hrs. 2024 active Renal cell carcinoma 04/22 hydroco rtisone 100 MG Injecti on intrave nously 100.0 mg Re-initiate treatment only upon physician approval. 2024 active Renal cell carcinoma 04/22 famotid ine 10 MG/ML Injecta ble Solutio n intrave nously 20.0 mg Re-initiate treatment only upon physician approval. 2024 active Renal cell carcinoma 04/22 diphenh ydramin e hydroch loride 0.5 MG/ML Injecta ble Solutio n intrave nously 50.0 mg Re-initiate treatment only upon physician approval. 2024 active Renal cell carcinoma 04/22 methylp redniso lone 2000 MG Injecti on intrave nously 125.0 mg Re-initiate treatment only upon physician approval. 2024 active Renal cell carcinoma 04/26 ondanse maty 4 MG Oral Tablet orally 1.0 tablet 2 to 3 times per day 2024 active Renal cell carcinoma 04/26 pantopr azole 40 MG Delayed Release Oral Tablet orally 1.0 tablet ,delay ed releas e (/EC ) daily 2024 active Renal cell carcinoma 04/26 oxycodo ne hydroch loride 5 MG Oral Tablet orally 1.0 tablet every 4 to 6 hours 2024 active Renal cell carcinoma 04/26 acetami nophen 500 MG Oral Capsule orally 1.0 capsul e every 6 hours 2024 active Renal cell carcinoma 04/26 24 HR nicotin e 0.875 MG/HR Transde rmal System transde rmally 1.0 patch every 24 hours 2024 active Renal cell carcinoma 04/22 cabozan tinib 20 MG Oral Tablet orally 20.0 mg daily Take on an empty stomach, 1 hour before or 2 hours after food. 2024 active Renal cell carcinoma Problems Diagnosis Status Date of Diagnosis Resolution Date Anemia Active Long-term current use of drug therapy Active Bone metastasis Active Renal cell carcinoma Active Vital Signs Date Type Value 04/29/2025 Body Temperature 98.00 04/29/2025 Heart Beat 92.00 04/29/2025 Respiratory Rate 18.00 04/29/2025 Oxygen Saturation 93.00 04/29/2025 BSA 1.80 04/29/2025 Pain Scale 8.00 04/29/2025 Weight 160.70 04/29/2025 Height 65.00 04/29/2025 BMI 26.74 04/29/2025 Intravascular Systolic 115 04/29/2025 Intravascular Diastolic 72 05/13/2025 BSA 1.80 05/13/2025 BMI 26.71 05/13/2025 Height 65.00 05/13/2025 Weight 160.50 05/13/2025 Pain Scale 5.00 05/13/2025 Intravascular Systolic 105 05/13/2025 Intravascular Diastolic 67 05/13/2025 Oxygen Saturation 93.00 05/13/2025 Respiratory Rate 17.00 05/13/2025 Body Temperature 98.20 05/13/2025 Heart Beat 88.00 05/31/2025 BMI 26.08 05/31/2025 Height 65.00 05/31/2025 Weight 156.70 05/31/2025 Pain Scale 6.00 05/31/2025 BSA 1.78 05/31/2025 Oxygen Saturation 92.00 05/31/2025 Respiratory Rate 18.00 05/31/2025 Heart Beat 92.00 05/31/2025 Body Temperature 99.10 05/31/2025 Intravascular Systolic 120 05/31/2025 Intravascular Diastolic 79 Notes Section * Rad Onc Consult RADIATION ONCOLOGY CONSULTATION NOTE Date: 04/28/2025 Patient Name:??Caroline Whitney : 1965 Referring Physician: ? Dr. Honorio Dominique Diagnosis: 1. Stage III Melanoma status post surgery and interferon 2007 2. History of left kidney cancer status post nephrectomy 2009 now metastatic disease including symptomatic involvement of the pelvis History of Present Illness: Caroline Whintey is a 59 year old female with history of stage III melanoma diagnosed in 2007 and additionally left kidney cancer diagnosed in 2009. She had followed at the [facility] for anumber of years. She was last evaluated in the medical oncology clinic in April 2015. She had been under observation at her last evaluation. She did have a left calf excision of tumor and additionallya left groin lymph node dissection. This was performed on October 15, 2007. 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 ??Margins were free of malignancy. She did receive induction interferon for her melanoma in 2007 with the interferon stopped in August 2008. Recently, she presented with bilateral lower abdominal pain as well as chronic low back pain. ??This prompted further imaging including a CT of the chest/abdomen/pelvis. ??This was performed at [facility]. ??There is evidence of 3 right renal masses concerning for kidney cancer. ??There were multifocal lytic destructive lesions involving L5 and the sacrum with associated soft tissue component. ??There were multiple concerning lymph nodes. She underwent a CT-guided biopsy on April 13, 2025 which demonstrated metastatic renal cell carcinoma. ??The pathology was consistent with a clear-cell subtype of renal cell carcinoma. ??It was positive for CAM5.2, RCC,??weak positive for PAX8??and negative for CK7??she has been evaluated by medical oncology. ??She is planned for cabozantinib/nivolumab systemic therapy??which she initiated today. ??She is presenting for discussion regarding the role of palliative radiation in the management of her osseous metastatic disease. She has noted some pain for some time particularly in the lower pelvic area. ??She points to her lower back corresponding to the??CT imaging. ??She does note??some difficulty with walking particularly??some challenges with her left??leg when ambulating.?? She has noted some??urinary and bowel changes that day back to at least a year with some??episodes of incontinence. Past Medical History: Metastatic renal cell carcinoma History of melanoma No history of radiation Allergies: Bee sting, Hepatitis B Vaccines, hepatitis A virus vaccine and magnesium Medications: * Oxycodone Oral 5 mg tablet 1 tablet orally every 4 to 6 hours as needed for pain. * Acetaminophen Oral 500 mg capsule 1 capsule orally every 6 hours as needed for pain. * Pantoprazole (Sodium) Oral Delayed Release 40 mg tablet,delayed release (DR/EC) 40 mg orally daily * Sennosides-Docusate Sodium Oral 8.6 mg-50 mg 8.6-50 mg capsule 2 capsule orally two times per day as needed * Nicotine Transdermal Patch 21 mg/24 hr 21 mg/24 hr patch 24 hour 1 patch transdermally every 24 hours. * Ondansetron Oral 4 mg tablet 1 tablet orally 2 to 3 times per day as needed for nausea and vomiting. * Tylenol (Acetaminophen Oral) 500 mg tablet 1 tablet orally every 6 hours as needed * Cabozantinib Oral (Cabometyx) 20 mg tablet 20 mg orally daily. Take on an empty stomach, 1 hr before or 2 hrs after food. * Hydrocodone-Acetaminophen Oral 7.5 mg-325 mg 7.5-325 mg tablet 1 tablet orally every 6 hours as needed * Miralax (Polyethylene Glycol Oral Powder) 17 gram powder in packet 17 gram orally daily * Pantoprazole (Sodium) Oral Delayed Release 40 mg tablet,delayed release (DR/EC) 1 tablet,delayed release (DR/EC) orally daily. * Nicotine Transdermal Patch 21 mg/24 hr 21 mg/24 hr patch 24 hour 1 patch 24 hour transdermally daily * Ondansetron Oral Disintegrating Tablet 4 mg tablet,disintegrating 1 tablet,disintegrating orally every 8 hours as needed Family History: Her mother had cervical cancer and lung cancer. Social History: Patient is a Smoking Tobacco : Current every day smoker; Smokeless Tobacco : Never used smokeless tobacco; Vaping : Never vaped. She presents with her??daughters. ??She has 4 children. ??She lives in [facility] and [place] Review of Systems: Complete 12 point review of systems was performed and is negative unless otherwise noted in the HPI??or as documented in the review of systems??intake form. Physical Examination: VITAL SIGNS: Vital Signs Blood pressure: 115/72, R arm, Pulse: 92, Temperature: 98 F, Respirations:18, O2 sat: 93%, Pain Scale: 8, Height: 65 in, Weight: 160.7 lb, BSA: 1.8, BMI: 26.74 kg/m2 CONSTITUTIONAL: Conversant, well developed, ECOG PS 2-3 EYES: Anicteric sclerae; no lid-lag or proptosis. RESPIRATORY: Normal respiratory effort. CARDIOVASCULAR: No peripheral edema. SKIN: No rash, lesions or ulcers. MUSCULOSKELETAL: Able to ambulate but slowed with some difficulty with the left leg.? NEURO: Cranial nerves II-XII grossly intact. PSYCH: Intact judgment and insight. Alert and oriented. Radiology and Laboratory Data: I personally reviewed her imaging and the official radiology reports.?? She has extensive disease involving the lumbosacral area. Impression: 59-year-old woman with a history of melanoma and ultimately??renal cell cancer as well now with evidence of??metastatic renal cell carcinoma.?? She presents to discuss role of radiation. Recommendation: I met with her today and reviewed the staging, prognosis and management of kidney cancer. ??I discussed with her that she has evidence of extensive pelvic disease involvement. ??I reviewed with her the role of radiation in this setting??in particular consideration of palliative radiation to the lumb osacrum.?? I discussed with her??the benefits of palliative radiation including??potential pain improvement in particular noting her ongoing symptoms.?? I discussed with her different radiation regimens??including 20 Alejandre in 5 fractions or 30 Alejandre in 10 fractions.?? The potential acute and late effe cts reviewed include but are not limited to fatigue??and gastrointestinal toxicity given the size of her lesion.?? I reviewed with her the need for radiation mapping scan in the form of a CT simulation prior to treatment initiation??with??treatment initiation shortly thereafter.?? She does live quite far from [place]??and it would be challenging to return??on consecutive days.?? As such, we willwork on??referring her to a center closer to home??at this time??likely [place].?? She was grateful for the information and will reach out with any questions or concerns.?? Disposition: referral to radiation center closer to home in anticipation of palliative radiation 5-10 treatmentstargeting the lumbosacral region Thank you for allowing us to participate in the care of this patient. Austin Baltazar MD RADIATION ONCOLOGIST cc: Los Cuevas MD Electronically signed by Austin Baltazar MD 04/29/2025 16:37 CDT * Nurse Note for: 31-MAY-25 [facility] Nurse Note Print Location: Unknown Date/Time Printed: 06/16/2025 04:08 ([facility]) Patient: Caroline Whitney Sex: Female : 1965 Date of Service: 05/31/2025 Allergies : magnesium, hepatitis A virus vaccine, Hepatitis B Vaccines, Bee sting Vital Signs : Time: 07:46. Weight: 156.7 lb (71.08 kg). Height: 65 in (165.10 cm). BMI: 26.08 (kg/m2) . BSA: 1.78(m2) . Temperature: 99.1 F (37.28 C). Pulse: 92 (/min) . Respirations: 18 (/min) . Blood pressure: 120/79 (mm Hg) right arm. Pain Scale: 6. O2 Saturation: 92 (%) . Entered by Andre Delcid 05/31/2025 07:47 Patient Assessment : Positive results Assessment : Complains of Pain-6. IV Access/Lab Draw : IV Access-Peripheral - New Start, Needle Type-Iv Cath, Needle Size-24 Gauge, Access Site-Right Arm,Flush-10ml NS, Site Assess List-Blood Return,No Redness,No Swelling,No Tenderness,No Bruising, SiteCare Checklist-Aseptic Technique, Lab Drawn-No, Access Attempts-1 time(s), Entered By Sindhu Gomez RN on 08:28 IV De-Access : IV Access Method-Peripheral - New Start, IV Access Type-Iv Cath, Line Flushed- 10ml NS, Catheter-Left In, Site Care-Dressing left intact,Cap Changed, Site Assess-Line Intact,No Redness,No Swelling,No Tenderness,No Bruising, Comments-IV left in for bone scan at [place] Entered By Sindhu Gomez RN on : Discharge Note : Comments-Therapy completed without adverse event, Discharged from clinic, Stable, No new complaints, Plan for next patient visit confirmed, Accompanied By-Family, Discharge-Via Wheelchair, Discharge Time-05/31/2025 08:58 Entered By Sindhu Gomez RN on :27 Medication Administration : Incident to: Niraj Nolasco MD Nivolumab + Cabozantinib Q14D Immunotherapy Nivolumab IV, 240 mg/24 mL solution, 240 mg intravenously Piggyback once, Admin over: 30 minutes to30 minutes, Instructions: Dilute in NS or D5W to a final concentration between 1 mg/mL to 10 mg/mL.Infuse with low protein binding filter (0.2-1.2 micron). Do not mix with other drugs. Do not shake.Flush line at end of infusion., Allow Substitution GIVEN: 240 mg Pharmacy plan: Dose Form Description: 240 mg/24 mL solution Dispense/Waste: 240/0 mg Amount in mL: 24 Pharmacy dispense: [facility]: [id number] Dispense/Waste: 240/0 mg Given Dose/Discard: 240/0 mg Admin Details: Comments: checked with Tammy Santiago Start Time: 08:24, Entered By: Sindhu Gomez RN, Stop Time: 08:54, Entered By: Sindhu Gomez RN Admix Fluid: 0.9 % sodium chloride, Admix Fluid Volume: 50mL, Total Volume: 79mL * Nurse Note for: 13-MAY-25 [facility] Nurse Note Print Location: Unknown Date/Time Printed: 06/16/2025 04:08 ([facility]) Patient: Caroline Whitney Sex: Female : 1965 Date of Service: 05/13/2025 Allergies : magnesium, hepatitis A virus vaccine, Hepatitis B Vaccines, Bee sting Vital Signs : Time: 11:23. Weight: 160.5 lb (72.80 kg). Height: 65 in (165.10 cm). BMI: 26.71 (kg/m2) . BSA: 1.8 (m2) . Temperature: 98.2 F (36.78 C). Pulse: 88 (/min) . Respirations: 17 (/min) . Blood pressure: 105/67 (mm Hg). Pain Scale: 5. O2 Saturation: 93 (%) . Entered by Kristen Van 05/13/2025 11:27 Patient Assessment : Positive results Assessment : Complains of Pain-5. IV Access/Lab Draw : IV Access-Peripheral - New Start, Needle Type-Iv Cath, Needle Size-24 Gauge, Access Site-Right Arm,Flush-10ml NS, Site Assess List-Blood Return,No Redness,No Swelling,No Tenderness,No Bruising, SiteCare Checklist-Aseptic Technique, Lab Drawn-No, Access Attempts-2 time(s),R Arm, Entered By Sindhu Gomez RN on 12:18 IV De-Access : IV Access Method-Peripheral - New Start, IV Access Type-Iv Cath, Line Flushed- 10ml NS, Catheter-Dc'd, Site Care-Site Dressing Applied,Therapy Completed Without Adverse Event, Site Assess-Line Intact,No Redness,No Swelling,No Tenderness,No Bruising, Entered By Sindhu Gomez RN on 12:58 Discharge Note : Comments-Therapy completed without adverse event, Discharged from clinic, Stable, No new complaints, Plan for next patient visit confirmed, Accompanied By-Family, Discharge-Ambulatory, Discharge Time-05/13/2025 12:57 Entered By Sindhu Gomez RN on 12:58 Medication Administration : Incident to: Anisa Meyers Nivolumab + Cabozantinib Q14D Immunotherapy Nivolumab IV, 240 mg/24 mL solution, 240 mg intravenously Piggyback once, Admin over: 30 minutes to30 minutes, Instructions: Dilute in NS or D5W to a final concentration between 1 mg/mL to 10 mg/mL.Infuse with low protein binding filter (0.2-1.2 micron). Do not mix with other drugs. Do not shake.Flush line at end of infusion., Allow Substitution GIVEN: 240 mg Pharmacy plan: Dose Form Description: 240 mg/24 mL solution Dispense/Waste: 240/0 mg Amount in mL: 24 Pharmacy dispense: [facility]: [id number] Dispense/Waste: 240/0 mg Given Dose/Discard: 240/0 mg Admin Details: Comments: checked with A Russ Start Time: 12:16, Entered By: Sindhu Gomez RN, Stop Time: 12:46, Entered By: Sindhu Gomez RN Admix Fluid: 0.9 % sodium chloride, Admix Fluid Volume: 50mL, Total Volume: 79mL * Nurse Note for: 29-APR-25 [facility] Nurse Note Print Location: Unknown Date/Time Printed: 06/16/2025 04:08 ([facility]) Patient: Caroline Whitney Sex: Female : 1965 Date of Service: 04/29/2025 Allergies : magnesium, hepatitis A virus vaccine, Hepatitis B Vaccines, Bee sting Vital Signs : Time: 09:31. Weight: 160.7 lb (72.89 kg). Height: 65 in (165.10 cm). BMI: 26.74 (kg/m2) . BSA: 1.8 (m2) . Temperature: 98 F (36.67 C). Pulse: 92 (/min) . Respirations: 18 (/min) . Blood pressure: 115/72 (mm Hg) right arm. Pain Scale: 8. O2 Saturation: 93 (%) . Entered by Terri Garzon 04/29/2025 09:33 Patient Assessment : Positive results Assessment : Complains of Pain-8. IV Access/Lab Draw : IV Access-Peripheral - New Start, Needle Type-Iv Cath, Needle Size-22 Gauge, Access Site-Right Arm,Flush-10ml NS, Site Assess List-Blood Return,No Redness,No Swelling,No Tenderness,No Bruising, SiteCare Checklist-Aseptic Technique, Lab Drawn-Yes, Tube Color-Lavender,SST, Access Attempts-1 time(s), Entered By Sindhu Gomez RN on 11:29 IV De-Access : IV Access Method-Peripheral - New Start, IV Access Type-Iv Cath, Line Flushed- 10ml NS, Catheter-Dc'd, Site Care-Site Dressing Applied,Therapy Completed Without Adverse Event, Site Assess-Line Intact,No Redness,No Swelling,No Tenderness,No Bruising, Entered By Sindhu Gomez RN on 12:40 Discharge Note : Comments-Therapy completed without adverse event, Discharged from clinic, Stable, No new complaints, Plan for next patient visit confirmed, Accompanied By-Family, Discharge-Ambulatory, with assistivedevice, Discharge Time-04/29/2025 11:55 Entered By Sindhu Gomez RN on 12:40 Medication Administration : Incident to: Austin Martinez MD Nivolumab + Cabozantinib Q14D Immunotherapy Nivolumab IV, 240 mg/24 mL solution, 240 mg intravenously Piggyback once, Admin over: 30 minutes to30 minutes, Instructions: Dilute in NS or D5W to a final concentration between 1 mg/mL to 10 mg/mL.Infuse with low protein binding filter (0.2-1.2 micron). Do not mix with other drugs. Do not shake.Flush line at end of infusion., Allow Substitution GIVEN: 240 mg Pharmacy plan: Dose Form Description: 240 mg/24 mL solution Dispense/Waste: 240/0 mg Amount in mL: 24 Pharmacy dispense: [facility]: [id number] Dispense/Waste: 240/0 mg Given Dose/Discard: 240/0 mg Admin Details: Comments: checked with Kita Paulson Start Time: 11:11, Entered By: Sindhu Gomez RN, Stop Time: 11:41, Entered By: Sindhu Gomez RN Admix Fluid: 0.9 % sodium chloride, Admix Fluid Volume: 50mL, Total Volume: 79mL
--- OUTSIDE RECORDS SUMMARY | 2025-06-16 04:08 | XMS_ITS | Encounter Summary ---
Author Organization [facility] Address [address] [place] [address] Care Team Providers Care Dining Room Cashier Name Role Phone Los Cuevas MD Primary Care Provider [phone] [phone] Encounter Details Date Type Department Care Team (Late st Contact Info) Description 06/09/[address] 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
--- NOTE | 2025-06-16 04:11 | XRR_ITS ---
PROCEDURE INFORMATION: Exam: XR Chest Exam date and time: 06/16/2025 4:14 AM Age: 59 years old Clinical indication: Fever TECHNIQUE: Imaging protocol: Radiologic exam of the chest. Views: 1 view. COMPARISON: CT chest abdpel w/*[id number] 04/12/2025 5:42 PM FINDINGS: Lungs: Unremarkable. No consolidation. Pleural spaces: Unremarkable. No pleural effusion. No pneumothorax. Heart/Mediastinum: Unremarkable. No cardiomegaly. Bones/joints: Unremarkable. Minimally increased density laterally the left lung base. Severe degenerative changes of the shoulders. XR/XR chest 1V portable [id number] IMPRESSION: Minimal atelectasis or infiltrate on.
--- NOTE | 2025-06-16 04:12 | ED_ITS ---
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 States she has pain in her lower abdomen that is currently 6 out of 10 is like her chronic pain states she has also had some low-grade fevers at home. She denies any vomiting or diarrhea. Associated Symptoms: Reports fever(s), nausea and vomiting; Denies chills, diarrhea and dysuria Related Data Home Medications ?Medication ?Instructions ?Recorded ?Confirmed acetaminophen 500 mg tablet 500 mg PO Q6H PRN Mild/mod erate 06/16/25 06/16/25 pain cabozantinib 20 mg tablet 20 mg PO DAILY 06/16/2506/06 (Cabometyx) clobetasol 0.05 % topical cream See Rx Instructions .R oute .COMPLEX 06/16/25 06/16/25 olanzapine 5 mg tablet 5 mg PO QPM 06/16/25 5 ondansetron HCl 8 mg tablet 8 mg PO Q6H PRN Nausea And Vomiting 06/16/25 06/16/25 oxycodone 5 mg tablet 5 mg PO .Q4-6H PRN Pain 06/0606/16/25 pantoprazole 40 mg tablet,delayed 40 mg PO DAILY 06/1606/16/25 release prochlorperazine maleate 10 mg 10 mg PO Q8H PRN Nausea 06/16/25 06/16/25 tablet sennosides 8.6 mg-docusate sodium 2 tab PO BID PRN Con stipation 06/16/25 06/16/25 50 mg tablet (Stool Softener-Laxative) Previous Rx's ?Medication ?Instructions ?Recorded cephalexin 500 mg capsule 500 mg PO TID 7 days #21 cap s 06/16/25 Allergies Allergy/AdvReac Type Severity Reaction Status Date / Time bee venom protein (honey bee) Allergy Unknown Verified 04/11/25 12:00 hepatitis B virus vaccine Allergy Unknown Verified 04/11/25 12:00 magnesium sulfate (From Allergy Unknown Verified 04/11/25 12:00 Epsom Salt) soap Allergy Unknown Verified 04/11/25 12:00 Review of Systems 2 Const: Reports: fever(s); Denies: chills, body aches or change in appetite Eyes: Denies: blurry vision or eye discomfort ENMT: Denies: throat pain or dental pain Card: Denies: chest pain Resp: Denies: dyspnea GI: Reports: abdominal pain, nausea and vomiting; Denies: diarrhea : Denies: dysuria Musc: Denies: neck pain or back pain Skin/Breast: Denies: rash Neuro: Denies: headache(s) PFSH ED 2 PFSH: Medical History History of melanoma Renal cell carcinoma Surgical History (Updated 04/23/25 @ 16:40 by Bello Gloria DO) H/O left nephrectomy Physical Exam 2 Const: COMMON NORMALS: patient oriented x3 HENMT: COMMON NORMALS: normocephalic and atraumatic HEAD & SCALP: n ormocephalic and atraumatic Eye: COMMON NORMALS: Equal, round and reactive pupils present and EOMs intact bilaterally PUPIL: Yes Equal, round and reactive pupils present Neck/C-Spine: COMMON NORMALS: full ROM and supple Chest: COMMONS NORMALS: normal inspection of the chest Resp: COMMON NORMALS: normal respiratory effort, No retractions, No use of accessory muscles and clear to auscultation bilaterally AUSCULTATION: clear to auscultation bilaterally Cardio: COMMON NORMALS: regular rhythm and No murmurs present (Cardio) R ATE: tachycardic RHYTHM: regular rhythm GI: COMMON NORMALS: Normal to inspection, nondistended, normoactive bowel sounds present, Soft to palpation, non-tender and no masses PALPATION: Yes Soft to palpation Extremity: COMMON NORMALS: normal to inspection and full ROM Neuro: COMMON NORMALS: patient oriented x3, moves all extremities and no focal motor deficits Psych: COMMON NORMALS: mental status grossly normal, Normal thought process present and cooperative THOUGHT PROCESS: Normal thought process present Skin: COMMON NORMALS: no rashes or lesions noted and no wounds GENERAL SKIN EXAM: no rashes or lesions noted Course 2 Vital Signs: Vital signs: Vital Signs Temperature 98.4 F 06/16/25 06:48 Pulse Rate 92 06/16/25 10:37 Respiratory Rate 16 06/16/25 04:07 Blood Pressure 117/69 06/16/25 10:37 Pulse Oximetry 90 06/16/25 10:37 Oxygen Delivery Me thod Room Air 06/16/25 10:37 MDM - Abdominal Pain Medical Records I reviewed the patient's medical records. Lab Data I reviewed the patient's lab results. 06/16/25 04:11 06/16/25 04:11 Labs/Radiology: Radiology Impressions Chest X-Ray 06/16/25 04:11 IMPRESSION: Minimal atelectasis or infiltrate on. Abdomen/Pelvis CT 06/16/25 04:41 IMPRESSION: 1. Slightly increasing obstructive changes in the solitary right kidney. Thickening of the urothelium of the ureter with focal narrowing. 2. Improved right renal masses. 3. Stable bony destruction of the lower lumbosacral spine with extensive soft tissue involvement. Laboratory Results WBC 10.54 10^3/uL (3.29-11.43) 06/16/25 04:11 RBC 4.43 10^6/uL (3.85-5.65) 06/16/25 04:11 Hgb 12.90 g/dL (11.27-16.99) 06/16/25 04:11 Hct 39.1 % (36-47) 06/16/25 04:11 MCV 88.3 fl (85-98) 06/16/25 04:11 MCH 29.1 pg (27-33) 06/16/25 04:11 MCHC 33.0 g/dL (30-55) 06/16/25 04:11 RDW 13.9 % (12.1-15.1) 06/16/25 04:11 Plt Count 237 10^3/cmm (157-399) 06/16/25 04:11 MPV 9.0 fL (7.4-10.4) 06/16/25 04:11 Neut % (Auto) 80.8 % 06/16/25 04:11 Lymph % (Auto) 7.5 % 06/16/25 04:11 [place] % (Auto) 8.5 % 06/16/25 04:11 Eos % (Auto) 0.9 % 06/16/25 04:11 Baso % (Auto) 0.3 % 06/16/25 04:11 Neut # (Auto) 8.52 10^3/uL (1.8-7.7) H 06/16/25 04:11 Lymph # (Auto) 0.8 10^3/uL (0.8-4.8) 06/16/25 04:11 [place] # (Auto) 0.9 10^3/uL (0.2-0.9) 06/16/25 04:11 Eos # (Auto) 0.1 10^3/uL (0.0-0.8) 06/16/25 04:11 Baso # (Auto) 0.0 10^3/uL (0.0-0.1) 06/16/25 04:11 Nucleated RBC % (auto) 0 % 06/16/25 04:11 Nucleated RBCs # 0.0 /100WBC 06/16/25 04:11 Sodium 137 mmol/L (136-145) 06/16/25 04:11 Potassium 3.5 mmol/L (3.5-5.1) 06/16/25 04:11 Chloride 104 mmol/L (98-107) 06/16/25 04:11 Carbon Dioxide 16 mmol/L (22-29) L 06/16/25 04:11 Anion Gap 20.5 (5-19) H 06/16/25 04:11 BUN 26 mg/dL (6-20) H 06/16/25 04:11 Creatinine 1.2 mg/dL (0.5-0.9) H 06/16/25 04:11 GFR Calculation 46.1 mL/min (90-130) L 06/16/25 04:11 Glucose 180 mg/dL (65-115) H 06/16/25 04:11 Calculated Osmolality 293 mOsm/kg (285-295) 06/16/25 04:11 Lactic Acid 2.5 mmol/L (0.5-2.2) H 06/16/25 04:11 Lactic Acid (Sepsis) 0.9 mmol/L (0.5-2.2) 06/16/25 06:50 Calcium 8.3 mg/dL (8.5-10.5) L 06/16/25 04:11 Total Bilirubin 0.2 mg/dL (0.15-1.2) 06/16/25 04:11 AST 9 U/L (0-32) 06/16/25 04:11 ALT 12 U/L (0-33) 06/16/25 04:11 Alkaline Phosphatase 337 U/L (35-105) H 06/16/25 04:11 Total Protein 6.5 g/dL (6.6-8.7) L 06/16/25 04:11 Albumin 3.1 g/dL (3.5-5.2) L 06/16/25 04:11 Globulin 3.4 g/dL (1.3-4.6) 06/16/25 04:11 Lipase 84 U/L (13-60) H 06/16/25 04:11 Urine Color Yellow (Yellow) 06/16/25 04:14 Urine Appearance Turbid (CLEAR) A 06/16/25 04:14 Urine pH 6.5 (5-7) 06/16/25 04:14 Ur Specific [place] 1.011 (1.005-1.030) 06/16/25 04:14 Urine Protein 3+ (Negative) A 06/16/25 04:14 Urine Glucose (UA) Negative (Normal) 06/16/25 04:14 Urine Ketones Negative (Negative) 06/16/25 04:14 Urine Blood 3+ (Negative) A 06/16/25 04:14 Urine Nitrate Negative (Negative) 06/16/25 04:14 Urine Bilirubin Negative (Negative) 06/16/25 04:14 Urine Urobilinogen 0.2 mg/dL (Negative) 06/16/25 04:14 Ur Leukocyte Esterase 3+ (Negative) A 06/16/25 04:14 Urine RBC 3-5 /hpf (0-2) 06/16/25 04:14 Urine WBC >100 /hpf (0-5) H 06/16/25 04:14 Ur Squamous Epith Cells 21-50 /hpf (0-5) H 06/16/25 04:14 Amorphous Sediment Not Reportable 06/16/25 04:14 Urine Bacteria 4+ /hpf (NONE) H 06/16/25 04:14 Hyaline Casts 0-4 /lpf H 06/16/25 04:14 All radiology interpretation(s) finalized by discharge Discharge Plan Discharge Patient Disposition: Xfer Short-Term Hosp Clinical Impression: Acute cystitis, Renal cell carcinoma, Solitary right kidney, Stenosis of right ureter Condition: Stable Referrals: Los Cuevas [Primary Care Provider, [facility]] Discharge Diet: Advance as tolerated Discharge Activity: Resume usual activity Patient Instructions: Urinary Tract Infection in Women (ED), Abdominal Pain (ED) Print Language: Indian Coding Level of Care Code ED Production Illustrator for Chg Fwd Documented by User: Bello Gloria DO 06/16/25 11:15 HPI - Abdominal Pain 2 General: Chief Complaint: Nausea/Vomiting/Diarrhea Stated Complaint: Hurting, N/V, Fever Time Seen by Provider: 06/16/25 04:09 Related Data Home Medications ?Medication ?Instructions ?Recorded ?Confirmed acetaminophen 500 mg tablet 500 mg PO Q6H PRN Mild/mod erate 06/16/25 06/16/25 pain cabozantinib 20 mg tablet 20 mg PO DAILY 06/16/2506/06 (Cabometyx) clobetasol 0.05 % topical cream See Rx Instructions .R oute .COMPLEX 06/16/25 06/16/25 olanzapine 5 mg tablet 5 mg PO QPM 06/16/25 5 ondansetron HCl 8 mg tablet 8 mg PO Q6H PRN Nausea And Vomiting 06/16/25 06/16/25 oxycodone 5 mg tablet 5 mg PO .Q4-6H PRN Pain 06/0606/16/25 pantoprazole 40 mg tablet,delayed 40 mg PO DAILY 06/1606/16/25 release prochlorperazine maleate 10 mg 10 mg PO Q8H PRN Nausea 06/16/25 06/16/25 tablet sennosides 8.6 mg-docusate sodium 2 tab PO BID PRN Con stipation 06/16/25 06/16/25 50 mg tablet (Stool Softener-Laxative) Previous Rx's ?Medication ?Instructions ?Recorded cephalexin 500 mg capsule 500 mg PO TID 7 days #21 cap s 06/16/25 Allergies Allergy/AdvReac Type Severity Reaction Status Date / Time bee venom protein (honey bee) Allergy Unknown Verified 04/11/25 12:00 hepatitis B virus vaccine Allergy Unknown Verified 04/11/25 12:00 magnesium sulfate (From Allergy Unknown Verified 04/11/25 12:00 Epsom Salt) soap Allergy Unknown Verified 04/11/25 12:00 PFS ED 2 PFSH: Medical History History of melanoma Renal cell carcinoma Surgical History (Updated 04/23/25 @ 16:40 by Bello Gloria DO) H/O left nephrectomy Course 2 Vital Signs: Vital signs: Vital Signs Temperature 98.4 F 06/16/25 06:48 Pulse Rate 92 06/16/25 10:37 Respiratory Rate 16 06/16/25 04:07 Blood Pressure 117/69 06/16/25 10:37 Pulse Oximetry 90 06/16/25 10:37 Oxygen Delivery Me thod Room Air 06/16/25 10:37 MDM - Abdominal Pain Medical Decision Making Care assumed at change of shift as patient has cystitis. We did get blood cultures on her. She has received fluids repeat lactate is normal. Urine has been cultured as well. CT returned showing increasing obstructive changes in the distal ureter of her solitary right kidney. She does have a mild ISAIAH creatinine is up to 1.2 slightly off her baseline. Discussed with hospitalist they are not comfortable managing here because of her stenosis they are concerned she may need a stent. Will discuss with Adrianna at [facility] where she has been seen before waiting for oncology and hospitalist to call back to arrange for transfer. Oncology and hospitalist are reviewed case agreed to accept patient in transfer discussed with the patient. She had blood cultures urine cultures and initial dose of ceftriaxone IV fluids that she is stable at this time her lactic acid is decreasing. Lab Data 06/16/25 04:11 06/16/25 04:11 Labs/Radiology: Radiology Impressions Chest X-Ray 06/16/25 04:11 IMPRESSION: Minimal atelectasis or infiltrate on. Abdomen/Pelvis CT 06/16/25 04:41 IMPRESSION: 1. Slightly increasing obstructive changes in the solitary right kidney. Thickening of the urothelium of the ureter with focal narrowing. 2. Improved right renal masses. 3. Stable bony destruction of the lower lumbosacral spine with extensive soft tissue involvement. Laboratory Results WBC 10.54 10^3/uL (3.29-11.43) 06/16/25 04:11 RBC 4.43 10^6/uL (3.85-5.65) 06/16/25 04:11 Hgb 12.90 g/dL (11.27-16.99) 06/16/25 04:11 Hct 39.1 % (36-47) 06/16/25 04:11 MCV 88.3 fl (85-98) 06/16/25 04:11 MCH 29.1 pg (27-33) 06/16/25 04:11 MCHC 33.0 g/dL (30-55) 06/16/25 04:11 RDW 13.9 % (12.1-15.1) 06/16/25 04:11 Plt Count 237 10^3/cmm (157-399) 06/16/25 04:11 MPV 9.0 fL (7.4-10.4) 06/16/25 04:11 Neut % (Auto) 80.8 % 06/16/25 04:11 Lymph % (Auto) 7.5 % 06/16/25 04:11 [place] % (Auto) 8.5 % 06/16/25 04:11 Eos % (Auto) 0.9 % 06/16/25 04:11 Baso % (Auto) 0.3 % 06/16/25 04:11 Neut # (Auto) 8.52 10^3/uL (1.8-7.7) H 06/16/25 04:11 Lymph # (Auto) 0.8 10^3/uL (0.8-4.8) 06/16/25 04:11 [place] # (Auto) 0.9 10^3/uL (0.2-0.9) 06/16/25 04:11 Eos # (Auto) 0.1 10^3/uL (0.0-0.8) 06/16/25 04:11 Baso # (Auto) 0.0 10^3/uL (0.0-0.1) 06/16/25 04:11 Nucleated RBC % (auto) 0 % 06/16/25 04:11 Nucleated RBCs # 0.0 /100WBC 06/16/25 04:11 Sodium 137 mmol/L (136-145) 06/16/25 04:11 Potassium 3.5 mmol/L (3.5-5.1) 06/16/25 04:11 Chloride 104 mmol/L (98-107) 06/16/25 04:11 Carbon Dioxide 16 mmol/L (22-29) L 06/16/25 04:11 Anion Gap 20.5 (5-19) H 06/16/25 04:11 BUN 26 mg/dL (6-20) H 06/16/25 04:11 Creatinine 1.2 mg/dL (0.5-0.9) H 06/16/25 04:11 GFR Calculation 46.1 mL/min (90-130) L 06/16/25 04:11 Glucose 180 mg/dL (65-115) H 06/16/25 04:11 Calculated Osmolality 293 mOsm/kg (285-295) 06/16/25 04:11 Lactic Acid 2.5 mmol/L (0.5-2.2) H 06/16/25 04:11 Lactic Acid (Sepsis) 0.9 mmol/L (0.5-2.2) 06/16/25 06:50 Calcium 8.3 mg/dL (8.5-10.5) L 06/16/25 04:11 Total Bilirubin 0.2 mg/dL (0.15-1.2) 06/16/25 04:11 AST 9 U/L (0-32) 06/16/25 04:11 ALT 12 U/L (0-33) 06/16/25 04:11 Alkaline Phosphatase 337 U/L (35-105) H 06/16/25 04:11 Total Protein 6.5 g/dL (6.6-8.7) L 06/16/25 04:11 Albumin 3.1 g/dL (3.5-5.2) L 06/16/25 04:11 Globulin 3.4 g/dL (1.3-4.6) 06/16/25 04:11 Lipase 84 U/L (13-60) H 06/16/25 04:11 Urine Color Yellow (Yellow) 06/16/25 04:14 Urine Appearance Turbid (CLEAR) A 06/16/25 04:14 Urine pH 6.5 (5-7) 06/16/25 04:14 Ur Specific [place] 1.011 (1.005-1.030) 06/16/25 04:14 Urine Protein 3+ (Negative) A 06/16/25 04:14 Urine Glucose (UA) Negative (Normal) 06/16/25 04:14 Urine Ketones Negative (Negative) 06/16/25 04:14 Urine Blood 3+ (Negative) A 06/16/25 04:14 Urine Nitrate Negative (Negative) 06/16/25 04:14 Urine Bilirubin Negative (Negative) 06/16/25 04:14 Urine Urobilinogen 0.2 mg/dL (Negative) 06/16/25 04:14 Ur Leukocyte Esterase 3+ (Negative) A 06/16/25 04:14 Urine RBC 3-5 /hpf (0-2) 06/16/25 04:14 Urine WBC >100 /hpf (0-5) H 06/16/25 04:14 Ur Squamous Epith Cells 21-50 /hpf (0-5) H 06/16/25 04:14 Amorphous Sediment Not Reportable 06/16/25 04:14 Urine Bacteria 4+ /hpf (NONE) H 06/16/25 04:14 Hyaline Casts 0-4 /lpf H 06/16/25 04:14 Discharge Plan Discharge Patient Disposition: Xfer Short-Term Hosp Clinical Impression: Acute cystitis, Renal cell carcinoma, Solitary right kidney, Stenosis of right ureter Condition: Stable Referrals: Los Cuevas [Primary Care Provider, [facility]] Discharge Diet: Advance as tolerated Discharge Activity: Resume usual activity Patient Instructions: Urinary Tract Infection in Women (ED), Abdominal Pain (ED) Print Language: Indian Coding Level of Care Code ED Production Illustrator for Kyle Johnson
--- OUTSIDE RECORDS SUMMARY | 2025-06-16 04:12 | XMS_ITS | Encounter Summary ---
Author Organization [facility] Address [address] [place] [address] Care Team Providers Care Oral And Maxillofacial Surgery Name Role Phone Los Cuevas MD Primary Care Provider [phone] [phone] Encounter Details Date Type Department Care Team (Late st Contact Info) Description 07/02/2004 Outpatient Historical [facility] FY06 [place] [address] [facility] [address] [place] [id number] Social History Tobacco Use Types Packs/Day Years Used Date Smoking Tobacco: Never Assessed Comments Unknown Sex and Gender Information Value Date Recorded Sex Assigned at Not on file 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
--- OUTSIDE RECORDS SUMMARY | 2025-06-16 04:12 | XMS_ITS | Encounter Summary ---
Author Organization [facility] Address [address] [place] [address] Care Team Providers Care Rug Hooker Hand Name Role Phone Los Cuevas MD Primary Care Provider [phone] [phone] Encounter Details Date Type Department Care Team (Latest Contact Info) Description 06/28/2004 Outpatient Historical [facility] General Surgery [address] [place] [address] [address] [place] [address] [place] [address] [facility] [address] [place] [address] UNCERTAIN BEHAV NEOPL SKIN (Primary Dx) Social History Tobacco Use Types Packs/Day Years Used Date Smoking Tobacco: Never Assessed Comments Unknown Sex and Gender Information Value Date Recorded Sex Assigned at Not on file 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
--- OUTSIDE RECORDS SUMMARY | 2025-06-16 04:12 | XMS_ITS | Encounter Summary ---
Author Organization [facility] Address [address] [place] [address] Care Team Providers Care Advertising Teacher Name Role Phone Los Cuevas MD Primary Care Provider [phone] [phone] Encounter Details Date Type Department Care Team (Latest Contact Info) Description 06/08/2002 Outpatient Historical [facility] Family Medicine- [address] [place] [address] Man Le[place], NO ADDRESS ON FILE NONSPECIF SKIN ERUPT NEC (Primary Dx); URINARY FREQUENCY Social History Tobacco Use Types Packs/Day Years Used Date Smoking Tobacco: Never Assessed Comments Unknown Sex and Gender Information Value Date Recorded Sex Assigned at Not on file 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
--- OUTSIDE RECORDS SUMMARY | 2025-06-16 04:12 | XMS_ITS | Encounter Summary ---
Author Organization [facility] Address [address] [place] [address] Care Team Providers Care Civil Engineering Project Manager Name Role Phone Los Cuevas MD Primary Care Provider [phone] [phone] Encounter Details Date Type Department Care Team (Latest Contact Info) Description 09/11/[address] 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
--- OUTSIDE RECORDS SUMMARY | 2025-06-16 04:12 | XMS_ITS | Clinical Summary ---
Author Organization [facility] Address [address] [place] [address] Care Team Providers Care Tobacco Warehouse Agent Name Role Phone Los Cuevas MD Primary Care Provider [phone] [phone] Allergies Active Allergy Reactions Criticality Noted Date Comments Allergen Dxi-Jjoxo-Hutso Bee Unknown Hepatitis B Virus Vaccine Unknown Magnesium Sulfate (Bulk) Rash Low 12/25/2009 Soap Unknown Medications fluticasone propionate (FLONASE) 50 mcg/spray [employer], Suspension nasal inhalerIndicatio ns:Seasonal allergic rhinitis, unspecified [...] 12/21/19 17 Overview (09/15/2012): Mammo: 06/16 (at [facility]) Necrotizing fasciitis 03/31/20092012 Overview (03/31/2009): 08/13, 11/14, Treated at [facility] Melanoma of Skin, L leg (2008) 06/21/2013 Overview (04/03/2009): Treated at [facility] [place] S/P Surgical excision, radiation therapy Followed by [...] on file 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
--- OUTSIDE RECORDS SUMMARY | 2025-06-16 04:12 | XMS_ITS | Encounter Summary ---
Author Organization [facility] Address [address] [place] [address] Care Team Providers Care Ash Handler Name Role Phone Los Cuevas MD Primary Care Provider [phone] [phone] Encounter Details Date Type Department Care Team (Latest Contact Info) Description 07/15/[address] 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
--- OUTSIDE RECORDS SUMMARY | 2025-06-16 04:12 | XMS_ITS | Encounter Summary ---
Author Organization [facility] Address [address] [place] [address] Care Team Providers Care Strategic Sourcing Consultant Name Role Phone Los Cuevas MD Primary Care Provider [phone] Encounter Details Date Type Department Care Team (Latest Contact Info) Description 07/23/2007 Outpatient Historical [facility] Family Medicine [address] [address] Hermelindo Garzon NP NO ADDRESS ON FILE Metrorrhagia (Primary Dx); Sebaceous Cyst Social History Tobacco Use Types Packs/Day Years Used Date Smoking Tobacco: Never Assessed Comments Unknown Sex and Gender Information Value Date Recorded Sex Assigned at Not on file Legal Sex Female 4:20 AM FLARER Gender Identity Not on file Sexual Orientation Not on file documented as of this encounter Plan of Treatment Not on file documented as of this encounter Visit Diagnoses Diagnosis Metrorrhagia- Primary Sebaceous cyst documented in this encounter Care Teams Strategic Sourcing Consultant Relationship Specialty Start Date End Date Los Cuevas MD [address] [address] PCP - General Family Practice 07/02/16 documented as of this encounter
--- OUTSIDE RECORDS SUMMARY | 2025-06-16 04:12 | XMS_ITS | Encounter Summary ---
Author Organization [facility] Address [address] [place] [address] Care Team Providers Care Senior Packaging Engineer Name Role Phone Los Cuevas MD Primary Care Provider [phone] Encounter Details Date Type Department Care Team (Latest Contact Info) Description 06/18/2004 Outpatient Historical [facility] Family Medicine- [address] [place] [address] Mikayla Stein MD NO ADDRESS ON FILE ALLERGIC RHINITIS NOS (Primary Dx); ABDOMINAL PAIN UNSPEC SITE; VAGINITIS NOS; UNCERTAIN BEHAV NEOPL SKIN Social History Tobacco Use Types Packs/Day Years Used Date Smoking Tobacco: Never Assessed Comments Unknown Sex and Gender Information Value Date Recorded Sex Assigned at Not on file Legal Sex Female 4:20 AM COMPLIANCE REVIEWER Gender Identity Not on file Sexual Orientation Not on file documented as of this encounter Plan of Treatment Not on file documented as of this encounter Visit Diagnoses Diagnosis Allergic rhinitis, cause unspecified- Primary Abdominal pain, unspecified site Vaginitis and vulvovaginitis, unspecified Neoplasm of uncertain behavior of skin documented in this encounter Care Teams Senior Packaging Engineer Relationship Specialty Start Date End Date Los Cuevas MD [address] [facility] [address] [place] [address] PCP - General Family Practice 07/02/16 documented as of this encounter
--- OUTSIDE RECORDS SUMMARY | 2025-06-16 04:12 | XMS_ITS | Encounter Summary ---
Author Organization [facility] Address [address] [place] [address] Care Team Providers Care Vibrator Operator Name Role Phone Los Cuevas MD Primary Care Provider [phone] Encounter Details Date Type Department Care Team (Latest Contact Info) Description 07/06/2004 Outpatient Historical [facility] Family Medicine- [address] [place] [address] Mikayla Stein MD NO ADDRESS ON FILE IRRITABLE COLON (Primary Dx); FEM PELV INFLAM DIS NOS Social History Tobacco Use Types Packs/Day Years Used Date Smoking Tobacco: Never Assessed Comments Unknown Sex and Gender Information Value Date Recorded Sex Assigned at Not on file Legal Sex Female 4:20 AM DATA COMMUNICATIONS ENGINEER Gender Identity Not on file Sexual Orientation Not on file documented as of this encounter Plan of Treatment Not on file documented as of this encounter Visit Diagnoses Diagnosis Irritable bowel syndrome- Primary Unspecified inflammatory disease of female pelvic organs and tissues documented in this encounter Care Teams Vibrator Operator Relationship Specialty Start Date End Date Los Cuevas MD [address] [facility] [address] [place] [address] PCP - General Family Practice 07/02/16 documented as of this encounter
--- OUTSIDE RECORDS SUMMARY | 2025-06-16 04:12 | XMS_ITS | Encounter Summary ---
Author Organization [facility] Address [address] [place] [address] Care Team Providers Care Collector Of Internal Revenue Name Role Phone Los Cuevas MD Primary Care Provider [phone] Encounter Details Date Type Department Care Team (Latest Contact Info) Description 05/18/2002 Outpatient Historical [facility] Family Medicine- [address] [place] [phone] Man Lei, NO ADDRESS ON FILE NONSPECIF SKIN ERUPT NEC (Primary Dx) Social History Tobacco Use Types Packs/Day Years Used Date Smoking Tobacco: Never Assessed Comments Unknown Sex and Gender Information Value Date Recorded Sex Assigned at Not on file Legal Sex Female 4:20 AM OFFLINE EDITOR Gender Identity Not on file Sexual Orientation Not on file documented as of this encounter Plan of Treatment Not on file documented as of this encounter Visit Diagnoses Diagnosis Rash and other nonspecific skin eruption- Primary documented in this encounter Care Teams Collector Of Internal Revenue Relationship Specialty Start Date End Date Los Cuevas MD [address] [facility] [address] [place] [id number] PCP - General Family Practice 07/02/16 documented as of this encounter
--- OUTSIDE RECORDS SUMMARY | 2025-06-16 04:12 | XMS_ITS | Encounter Summary ---
Author Organization [facility] Address [address] [place] [address] Care Team Providers Care Data Administrator Name Role Phone Los Cuevas MD Primary Care Provider [phone] [phone] Encounter Details Date Type Department Care Team (Latest Contact Info) Description 03/26/2005 Outpatient Historical [facility] Family Medicine [place] [address] [address] Hermelindo Garzon NP NO ADDRESS ON FILE ACUTE STRESS REACT NOS (Primary Dx); DEPRESSIVE DISORDER NEC Social History Tobacco Use Types Packs/Day Years Used Date Smoking Tobacco: Never Assessed Comments Unknown Sex and Gender Information Value Date Recorded Sex Assigned at Not on file Legal Sex Female 4:20 AM PROGRAM SERVICES ASSISTANT Gender Identity Not on file Sexual Orientation Not on file documented as of this encounter Plan of Treatment Not on file documented as of this encounter Visit Diagnoses Diagnosis Unspecified acute reaction to stress- Primary Depressive disorder, not elsewhere classified documented in this encounter Care Teams Data Administrator Relationship Specialty Start Date End Date Los Cuevas MD [address] [address] PCP - General Family Practice 07/02/16 documented as of this encounter
--- OUTSIDE RECORDS SUMMARY | 2025-06-16 04:12 | XMS_ITS | Encounter Summary ---
Author Organization [facility] Address [address] [place] [address] Care Team Providers Care Scrum Product Owner Name Role Phone Los Cuevas MD Primary Care Provider [phone] [phone] Encounter Details Date Type Department Care Team (Late st Contact Info) Description 11/06/2007 Outpatient Historical [facility] Family Medicine [address] [address] Hermelindo Garzon NP NO ADDRESS ON FILE Social History Tobacco Use Types Packs/Day Years Used Date Smoking Tobacco: Never Assessed Comments Unknown Sex and Gender Information Value Date Recorded Sex Assigned at Not on file Legal Sex Female 4:20 AM CRM MARKETING MANAGER Gender Identity Not on file Sexual [...] the left medial anterior thigh done at [facility] in [place], [place], on October 15, 2007. Now she has had leakage around the J-P drain, and she did call [facility] and they recommended putting on an Manav [...] Otherwise, she will return p.r.n. Madai Garzon RN-[facility] Man Lei D.O[facility] Electronically Signed by HARITHA Francisco 11/13/2007 16:23 , P, brent Document #: [id number] cc: documented in this encounter Plan of Treatment Not on file documented as of this encounter Visit Diagnoses Not on filedocumented in this encounter Care Teams Scrum Product Owner Relationship Specialty Start Date End Date Los Cuevas MD [address] [phone] PCP - General Family Practice 07/02/16 documented as of this encounter
--- OUTSIDE RECORDS SUMMARY | 2025-06-16 04:12 | XMS_ITS | Encounter Summary ---
Author Organization [facility] Address [address] [place] [address] Care Team Providers Care Convex Grinder Operator Name Role Phone Los Cuevas MD Primary Care Provider +1 -[phone] Encounter Details Date Type Department Care Team (Latest Contact Info) Description 04/30/2006 Outpatient Historical [facility] Family Medicine- [address] [place] [address] Hermelindo Garzon NP NO ADDRESS ON FILE Pain in Joint, Lower Leg (Primary Dx); Allergic Rhinitis, Cause Unspecified Social History Tobacco Use Types Packs/Day Years Used Date Smoking Tobacco: Never Assessed Comments Unknown Sex and Gender Information Value Date Recorded Sex Assigned at Not on file Legal Sex Female 4:20 AM SOLUTION MIXER Gender Identity Not on file Sexual Orientation Not on file documented as of this encounter Plan of Treatment Not on file documented as of this encounter Visit Diagnoses Diagnosis Pain in joint, lower leg- Primary Allergic rhinitis, cause unspecified documented in this encounter Care Teams Convex Grinder Operator Relationship Specialty Start Date End Date Los Cuevas MD [address] [facility] [address] [place] [address] PCP - General Family Practice 07/02/16 documented as of this encounter
--- OUTSIDE RECORDS SUMMARY | 2025-06-16 04:12 | XMS_ITS | Encounter Summary ---
Author Organization [facility] Address [address] [place] [address] Care Team Providers Care Girls Swimming Coach Name Role Phone Los Cuevas MD Primary Care Provider +1 -[phone] Encounter Details Date Type Department Care Team (Latest Contact Info) Description 05/17/2003 Outpatient Historical [facility] VIEW OP Mikayla Stein MD NO ADDRESS ON FILE LOWER LEG INJURY NOS (Primary Dx) Social History Tobacco Use Types Packs/Day Years Used Date Smoking Tobacco: Never Assessed Comments Unknown Sex and Gender Information Value Date Recorded Sex Assigned at Not on file Legal Sex Female 4:20 AM BOND MANAGER Gender Identity Not on file Sexual Orientation Not on file documented as of this encounter Plan of Treatment Not on file documented as of this encounter Visit Diagnoses Diagnosis Injury, other and unspecified, knee, leg, ankle, and foot- Primary documented in this encounter Care Teams Girls Swimming Coach Relationship Specialty Start Date End Date Los Cuevas MD [address] [facility] [address] [place] [address] PCP - General Family Practice 07/02/16 documented as of this encounter
--- OUTSIDE RECORDS SUMMARY | 2025-06-16 04:12 | XMS_ITS | Encounter Summary ---
Author Organization [facility] Address [address] [place] [address] Care Team Providers Care Water Resources Project Manager Name Role Phone Los Cuevas MD Primary Care Provider +1 -[phone] Encounter Details Date Type Department Care Team (Latest Contact Info) Description 11/14/2003 Outpatient Historical [facility] Family Medicine- [address] [place] [address] Mikayla Stein MD NO ADDRESS ON FILE ACUTE SINUSITIS NOS (Primary Dx) Social History Tobacco Use Types Packs/Day Years Used Date Smoking Tobacco: Never Assessed Comments Unknown Sex and Gender Information Value Date Recorded Sex Assigned at Not on file Legal Sex Female 4:20 AM AQUACULTURE DIRECTOR Gender Identity Not on file Sexual Orientation Not on file documented as of this encounter Plan of Treatment Not on file documented as of this encounter Visit Diagnoses Diagnosis Acute sinusitis, unspecified- Primary documented in this encounter Care Teams Water Resources Project Manager Relationship Specialty Start Date End Date Los Cuevas MD [address] [facility] [address] [place] [address] PCP - General Family Practice 07/02/16 documented as of this encounter
--- OUTSIDE RECORDS SUMMARY | 2025-06-16 04:12 | XMS_ITS | Encounter Summary ---
Author Organization [facility] Address [address] [place] [address] Care Team Providers Care Boat Joiner Name Role Phone Los Cuevas MD Primary Care Provider +1 -[phone] Encounter Details Date Type Department Care Team (Latest Contact Info) Description 12/18/1999 Outpatient Historical [facility] Family Medicine [address] [address] Man Lei DO NO ADDRESS ON FILE Depressive disorder, not elsewhere classified (Primary Dx); Unspecified acute reaction to stress Social History Tobacco Use Types Packs/Day Years Used Date Smoking Tobacco: Never Assessed Comments Unknown Sex and Gender Information Value Date Recorded Sex Assigned at Not on file Legal Sex Female 4:20 AM EMPLOYEE OPERATIONS EXAMINER Gender Identity Not on file Sexual Orientation Not on file documented as of this encounter Plan of Treatment Not on file documented as of this encounter Visit Diagnoses Diagnosis Depressive disorder, not elsewhere classified- Primary Unspecified acute reaction to stress documented in this encounter Care Teams Boat Joiner Relationship Specialty Start Date End Date Los Cuevas MD [address] [address] PCP - General Family Practice 07/02/16 documented as of this encounter
--- OUTSIDE RECORDS SUMMARY | 2025-06-16 04:12 | XMS_ITS | Encounter Summary ---
Author Organization [facility] Address [address] [place] [address] Care Team Providers Care Clip Riveter Name Role Phone Los Cuevas MD Primary Care Provider +1 -[phone] Encounter Details Date Type Department Care Team (Latest Contact Info) Description 08/06/1999 Outpatient Historical [facility] Medicine- [address] [address] Man Lei DO NO ADDRESS ON FILE Anxiety state, unspecified (Primary Dx); Pain in joint, ankle and foot; Urinary tract infection, site not specified Social History Tobacco Use Types Packs/Day Years Used Date Smoking Tobacco: Never Assessed Comments Unknown Sex and Gender Information Value Date Recorded Sex Assigned at Not on file Legal Sex Female 4:20 AM TRANSITIONS MANAGER RN Gender Identity Not on file Sexual Orientation Not on file documented as of this encounter Plan of Treatment Not on file documented as of this encounter Visit Diagnoses Diagnosis Anxiety state, unspecified- Primary Pain in joint, ankle and foot Urinary tract infection, site not specified documented in this encounter Care Teams Clip Riveter Relationship Specialty Start Date End Date Los Cuevas MD [address] [address] PCP - General Family Practice 07/02/16 documented as of this encounter
--- OUTSIDE RECORDS SUMMARY | 2025-06-16 04:12 | XMS_ITS | Encounter Summary ---
Author Organization [facility] Address [address] [place] [address] Care Team Providers Care Fireman Name Role Phone Los Cuevas MD Primary Care Provider +1 -[phone] Encounter Details Date Type Department Care Team (Latest Contact Info) Description 06/17/2000 Outpatient Historical [facility] Family Medicine- [address] [place] [address] Man Lei, NO ADDRESS ON FILE Migraine, unspecified, without mention of intractable migraine without mention of status migrainosus (Primary Dx) Social History Tobacco Use Types Packs/Day Years Used Date Smoking Tobacco: Never Assessed Comments Unknown Sex and Gender Information Value Date Recorded Sex Assigned at Not on file Legal Sex Female 4:20 AM RAILROAD COMMISSIONER Gender Identity Not on file Sexual Orientation Not on file documented as of this encounter Plan of Treatment Not on file documented as of this encounter Visit Diagnoses Diagnosis Migraine, unspecified, without mention of intractable migraine without mention of status migrainosus- Primary documented in this encounter Care Teams Fireman Relationship Specialty Start Date End Date Los Cuevas MD [address] [facility] 60 [place] [address] PCP - General Family Practice 07/02/16 documented as of this encounter
--- OUTSIDE RECORDS SUMMARY | 2025-06-16 04:12 | XMS_ITS | Encounter Summary ---
Author Organization [facility] Address [address] [place] [address] Care Team Providers Care System Archive Analyst Name Role Phone Los Cuevas MD Primary Care Provider +1 -[phone] Encounter Details Date Type Department Care Team (Latest Contact Info) Description 06/20/2003 Outpatient Historical [facility] Family Medicine [address] [address] Thompson Soler MD [address] [address] NONINFEC GASTROENTERIT NEC (Primary Dx); ACUTE PHARYNGITIS; LUMBAGO Social History Tobacco Use Types Packs/Day Years Used Date Smoking Tobacco: Never Assessed Comments Unknown Sex and Gender Information Value Date Recorded Sex Assigned at Not on file Legal Sex Female 4:20 AM REFERRAL NURSE Gender Identity Not on file Sexual Orientation Not on file documented as of this encounter Plan of Treatment Not on file documented as of this encounter Visit Diagnoses Diagnosis Other and unspecified noninfectious gastroenteritis and colitis(558.9)- Primary Other and unspecified noninfectious gastroenteritis and colitis Acute pharyngitis Lumbago documented in this encounter Care Teams System Archive Analyst Relationship Specialty Start Date End Date Los Cuevas MD [address] [address] PCP - General Family Practice 9/27/16 documented as of this encounter
--- OUTSIDE RECORDS SUMMARY | 2025-06-16 04:12 | XMS_ITS | Encounter Summary ---
Author Organization [facility] Address [address] [place] [address] Care Team Providers Care Torch Burner Name Role Phone Los Cuevas MD Primary Care Provider +1 -[phone] Encounter Details Date Type Department Care Team (Latest Contact Info) Description 05/04/2003 Outpatient Historical [facility] Family Medicine- [address] [place] [address] Mikayla Stein MD NO ADDRESS ON FILE JOINT PAIN-L/LEG (Primary Dx); LUMBAGO Social History Tobacco Use Types Packs/Day Years Used Date Smoking Tobacco: Never Assessed Comments Unknown Sex and Gender Information Value Date Recorded Sex Assigned at Not on file Legal Sex Female 4:20 AM PEDIATRICS PHYSICIAN Gender Identity Not on file Sexual Orientation Not on file documented as of this encounter Plan of Treatment Not on file documented as of this encounter Visit Diagnoses Diagnosis Pain in joint, lower leg- Primary Lumbago documented in this encounter Care Teams Torch Burner Relationship Specialty Start Date End Date Los Cuevas MD [address] [facility] [address] [place] [address] PCP - General Family Practice 07/02/16 documented as of this encounter
--- OUTSIDE RECORDS SUMMARY | 2025-06-16 04:12 | XMS_ITS | Encounter Summary ---
Author Organization [facility] Address [address] [place] [address] Care Team Providers Care Kiln Setter Name Role Phone Los Cuevas MD Primary Care Provider +1 -[phone] Encounter Details Date Type Department Care Team (Late st Contact Info) Description 08/12/2007 Outpatient Historical [facility] Family Medicine- [address] [place] [address] Hermelindo Garzon NP NO ADDRESS ON FILE Social History Tobacco Use Types Packs/Day Years Used Date Smoking Tobacco: Never Assessed Comments Unknown Sex and Gender Information Value Date Recorded Sex Assigned at Not on file Legal Sex Female 4:20 AM WICKER MOLDED CANDLES Gender Identity Not on file Sexual Orientation Not on file documented as of this encounter Plan of Treatment Not on file documented as of this encounter Visit Diagnoses Not on filedocumented in this encounter Care Teams Kiln Setter Relationship Specialty Start Date End Date Los Cuevas MD [address] [facility] 60 [place] [address] PCP - General Family Practice 07/02/16 documented as of this encounter
--- OUTSIDE RECORDS SUMMARY | 2025-06-16 04:12 | XMS_ITS | Encounter Summary ---
Author Organization [facility] Address [address] [place] [address] Care Team Providers Care Group Captain Name Role Phone Los Cuevas MD Primary Care Provider +1 -[phone] Encounter Details Date Type Department Care Team (Late st Contact Info) Description 08/31/2008 Outpatient Historical [facility] [address] [place] [address] AMBULANCE, [facility] Social History Tobacco Use Types Packs/Day Years Used Date Smoking Tobacco: Never Assessed Comments No Sex and Gender Information Value Date Recorded Sex Assigned at Not on file Legal Sex Female 4:20 AM ASSEMBLER DC FIELD RING Gender Identity Not on file Sexual Orientation Not on file documented as of this encounter Plan of Treatment Not on file documented as of this encounter Visit Diagnoses Not on filedocumented in this encounter Care Teams Group Captain Relationship Specialty Start Date End Date Los Cuevas MD [address] [place] [address] PCP - General Family Practice 07/02/16 documented as of this encounter
--- OUTSIDE RECORDS SUMMARY | 2025-06-16 04:12 | XMS_ITS | Encounter Summary ---
Author Organization [facility] Address [address] [place] [address] Care Team Providers Care Electrical And Instrument Mechanic Name Role Phone Los Cuevas MD Primary Care Provider +1 -[phone] Encounter Details Date Type Department Care Team (Latest Contact Info) Description 12/29/2001 Outpatient Historical [facility] Family Medicine- [address] [place] [address] Man Lei, NO ADDRESS ON FILE FOREIGN BODY GI NOS (Primary Dx) Social History Tobacco Use Types Packs/Day Years Used Date Smoking Tobacco: Never Assessed Comments Unknown Sex and Gender Information Value Date Recorded Sex Assigned at Not on file Legal Sex Female 4:20 AM PUMP HOUSE ENGINEER Gender Identity Not on file Sexual Orientation Not on file documented as of this encounter Plan of Treatment Not on file documented as of this encounter Visit Diagnoses Diagnosis Foreign body in digestive system, unspecified- Primary documented in this encounter Care Teams Electrical And Instrument Mechanic Relationship Specialty Start Date End Date Los Cuevas MD [address] [facility] [address] [place] [address] PCP - General Family Practice 07/02/16 documented as of this encounter
--- OUTSIDE RECORDS SUMMARY | 2025-06-16 04:12 | XMS_ITS | Encounter Summary ---
Author Organization [facility] Address [address] [place] [address] Care Team Providers Care Lottery Sales Clerk Name Role Phone Los Cuevas MD Primary Care Provider +1 -[phone] Encounter Details Date Type Department Care Team (Latest Contact Info) Description 10/02/2001 Outpatient Historical [facility] Family Medicine [address] [phone] Thompson Soler MD [address] [address] ACUTE PHARYNGITIS (Primary Dx); HEADACHE Social History Tobacco Use Types Packs/Day Years Used Date Smoking Tobacco: Never Assessed Comments Unknown Sex and Gender Information Value Date Recorded Sex Assigned at Not on file Legal Sex Female 4:20 AM POLICY ANALYST Gender Identity Not on file Sexual Orientation Not on file documented as of this encounter Plan of Treatment Not on file documented as of this encounter Visit Diagnoses Diagnosis Acute pharyngitis- Primary Headache(784.0) Headache documented in this encounter Care Teams Lottery Sales Clerk Relationship Specialty Start Date End Date Los Cuevas MD [address] [address] PCP - General Family Practice 07/02/16 documented as of this encounter
--- OUTSIDE RECORDS SUMMARY | 2025-06-16 04:12 | XMS_ITS | Encounter Summary ---
Author Organization [facility] Address [address] [place] [address] Care Team Providers Care Lead Quality Technician Name Role Phone Los Cuevas MD Primary Care Provider +1 -[phone] Encounter Details Date Type Department Care Team (Late st Contact Info) Description 08/31/2007 Outpatient Historical [facility] General Surgery [address] [address] [address] [place] [phone] Social History Tobacco Use Types Packs/Day Years Used Date Smoking Tobacco: Never Assessed Comments Unknown Sex and Gender Information Value Date Recorded Sex Assigned at Not on file Legal Sex Female 4:20 AM REAL ESTATE ASSOCIATE ATTORNEY Gender Identity Not on file Sexual Orientation Not on file documented as of this encounter Plan of Treatment Not on file documented as of this encounter Visit Diagnoses Not on filedocumented in this encounter Care Teams Lead Quality Technician Relationship Specialty Start Date End Date Los Cuevas MD [address] [phone] PCP - General Family Practice 07/02/16 documented as of this encounter
--- OUTSIDE RECORDS SUMMARY | 2025-06-16 04:12 | XMS_ITS | Encounter Summary ---
Author Organization [facility] Address [address] [place] [address] Care Team Providers Care Transverse Abdominal Muscle Nurse Name Role Phone Los Cuevas MD Primary Care Provider +1 -[phone] Encounter Details Date Type Department Care Team (Latest Contact Info) Description 07/12/2004 Outpatient Historical [facility] General Surgery [address] [address] [address] [place] [address] [place] [address] [facility] [address] [place] [address] SURGERY FOLLOWUP, UNSPEC (Primary Dx) Social History Tobacco Use Types Packs/Day Years Used Date Smoking Tobacco: Never Assessed Comments Unknown Sex and Gender Information Value Date Recorded Sex Assigned at Not on file Legal Sex Female 4:20 AM SUPERVISOR SLASHING DEPARTMENT Gender Identity Not on file Sexual Orientation Not on file documented as of this encounter Plan of Treatment Not on file documented as of this encounter Visit Diagnoses Diagnosis Follow-up examination, following unspecified surgery- Primary documented in this encounter Care Teams Transverse Abdominal Muscle Nurse Relationship Specialty Start Date End Date Los Cuevas MD [address] [address] PCP - General Family Practice 07/02/16 documented as of this encounter
--- OUTSIDE RECORDS SUMMARY | 2025-06-16 04:12 | XMS_ITS | Encounter Summary ---
Author Organization [facility] Address [address] [place] [address] Care Team Providers Care Head Start Assistant Teacher Name Role Phone Los Cuevas MD Primary Care Provider +1 -[phone] Encounter Details Date Type Department Care Team (Latest Contact Info) Description 11/27/1999 Outpatient Historical [facility] Family Medicine- [address] [place] [address] Man Lei, NO ADDRESS ON FILE Acute upper respiratory infections of unspecified site (Primary Dx); Depressive disorder, not elsewhere classified; Anxiety state, unspecified Social History Tobacco Use Types Packs/Day Years Used Date Smoking Tobacco: Never Assessed Comments Unknown Sex and Gender Information Value Date Recorded Sex Assigned at Not on file Legal Sex Female 4:20 AM TIP CEMENTER Gender Identity Not on file Sexual Orientation Not on file documented as of this encounter Plan of Treatment Not on file documented as of this encounter Visit Diagnoses Diagnosis Acute upper respiratory infections of unspecified site- Primary Depressive disorder, not elsewhere classified Anxiety state, unspecified documented in this encounter Care Teams Head Start Assistant Teacher Relationship Specialty Start Date End Date Los Cuevas MD [address] [address] PCP - General Family Practice 07/02/16 documented as of this encounter
--- OUTSIDE RECORDS SUMMARY | 2025-06-16 04:12 | XMS_ITS | Encounter Summary ---
Author Organization [facility] Address [address] [place] [address] Care Team Providers Care Stitch Bonding Machine Operator Name Role Phone Los Cuevas MD Primary Care Provider +1 -[phone] Encounter Details Date Type Department Care Team (Late st Contact Info) Description 09/09/2007 Outpatient Historical [facility] Family Medicine- [address] [place] [address] Hermelindo Garzon NP NO ADDRESS ON FILE Social History Tobacco Use Types Packs/Day Years Used Date Smoking Tobacco: Never Assessed Comments Unknown Sex and Gender Information Value Date Recorded Sex Assigned at Not on file Legal Sex Female 4:20 AM WOOD SAWYER Gender Identity Not on file Sexual Orientation Not on file documented as of this encounter Plan of Treatment Not on file documented as of this encounter Visit Diagnoses Not on filedocumented in this encounter Care Teams Stitch Bonding Machine Operator Relationship Specialty Start Date End Date Los Cuevas MD [address] [facility] [address] [place] [address] PCP - General Family Practice 07/02/16 documented as of this encounter
--- OUTSIDE RECORDS SUMMARY | 2025-06-16 04:12 | XMS_ITS | Encounter Summary ---
Author Organization [facility] Address [address] [place] [address] Care Team Providers Care Commercial Credit Reviewer Name Role Phone Los Cuevas MD Primary Care Provider +1 -[phone] Encounter Details Date Type Department Care Team (Latest Contact Info) Description 12/31/2001 Outpatient Historical [facility] Family Medicine [address] [address] Blayne Caba MD ABDOMINAL PAIN EPIGASTRIC (Primary Dx) Social History Tobacco Use Types Packs/Day Years Used Date Smoking Tobacco: Never Assessed Comments Unknown Sex and Gender Information Value Date Recorded Sex Assigned at Not on file Legal Sex Female 4:20 AM TICKET WRITER Gender Identity Not on file Sexual Orientation Not on file documented as of this encounter Plan of Treatment Not on file documented as of this encounter Visit Diagnoses Diagnosis Abdominal pain, epigastric- Primary documented in this encounter Care Teams Commercial Credit Reviewer Relationship Specialty Start Date End Date Los Cuevas MD [address] [phone] PCP - General Family Practice 07/02/16 documented as of this encounter
--- OUTSIDE RECORDS SUMMARY | 2025-06-16 04:12 | XMS_ITS | Encounter Summary ---
Author Organization [facility] Address [address] [place] [address] Care Team Providers Care Piano Tuner Name Role Phone Los Cuevas MD Primary Care Provider +1 -[phone] Encounter Details Date Type Department Care Team (Late st Contact Info) Description 08/31/2007 Outpatient Historical [facility] [address] [place] [address] Jair Gutierrez, NO ADDRESS ON FILE Social History Tobacco Use Types Packs/Day Years Used Date Smoking Tobacco: Never Assessed Comments Unknown Sex and Gender Information Value Date Recorded Sex Assigned at Not on file Legal Sex Female 4:20 AM REAL ESTATE INVESTOR Gender Identity Not on file Sexual Orientation Not on file documented as of this encounter Plan of Treatment Not on file documented as of this encounter Visit Diagnoses Not on filedocumented in this encounter Care Teams Piano Tuner Relationship Specialty Start Date End Date Los Cuevas MD [address] [address] PCP - General Family Practice 07/02/16 documented as of this encounter
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
--- OUTSIDE RECORDS SUMMARY | 2025-06-16 04:12 | XMS_ITS | Encounter Summary ---
Author Organization [facility] Address [address] [place] [address] Care Team Providers Care Homemaker Companion Name Role Phone Los Cuevas MD Primary Care Provider +1 [phone] Encounter Details Date Type Department Care Team (Latest Contact Info) Description 11/18/2003 Outpatient Historical [facility] Family Medicine- [place] [address] [place] [address] Mikayla Stein MD NO ADDRESS ON FILE URIN TRACT INFECTION NOS (Primary Dx); ACUTE SINUSITIS NOS Social History Tobacco Use Types Packs/Day Years Used Date Smoking Tobacco: Never Assessed Comments Unknown Sex and Gender Information Value Date Recorded Sex Assigned at Not on file Legal Sex Female 4:20 AM GRAPE PICKER Gender Identity Not on file Sexual Orientation Not on file documented as of this encounter Plan of Treatment Not on file documented as of this encounter Visit Diagnoses Diagnosis Urinary tract infection, site not specified- Primary Acute sinusitis, unspecified documented in this encounter Care Teams Homemaker Companion Relationship Specialty Start Date End Date Los Cuevas MD [address] [facility] [address] [place] [address] PCP - General Family Practice 07/02/16 documented as of this encounter
--- OUTSIDE RECORDS SUMMARY | 2025-06-16 04:12 | XMS_ITS | Encounter Summary ---
Author Organization [facility] Address [address] [place] [address] Care Team Providers Care Natural Resource Manager Name Role Phone Los Cuevas MD Primary Care Provider [phone] [phone] Encounter Details Date Type Department Care Team (Latest Contact Info) Description 07/02/2004 Outpatient Historical [facility] General Surgery [address] [address] [address] [place] [address] [place] [address] [facility] [address] [place] [id number] UNCERTAIN BEHAV NEOPL SKIN (Primary Dx) Social History Tobacco Use Types Packs/Day Years Used Date Smoking Tobacco: Never Assessed Comments Unknown Sex and Gender Information Value Date Recorded Sex Assigned at Not on file 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
--- OUTSIDE RECORDS SUMMARY | 2025-06-16 04:12 | XMS_ITS | Encounter Summary ---
Author Organization [facility] Address [address] [place] [address] Care Team Providers Care Assistant To The Dean Name Role Phone Los Cuevas MD Primary Care Provider [phone] [phone] Encounter Details Date Type Department Care Team (Latest Contact Info) Description 08/12/2007 Outpatient Historical [facility] Family Medicine- [place] [address] [place] [address] Hermelindo Garzon NP NO ADDRESS ON FILE Unspecified Vaginitis and Vulvovaginitis (Primary Dx); Excessive Menstruation; Metrorrhagia; Sebaceous Cyst Social History Tobacco Use Types Packs/Day Years Used Date Smoking Tobacco: Never Assessed Comments Unknown Sex and Gender Information Value Date Recorded Sex Assigned at Not on file 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
--- OUTSIDE RECORDS SUMMARY | 2025-06-16 04:12 | XMS_ITS | Encounter Summary ---
Author Organization [facility] Address [address] [place] [address] Care Team Providers Care Youth Court Judge Name Role Phone Los Cuevas MD Primary Care Provider [phone] [phone] Encounter Details Date Type Department Care Team (Latest Contact Info) Description 10/09/2001 Outpatient Historical [facility] Family Medicine- [place] [place] [address] [place] [address] Mikayla Stein MD NO ADDRESS ON FILE ALLERGIC RHINITIS NOS (Primary Dx); TENSION HEADACHE Social History Tobacco Use Types Packs/Day Years Used Date Smoking Tobacco: Never Assessed Comments Unknown Sex and Gender Information Value Date Recorded Sex Assigned at Not on file 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
--- OUTSIDE RECORDS SUMMARY | 2025-06-16 04:12 | XMS_ITS | Encounter Summary ---
Author Organization [facility] Address [address] [place] [address] Care Team Providers Care Runner Worker Name Role Phone Los Cuevas MD Primary Care Provider [phone] [phone] Encounter Details Date Type Department Care Team (Latest Contact Info) Description 05/25/2002 Outpatient Historical [facility] Family Medicine- [place] [place] [address] [place], NO ADDRESS ON FILE ADJ REACT-ANXIOUS MOOD (Primary Dx); NONSPECIF SKIN ERUPT NEC Social History Tobacco Use Types Packs/Day Years Used Date Smoking Tobacco: Never Assessed Comments Unknown Sex and Gender Information Value Date Recorded Sex Assigned at Not on file 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
--- OUTSIDE RECORDS SUMMARY | 2025-06-16 04:13 | XMS_ITS ---
Author Name Interface, [id number] [address] Organization [facility] [place] [address] Allergies and Adverse Reactions Medication/Group Name Reaction [...] Visit (15 Min) 05/31/[address] 1 05/31/2025 LABORDER MRI thoracic spi ne w/ & w/o contrast 05/31/2025 LABORDER MRI lumbar spine w/ & w/o contrast 05/31/2025 LABORDER CBC w/ auto diff 05/31/2025 LABORDER CMP 05/31/2025 LABORDER Bone scan, total body 05/31/2025 LABORDER MRI sacrum 06/17/2025 LABORDER CBC w/ auto diff 06/17/2025 LABORDER CMP Reason for Visit Chemo C4D1 Nivolumab + Cabozantinib Q14D Encounters Date Name 05/31/2025 Renal cell carcinoma Diagnostic Results Date Type Test Units Lower Limit Upper Limit Result Flag Comments Status Ordered By Specimen Source Lab Address 05/31 Gluco se mg/dL 65.0 99.0 93 Fasting reference interval FINAL [facility], [id number] 05/31 BUN mg/dL 7.0 25.0 14 FINAL [facility], [id number] 05/31 Creat inine mg/dL 0.5 1.03 0.62 FINAL [facility], [id number] 0 05/31 EGFR mL/min /1.73m 2 103 FINAL [facility], [id number] 0 05/31 BUN/C reati nine ratio (calc) 6.0 22.0 SEE NOTE: Not Reported: BUN and Creatinin e are within reference range. FINAL [place] [facility], [id number] 0 05/31 Sodiu m mmol/L 135.0 146.0 139 FINAL [facility], [id number] 0 05/31 Potas sium mmol/L 3.5 5.3 3.9 FINAL [facility], [id number] 0 05/31 Chlor gian mmol/L 98.0 110.0 106 FINAL [facility], [id number] 0 05/31 CO2 mmol/L 20.0 32.0 26 FINAL [facility], [id number] 0 05/31 Calci um mg/dL 8.6 10.4 8.4 Low FINAL [facility], [id number] 0 05/31 Total prote in g/dL 6.1 8.1 6.3 FINAL [facility], [id number] 0 05/31 Album in g/dL 3.6 5.1 3.7 FINAL [facility], [id number] 0 05/31 Globu jarad g/dL(c alc) 1.9 3.7 2.6 FINAL [facility], [id number] 0 05/31 A/G ratio (calc) 1.0 2.5 1.4 FINAL [facility], [id number] 0 05/31 Bilir ubin, total mg/dL 0.2 1.2 0.4 FINAL [facility], [id number] 0 05/31 Alkal ine phosp hatas e U/L 37.0 153.0 80 FINAL [facility], [id number] 0 05/31 AST/S GOT U/L 10.0 35.0 11 FINAL [facility], [id number] 0 05/31 ALT/S GPT U/L 6.0 29.0 9 FINAL [facility], [id number] 0 05/31 CBC WBC 10^3/u l 4.5 13.0 5.4 FINAL Philip Luly chino [facility], [address] [facility] [id number] Anisa Castilloarian 05/31 CBC RBC 10^6/u l 3.8 5.1 4.15 FINAL Philip Luly [facility]ino [facility], [address] [facility] [id number] Anisa Makarian 05/31 CBC HGB g/dl 11.5 15.3 12.4 FINAL Philip Luly [facility]ino [facility], [address] [facility] [id number] 0 Anisa Makrianna 05/31 CBC HCT % 34.0 46.0 39.7 FINAL Philip Luly chino [facility], [address] [facility] [id number] 0 Anisa Makrianna 05/31 CBC MCV fl 78.0 98.0 95.7 FINAL Philip Luly [facility], [address] [place] [id number] 0 Anisa Makarian 05/31 CBC MCH pg 25.0 35.0 29.9 FINAL Philip L[facility], [address] [place] [id number] 0 Anisa Makarian 05/31 CBC MCHC g/dl 31.0 36.0 31.2 FINAL Philip L[facility], [address] [place] [id number] 0 Anisa Makarian 05/31 CBC RDW % 11.0 15.0 14.9 FINAL Philip [facility], [address] [place] [id number] 0 Anisa Makarian 05/31 CBC PLT 10^3/u l 140.0 400.0 95 Low sample checked for clot, Verified by repeat analysis FINAL Philip Luly [facility], [address] [place] [id number] 0 Anisa Makarian 05/31 CBC MPV fl 7.5 12.5 11.9 FINAL Philip L[facility], [address] [place] [id number] 0 Anisa Makarian 05/31 CBC Glenn % % 40.0 77.0 58.20 FINAL Philip Luly [facility], [address] [place] [id number] 0 Anisa Makarian 05/31 CBC LY % % 15.0 41.0 13.8 Low FINAL Philip Luly [facility], [address] [place] [id number] 0 Anisa Makarian 05/31 CBC MO % % 0.0 9.0 8.4 FINAL Philip L[facility], [address] [place] [id number] 0 Anisa Makarian 05/31 CBC EO % % 0.0 3.0 19.2 High FINAL Philip Lluy [facility], [address] [place] [id number] 0 Anisa Makarian 05/31 CBC BA % % 0.0 1.0 0.4 FINAL Philip Luly [facility], [address] [place] [id number] 0 Anisa Makarian 05/31 CBC Glenn # (ANC) 10^3/u l 1.8 8.0 3.1 FINAL Philip Luly chino [facility], [address] [place] [id number] 0 Anisa Meyers 05/31 CBC LY # 10^3/u l 1.2 5.2 0.7 Low FINAL Philip Luly chino [facility], [address] [place] [id number] 0 Anisa Meyers 05/31 CBC MO # 10^3/u l 0.2 0.9 0.5 FINAL Philip Luly chino [facility], [address] [place] [id number] 0 Anisa Meyers 05/31 CBC EO # 10^3/u l 0.0 0.5 1.0 High FINAL Philip Luly chino [facility], [address] [place] [id number] 0 Anisa Meyers 05/31 CBC BA # 10^3/u l 0.0 0.2 0.0 FINAL [facility], [address] [facility] [id number] 0 Anisa Meyers Medications Date Name Route Dose Frequency Instructions Start Date End Date Status Fill Status Indication 04/19 Nicotin e Transde rmal Patch 21 mg/24 hr transde rmally 1.0 patch 24 hour daily active 04/19 Acetami nophen Oral orally 1.0 tablet every 6 hours as needed active 04/19 Pantopr azole (Sodium ) Oral Delayed Release orally 40.0 mg daily active 04/19 Sennosi king-Doc usate Sodium Oral 8.6 mg-50 mg orally 2.0 capsul e two times per day as needed active 04/19 Hydroco done-Ac etamino phen Oral 7.5 mg-325 mg orally 1.0 tablet every 6 hours as needed active 04/19 Polyeth ylene Glycol [...] e sodium 50 MG / sennosi king, SN[facility] 8.6 MG Oral Tablet orally 2.0 tablet [...] carcinoma Active Vital Signs Date Type Value 05/31/2025 Body Temperature 99.10 05/31/2025 Heart Beat 92.00 05/31/2025 Respiratory Rate 18.00 05/31/2025 Oxygen Saturation 92.00 05/31/2025 BSA 1.78 05/31/2025 Pain Scale 6.00 05/31/2025 Weight 156.70 05/31/2025 Height 65.00 05/31/2025 BMI 26.08 05/31/2025 Intravascular Systolic 120 05/31/2025 Intravascular Diastolic 79 Notes Section * PROGRESS NOTE (Amended) ?? Date of Service: 05/31/2025 Patient Name: Caroline [place] : 1965 Age: 59 Referring Physician: ? Attending Provider: Jacob Dominique MD Progress Note CHIEF COMPLAINT 1. ??Metastatic RCC ???Presented to the hospital with bilateral lower abdominal pain as well as chronic low back pain. 04/12/2025 CT CAP shows??right renal masses, multifocal??lytic destructive lesions involving L5 and sacrum,??metastatic involvement of??pelvic musculature. ??Incidental??moderate right hydronephrosis??with enhancing appearance of the right ureteral wall??and thickened irregular enhancing appearance of the urinary bladder.?? Small bilateral noncalcified pulmonary nodules. 04/13/2025??sacral mass CT-guided biopsy shows metastatic renal cell carcinoma 04/29/25: C1D1 [place] (Cabozantinib dose reduced to 20 mg to ensure so she can tolerate it) INTERVAL HISTORY Patient is overall doing okay today. She did have some mucousy blood in her stool. This has been an isolated complaint. She otherwise denies any significant complaints PAST MEDICAL HISTORY * Renal cell carcinoma ( Stage Date: Unknown, Stage IV ) * Anemia * Bone metastasis * Long-term current use of drug therapy MEDICATIONS * Cabozantinib Oral (Cabometyx) 20 mg tablet 20 mg orally daily. Take on an empty stomach, 1 hr before or 2 hrs after food. * Ondansetron Oral 8 mg tablet 1 tablet orally every 8 hours as needed for nausea and vomiting. * Acetaminophen Oral 500 mg capsule 1 capsule orally every 6 hours as needed for pain. * Hydrocodone-Acetaminophen Oral 7.5 mg-325 mg 7.5-325 mg tablet 1 tablet orally every 6 hours as needed * Tylenol (Acetaminophen Oral) 500 mg tablet 1 tablet orally every 6 hours as needed * Prochlorperazine Oral 10 mg tablet 1 tablet orally every 6 hours as needed for nausea and vomiting. * Olanzapine Oral 5 mg tablet 1 tablet orally every day at bedtime. * Ondansetron Oral Disintegrating Tablet 4 mg tablet,disintegrating 1 tablet,disintegrating orally every 8 hours as needed * Clobetasol Topical Cream 0.05 % 0.05 % cream 1 application topically 2 times per day. Apply cream to affected area (Hands/Feet). DO NOT APPYL TO FACE. * Pantoprazole (Sodium) Oral Delayed Release 40 mg tablet,delayed release (DR/EC) 1 tablet,delayed release (DR/EC) orally daily. * Sennosides-Docusate Sodium Oral 8.6 mg-50 mg 8.6-50 mg capsule 2 capsule orally two times per day as needed * Oxycodone Oral 5 mg tablet 1 tablet orally every 4 to 6 hours as needed for pain. * Sennosides-Docusate Sodium Oral 8.6 mg-50 mg 8.6-50 mg tablet 2 tablet orally 2 times per day as needed for constipation. * Nicotine Transdermal Patch 21 mg/24 hr 21 mg/24 hr patch 24 hour 1 patch transdermally every 24 hours. * Miralax (Polyethylene Glycol Oral Powder) 17 gram powder in packet 17 gram orally daily * Nicotine Transdermal Patch 21 mg/24 hr 21 mg/24 hr patch 24 hour 1 patch 24 hour transdermally daily * Pantoprazole (Sodium) Oral Delayed Release 40 mg tablet,delayed release (DR/EC) 40 mg orally daily ALLERGY Bee sting, Hepatitis B Vaccines, hepatitis A virus vaccine and magnesium SOCIAL HISTORY FAMILY HISTORY MEDICAL HISTORY Father: - Coronary artery disease, Diabetes; Mother: - Cervix cancer, Coronary artery disease, Lung cancer REVIEW OF SYSTEMS: Was reviewed from patient information sheet. Please refer to HPI for pertinent positives and negatives. PHYSICAL EXAM Blood pressure: 120/79, R arm, Pulse: 92, Temperature: 99.1 F, Respirations: 18, O2 sat: 92%, Pain Scale: 6, Height: 65 in, Weight: 156.7 lb, BSA: 1.78, BMI: 26.08 kg/m2 Performance Status: ECO GENERAL?? Well appearing, in no acute distress. ?? SKIN:??No rashes, nodules.?? LYMPH NODES:??No cervical, supraclavicular, axillary nor inguinal adenopathy,?? LUNGS:?Clear to auscultation.?? HEART:?Regular rate and rhythm.??No murmurs, rubs, or gallops. ABDOMEN:?? No hepatosplenomegaly, masses or tenderness. NEUROLOGIC:??Mental status normal. LABS: Lab Results 05/31/2025 05/13/2025 04/29/2025 CBC WBC x 10^3/uL 5.4 6.7 8.3 RBC x 10^6/uL 4.15 3.85 3.35 (L) HGB g/dL 12.4 11.4 (L) 9.9 (L) HCT % 39.7 36.6 32.2 (L) MCV fL 95.7 95.1 96.1 MCH pg 29.9 29.6 29.6 MCHC g/dL 31.2 31.1 30.7 (L) RDW % 14.9 14.2 13.6 PLT x 10^3/uL 95 (L) 213 378 MPV fL 11.9 8.1 7.8 Glenn % 58.20 73.70 60.20 LY % 13.8 (L) 15.7 23.7 MO % 8.4 6.3 9.4 (H) EO % 19.2 (H) 4.0 (H) 6.3 (H) Glenn # (ANC) x 10^3/uL 3.1 4.9 5.0 BA % 0.4 0.3 0.4 MO # x 10^3/uL 0.5 0.4 0.8 EO # x 10^3/uL 1.0 (H) 0.3 0.5 BA # x 10^3/uL 0.0 0.0 0.0 LY # x 10^3/uL 0.7 (L) 1.1 (L) 2.0 Lab Results 05/31/2025 05/13/2025 04/29/2025 Chemistries Glucose mg/dL 101 (H) 79 BUN mg/dL 15 13 Creatinine mg/dL 0.75 0.81 BUN/Creatinine ratio SEE NOTE: SEE NOTE: Sodium mmol/L 138 135 Potassium mmol/L 3.7 4.4 Chloride mmol/L 106 103 CO2 mmol/L 25 26 Calcium mg/dL 8.2 (L) 8.6 Albumin g/dL 3.5 (L) 3.5 (L) Total protein g/dL 5.9 (L) 6.5 Globulin g/dL 2.4 3.0 A/G ratio 1.5 1.2 Bilirubin, total mg/dL 0.4 0.3 Alkaline phosphatase U/L 87 134 AST/SGOT U/L 17 14 ALT/SGPT U/L 9 9 ?. ? ASSESSMENT AND PLAN 1. Metastatic RCC, IMDC to (intermediate, overall survival 23 months) ?- (multiple right renal masses, multifocal lytic destructive lesions involving L5 and the sacrum, asymmetric enlargement of left posterior pelvic musculature, possibly representing metastatic involvement, enhancing appearance of the right ureteral wall and thickened enhanced appearance of urinary bladder (cystitis versus infection), small bilateral noncalcified pulmonary nodules 2. History of left-sided RCC??(s/p??left-sided nephrectomy) 3. History of melanoma??(diagnosed and treated by Dr. Nirmal Ash in 2006), patient lost to follow-up 4. Bilateral lower extrmeity numbness Patient is a pleasant 59-year-old female who presented with bilateral lower abdominal pain as well as chronic low back pain. Patient been taking a large amount of ibuprofen and Tylenol daily. CT imaging at outside hospital showed right-sided hydronephrosis with obstruction of distal right ureter just above the urinary bladder. Has a history of left-sided nephrectomy due to renal cell carcinoma. She also has a history of metastatic [facility] [address] [facility] was unfortunately lost to follow-up. On admission she was seen by urology She was seen by urology given gross hematuria as well as right-sided hydronephrosis. No intervention deemed necessary given normal kidney function over solitary kidney. Of note??patient's pathology was noted as renal cell carcinoma. 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 They will add addendum??to patient's pathology report today Nivolumab + cabozantinib started on 04/29/25 as initial upfront therapy.?Plan to monitor closely??for??HTN, electrolyte abnormalities,??hypothyroidism Will also send her??to radiation oncology for consideration of palliative radiation??to destructivesacral mass. ??This was discussed with radiation oncology. She does have some??neurologic deficits related to this (primarily numbness extending bilaterally through the legs). ??This is chronic in nature??ongoing > 6-12 months per patient. 05/31/2025 Metastatic RCC, IMDC to (intermediate, overall survival 23 months) ?C1 D1 cabozantinib/nivolumab start date 04/29/25 ?Dose reduced cabozantinib to 20 mg??daily (from 40-60 mg daily). ??Can uptitrate if patient tolerates ??? Next CT CAP due 06/30/2025 ??? Bone scan ordered for initial staging as well as to further characterized disease in spine -- Follow up in 2 weeks for C2, will eventually transition to q 4 weeks as patient has a [address] to get here for treatments -- Continue to monitor for toxicity check while on oral therapy, carbozantinib ??? Patient started to hold cabozantinib given grade 3 thrombocytopenia and some bloody mucus stool. ??? Follow-up in 2 weeks for nivolumab + check for stabilization of plt count. ??Can restart cabozantinib at 20 mg p.o. daily if plt have recovered and patient is no longer having bloody stool. ??Will discuss colonoscopy at follow-up as well. ??? Patient to get MRI spine + bone scan for completion of initial staging today [facility]: [facility] chairfollow-up. Bloody stool ??? This may be in part related to Cabometyx as hemorrhagic events have been noted. ??May impart berelated to thrombocytopenia (also thought to be secondary to Cabometyx). ??? May also very well be related to radiation proctitis related to recent palliative radiation ??? Hgb is stable. ??? Discuss colonoscopy at follow-up??if this persists Bulky destructive lytic lesion in the sacrum Intractable pain ?Referral to radiation oncology for consideration of??palliative radiation ?Oxycodone 5 mg every 4 hours as needed, Tylenol??as needed??500 mg every 6 hours ??? MRI thoracic/lumbar/sacrum ordered. Hopefully this can be done in the next few weeks. This willserve as a baseline to assess future disease.Plan???MRI and bone scan scheduled for 05/31/2025 Ongoing nausea ??? It should be noted that her nausea preceded cabozantinib. ??Therefore I think we can increase this in the future. ??? 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 Clobetasol topical cream 0.05 to affected areas, hydrating cream Supportive Measures: Acid reflux ??? Pantoprazole Nausea/vomiting ?Zofran ordered CBC, CMP reviewed. ORDERS NOTE: Performance Dates are approximate * 05/31/2025, CBC w/ auto diff, Perform Date: 06/17/2025 * 05/31/2025, CMP, Perform Date: 06/17/2025 ? * 05/31/2025, RTC chemo, Instructions: nivo, Perform Date: 06/17/2025 Jacob Dominique MD CC: [place] MD Electronically signed by Jacob Dominique MD 06/03/2025 14:50 CDT * Nurse Note for: 31-MAY-25 [facility] Nurse Note Print Location: Unknown Date/Time Printed: 06/16/2025 04:12 ([facility]) Patient: Caroline Whitney Sex: Female : 1965 [...] Comments-IV left in for bone scan at [place] Entered By Sindhu Gomez RN on 09:27 Discharge Note : Comments-Therapy completed without adverse event, Discharged from clinic, Stable, No new complaints, Plan for next patient visit confirmed, Accompanied By-Family, Discharge-Via Wheelchair, Discharge Time-05/31/2025 08:58 Entered By Sindhu Gomez RN on 09:27 Medication Administration : Incident to: Niraj Nolasco [...] mg Amount in mL: 24 Pharmacy dispense: [facility]: [id number] Dispense/Waste: 240/0 mg Given Dose/Discard: 240/0 mg Admin Details: Comments: checked with Tammy Santiago Start Time: 08:24, Entered By: Sindhu Gomez RN, Stop Time: 08:54, Entered By: Sindhu Gomez RN Admix Fluid: 0.9 % sodium chloride, Admix Fluid Volume: 50mL, Total Volume: 79mL
--- OUTSIDE RECORDS SUMMARY | 2025-06-16 04:13 | XMS_ITS | Clinical Summary ---
Author Organization [facility] Address [address] [facility] Attn: Epic Prelude ADT BEBETO WARREN [address] Care Team Providers Care Professor Of Religion Name Role Phone Los Cuevas MD Primary Care Provider [phone] Allergies Active Allergy Reactions Criticality Noted Date Comments Allergen Plk-Zsokq-Hhgdg Bee Unknown Hepatitis B Virus Vaccine Unknown Magnesium Sulfate (Bulk) Rash Low 12/25/2009 Soap Unknown Skin sensitive to soap Medications acetaminophen (TYLENOL ARTHRITIS) 650 mg Extended Release tablet Take 1,300 mg by mouth every 6 hours as needed for Pain. 0 Active ibuprofen (MOTRIN) 400 mg tablet Take 400 mg by mouth every 6 hours as needed for Pain, Mild. Active gabapentin (NEURONTIN) 600 mg tablet Take 600 mg by mouth. Active nicotine (NICODERM CQ) 21 mg/24 hr patchIndications: Cigarette nicotine dependence without complication Apply 1 Patch to skin as directed every 24 hours. 28 Patch 5 Active Active Problems Problem Noted Date Diagnosed [...] 03/31/20092012 Overview (01/31/2021): 08/13, 11/14, Treated at [facility] Breast CA Screening 03/31/2009 12/21/19 17 Overview (01/31/2021): Mammo: 06/16 (at [facility]) Melanoma of Skin, L leg (2008) 06/21/2013 Overview (01/31/2021): Treated at [place], [place] S/P Surgical excision, radiation therapy Followed by Dr. Osborne Encounters Date Type Department Care Team Description 06/09/2025 Abstract [facility] Family Medicine [address] [address] Provider, Abstract 06/08/2025 External Device Data [facility] ABSTRACTION Provider, Abstract 06/01/2025 External Device Data [facility] ABSTRACTION Provider, Abstract 05/31/2025 External Device Data [facility] ABSTRACTION Provider, Abstract 05/31/2025 Orders Only [facility] Health Information Management [place] [address] [place] [address] Provider, Abstract 05/13/[address] [facility] [address] [place] [address] Provider, Abstract 05/03/2025 External Device Data [facility] ABSTRACTION Provider, Abstract 05/03/2025 External Device Data [facility] ABSTRACTION Provider, Abstract 05/03/2025 External Device Data [facility] ABSTRACTION Provider, Abstract 04/26/[address] [facility] [place] [place] [address] Flower Parker FNP Cigarette nicotine dependence without complication (Primary Dx) 04/25/[address] [place] [address] Flower Parker FNP Medication Authorization 04/25/[address] [facility] [address] [place] [address] Flower Parker FNP Needs Form Or Letter Filled Out 04/25/[address] [facility] [address] [place] [address] Flower Parker FNP 04/14/[address] [address] Los Cuevas MD Information 04/12/2025 External Device Data [facility] ABSTRACTION Provider, Abstract 04/12/2025 External Device Data [facility] ABSTRACTION Provider, Abstract 04/12/2025 External Device Data [facility] ABSTRACTION Provider, Abstract 04/11/2025 9:20 AM CDT Office Visit [address] [place] [address] Flower Parker FNP Left lower quadrant abdominal pain (Primary Dx); Abdominal pain, RLQ; BRBPR (bright red blood per rectum); Acute cystitis with hematuria; Screening mammogram, encounter for 04/06/[address] [facility] [address] [facility] [address] [place] [phone] Los Cuevas MD Hospital Follow Up; Information 04/03/2025 Results Follow-Up [facility] Emergency Medicine [address] [facility] [address] [place] [phone] Raad Kendall RN URINE CULTURE 04/01/2025 5:15 PM CDT - 04/01/2025 8:04 PM CDT Emergency [facility] Medicine [address] [facility] [address] [place] [phone] Mackenzie Cedillo MD Starnes, Tito Yoon MD [...] on file Legal Sex Female 1:15 AM [employer]ER/[employer] Gender Identity Not on file Sexual Orientation [...] VACCINE (1 of 2) 2016 [place] Preventative Visit/Annual Wellness Visit 10/06/2024 INFLUENZA VACCINE (#1) 2025 7, 10/08/2016, 07/08/2013, Additional history exists Procedures Procedure Name Priority Date/Time Associated Diagnosis Comments COMPREHENSIVE METABOLIC PANEL Routine 05/13/2025 10:26 AM CDT COMPREHENSIVE METABOLIC PANEL Routine 04/29/2025 1:04 PM CDT URINALYSIS MICROSCOPY ONLY Stat 04/01/2025 7:05 PM [...] Recently Relevant to Health Maintenance Results * COMPREHENSIVE METABOLIC PANEL (05/13/2025 10:26 AM CDT) Only the most recent of3 resultswithin the time period is included. Blood us Abstract Provider CHEMISTRY ORDERABLES Final Res ult * (ABNORMAL) URINALYSIS MICROSCOPY ONLY (04/01/2025 7:05 PM CDT) WBC UA >100(A) 0 - 2 /hpf 04/01/2025 7:18 PM CDT [facility] RBC UA 11-25(A) 0 - 2 /hpf 04/01/2025 7:18 PM CDT [facility] BACTERIA UA 4+(A) Negative /hpf 04/01/2025 7:18 PM CDT [facility] EPITHELIAL CELLS, URINE 0-5 0 - 5 /hpf 04/01/2025 7:18 PM CDT [facility] Urine URINE SPECIMEN OBTAINED BY CLEAN CATCH PROCEDURE / Unknown Collection / Unknown 04/01/2025 7:05 PM CDT 04/01/2025 7:11 PM CDT Mackenzie Cedillo MD URINE ORDERABLES Final Result [facility] CLIA # [id number] [address] [place] [address] [phone] * (ABNORMAL) URINALYSIS WITH REFLEX MICROSCOPIC (04/01/2025 7:05 PM CDT) COLOR UA Yellow Pale to Dark Yellow 04/01/2025 7:18 PM T [facility] CLARITY UA Turbid(A) Clear 04/01/2025 7:18 PM T [facility] SPECIFIC GRAVITY UA 1.025 1.003 - 1.035 04/01/2025 7:18 PM T [facility] PH UA 7.0 5.0 - 8.0 04/01/2025 7:18 PM [facility] LEUKOCYTE ESTERASE UA 3+(A) Negative 04/01/2025 7:18 PM T [facility] NITRITE UA Positive(A) Negative 04/01/2025 7:18 PM T [facility] PROTEIN UA 3+(A) Negative 04/01/2025 7:18 PM T [facility] GLUCOSE UA Negative Negative 04/01/2025 7:18 PM [facility] KETONES UA 1+(A) Negative 04/01/2025 7:18 PM [facility] UROBILINOGEN UA 1.0 <2.0 mg/dL 7:18 PM CDT [facility] BILIRUBIN UA 1+(A) Negative 04/01/2025 7:18 PM CDT [facility] BLOOD UA 3+(A) Negative 04/01/2025 7:18 PM CDT [facility] Urine URINE SPECIMEN OBTAINED BY CLEAN CATCH PROCEDURE / Unknown Collection / Unknown 04/01/2025 7:05 PM CDT 04/01/2025 7:11 PM CDT Mackenzie Cedillo MD URINE ORDERABLES Final Result [facility] CLIA # [id number] [address] [place] [address] [phone] * (ABNORMAL) URINE CULTURE (04/01/2025 7:05 PM CDT) CULTURE ESCHERICHIA COLI(A) MINE MCG/ML 04/04/2025 8:38 AM CDT [facility] Urine URINE SPECIMEN OBTAINED BY CLEAN [...] with an infectious diseases specialist is recommended. Mackenzie Cedillo MD MICROBIOLOGY - GENERAL ORDERABL ES Final Result Performing Organization Address [facility]/ZIP Co de Phone Number [facility] CLIA # [id number] [address] [place] [address] * OCCULT BLOOD GUAIAC SCREEN, 1-3 CARDS (04/01/2025 5:58 PM CDT) Pathologist [facility] OCCULT BLOOD, # OF SPECIMENS TESTED 1 04/01/2025 6:07 PM CDT [facility] OCCULT BLOOD #1 Negative Negative 04/01/2025 6:07 PM CDT [facility] Stool STOOL SPECIMEN / Unknown 04/01/2025 5:58 PM CDT 04/01/2025 6:03 PM CDT Mackenzie Cedillo MD BODY FLUIDS AND STOOLS Final Re sult Performing Organization Address City/[facility]/ZIP Co de Phone Number [facility] CLIA # [id number] [address] [place] [address] * (ABNORMAL) CBC WITH DIFFERENTIAL (04/01/2025 5:49 PM CDT) WBC 10.2(H) 4.0 - 10.0 K/uL 04/01/2025 6:06 PM CDT [facility] RBC 4.15 3.93 - 5.22 M/uL 04/01/2025 6:06 PM CDT [facility] HEMOGLOBIN 12.5 11.2 - 15.7 g/dL 04/01/2025 6:06 PM CDT [facility] HEMATOCRIT 37.3 34.1 - 44.9 % 04/01/2025 6:06 PM [facility] MCV 89.9 79.4 - 94.8 fL 04/01/2025 6:06 PM [facility] MCH 30.1 25.6 - 32.2 pg 04/01/2025 6:06 PM [facility] MCHC 33.5 32.2 - 35.5 g/dL 04/01/2025 6:06 PM [facility] RDW 12.5 11.0 - 14.5 % 04/01/2025 6:06 PM [facility] RDW-STDEV 41.3 36.9 - 56.9 fL 04/01/2025 6:06 PM [facility] PLATELETS 293 163 - 337 K/uL 04/01/2025 6:06 PM [facility] MPV 8.7(L) 10.0 - 14.8 fL 04/01/2025 6:06 PM [facility] NEUTROPHILS 61 34 - 71 % 04/01/2025 6:06 PM [facility] LYMPHOCYTES 22 19 - 52 % 04/01/2025 6:06 PM [facility] MONOCYTES 12 5 - 13 % 04/01/2025 6:06 PM [facility] EOSINOPHILS 4 1 - 6 % 04/01/2025 6:06 PM [facility] BASOPHILS 1 0 - 1 % 04/01/2025 6:06 PM [facility] IMMATURE GRANULOCYTES 1 % 04/01/2025 6:06 PM [facility] NEUTROPHIL ABSOLUTE 6.24(H) 1.56 - 6.13 K/uL 04/01/2025 6:06 PM [facility] LYMPHOCYTE ABSOLUTE 2.25 1.20 - 3.40 K/uL 04/01/2025 6:06 PM [facility] MONOCYTE ABSOLUTE 1.21(H) 0.24 - 0.36 K/uL 04/01/2025 6:06 PM [facility] EOSINOPHIL ABSOLUTE 0.36 0.04 - 0.36 K/uL 04/01/2025 6:06 PM CDT [facility] BASOPHILS ABSOLUTE 0.06 0.01 - 0.08 K/uL 04/01/2025 6:06 PM CDT [facility] IMMATURE GRANULOCYTES ABSOLUTE 0.06 K/uL 04/01/2025 6:06 PM CDT [facility] Blood Venipuncture / Unknown 04/01/2025 5:49 PM CDT 04/01/2025 6:01 PM CDT us Mackenzie Cedillo MD HEMATOLOGY ORDERABLES Final Res ult Performing Organization Address [facility] Co de Phone Number [facility] [id number] [address] [place] [address] * PTT (04/01/2025 5:49 PM CDT) PTT 27.6 25.1 - 35.4 seconds 04/01/2025 6:21 PM CDT [facility] Blood Venipuncture / Unknown 04/01/2025 5:49 PM CDT 04/01/2025 6:01 PM CDT us Mackenzie Cedillo MD HEMATOLOGY ORDERABLES Final Res ult Performing Organization Address [facility] Co de Phone Number [facility] CLIA # [id number] [address] [place] [phone] * SEDIMENTATION RATE (04/01/2025 5:49 PM CDT) ESR (SEDIMENTATION RATE) 25 0 - 30 mm/Hr 04/01/2025 6:21 PM CDT [facility] Blood Venipuncture / Unknown 04/01/2025 5:49 PM CDT 04/01/2025 6:01 PM CDT Narrative [facility] - 04/01/2025 6:21 PM CDT Tube Lot: #[id number] Exp Date: 07/05/2026 0125-1 EXP. 04/09/25 SR 0125-2 EXP. 04/09/25 us Mackenzie Cedillo MD HEMATOLOGY ORDERABLES Final Res ult [facility] CLIA # [id number] [address] [place] [address] * PROTIME-INR (04/01/2025 5:49 PM CDT) Pathologist [facility] PROTIME 13.5 12.1 - 14.3 Seconds 04/01/2025 6:21 PM CDT [facility] INR 1.0 0.9 - 1.1 04/01/2025 6:21 PM CDT [facility] Blood Venipuncture / Unknown 04/01/2025 5:49 PM CDT 04/01/2025 6:01 PM CDT us Mackenzie Cedillo MD HEMATOLOGY ORDERABLES Final Res ult Performing Organization Address City/[facility]/ZIP Co de Phone Number [facility] CLIA # [id number] [address] [place] [phone] * (ABNORMAL) C-REACTIVE PROTEIN (04/01/2025 5:49 PM CDT) [facility] CRP 17.1(H) <5.0 mg/L 04/01/2025 6:29 PM CDT [facility] Blood Venipuncture / Unknown 04/01/2025 5:49 PM CDT 04/01/2025 6:01 PM CDT us Mackenzie Cedillo MD CHEMISTRY ORDERABLES Final Resu lt Performing Organization Address City/[facility]/ZIP Co de Phone Number [facility] CLIA # [id number] [address] [place] [phone] * (ABNORMAL) BRAIN NATRIURETIC PEPTIDE, BNP OR PROBNP (04/01/2025 5:49 PM CDT) PROBNP, N TERMINAL 263(H) 0 - 125 pg/mL 04/01/2025 6:29 PM CDT [facility] Comment: INTERPRETIVE COMMENT based on diagnosis: Diagnostic [...] ORDERABLES Final Resu lt Performing Organization Address City/State/[facility] Co de Phone Number [facility] CLIA # [id number] [address] [place] [address] * MAMMO SCREEN BILAT W OR WO CAD (06/18/2011) Anatomical Region Laterality Modality Breast Bilateral Other us Abstract Spg Provider MAMMO ORDERABLES Final Res ult from Last 3 Months or Most Recently Relevant to Health Maintenance Insurance [place]ICA[place] PPO MCR Care Teams Professor Of Religion Relationship Specialty Start Date End Date Los Cuevas MD [address] [phone] PCP - General Family Practice 07/02/16
[2025-06-16 04:17] LABS: Hematocrit 39.1 % (36-47); Hemoglobin 12.90 g/dL (11.27-16.99); Mean Corpuscular HGB Conc 33.0 g/dL (30-55); Mean Corpuscular Hemoglobin 29.1 pg (27-33); Mean Corpuscular Volume 88.3 fl (85-98); Nucleated Red Blood Cells % 0 %; Platelet Count 237 10^3/cmm (157-399); Red Blood Count 4.43 10^6/uL (3.85-5.65); White Blood Count 10.54 10^3/uL (3.29-11.43)
[2025-06-16] MEDS: ondansetron 2 mg/ML SDV 2 mL 4 MG IVP (04:23)
[2025-06-16] MEDS: morphine 4 mg/mL SDV 1 mL IVP (04:24)
[2025-06-16 04:26] LABS: Glucose Urine UA Negative (Normal); Nitrate Urine Negative (Negative); Specific Gravity, Urine 1.011 (1.005-1.030)
[2025-06-16 04:31] LABS: Add Urine Microscopic? YES
[2025-06-16 04:37] LABS: Alanine Aminotransferase 12 U/L (0-33); Albumin Level 3.1 g/dL (3.5-5.2); Alkaline Phosphatase 337 U/L (35-105); Anion Gap 20.5 (5-19); Aspartate Amino Transferase 9 U/L (0-32); Blood Urea Nitrogen 26 mg/dL (6-20); Calcium 8.3 mg/dL (8.5-10.5); Carbon Dioxide 16 mmol/L (22-29); Chloride 104 mmol/L (98-107); Creatinine Clr Calc Pharmacy 49.8374; Globulin 3.4 g/dL (1.3-4.6); Glucose 180 mg/dL (65-115); Lipase 84 U/L (13-60); Osmolality Calculated 293 mOsm/kg (285-295); Potassium 3.5 mmol/L (3.5-5.1); Sodium 137 mmol/L (136-145); Total Protein 6.5 g/dL (6.6-8.7)
[2025-06-16 04:38] LABS: Lactic Sepsis W/Reflex 2.5 mmol/L (0.5-2.2)
--- NOTE | 2025-06-16 04:41 | CTR_ITS ---
PROCEDURE INFORMATION: Exam: CT Abdomen And Pelvis With Contrast Exam date and time: 06/16/2025 5:02 AM Age: 59 years old Clinical indication: Nausea and vomiting; Prior surgery; Surgery date: 6+ months; Surgery type: Nephrectomy, appendectomy, cholecystectomy; Additional info: Abd pain TECHNIQUE: Imaging protocol: Computed tomography of the abdomen and pelvis with contrast. Radiation optimization: All CT scans at this facility use at least one of these dose optimization techniques: automated exposure control; mA and/or kV adjustment per patient size (includes targeted exams where dose is matched to clinical indication); or iterative reconstruction. Contrast material: OMNI 350; Contrast volume: 100 ml; Contrast route: INTRAVENOUS (IV); COMPARISON: CT chest abdpel w/*[id number] 04/12/2025 5:42 PM RADIATION DOSE METRICS: Total DLP (mGy-cm): 481.66 FINDINGS: Liver: Normal. No mass. Gallbladder and biliary ducts: Normal. No calcified stones. No ductal dilation. Pancreas: Normal. No ductal dilation. Spleen: Normal. No splenomegaly. Adrenal glands: Normal. No mass. Kidneys and ureters: Left nephrectomy. Slightly increasing moderately severe ureteropelvic caliectasis on the right side. There is mild thickening and slight enhancement of the wall of most of the ureter with an area of narrowing in the distal junctional 4th of the right ureter. At least 3 small right renal masses are present. These have improved. The largest previously measured 3.8 cm, currently 2.2 cm with central lucency indicating necrosis. Stomach and bowel: Unremarkable. No obstruction. No mucosal thickening. Appendix: No evidence of appendicitis. Intraperitoneal space: Unremarkable. No free air. No significant fluid collection. Vasculature: Unremarkable. No abdominal aortic aneurysm. Lymph nodes: Unremarkable. No enlarged lymph nodes. Urinary bladder: Marked thickening of the wall of the urinary bladder. Reproductive: Unremarkable as visualized. Bones/joints: Severe lytic destruction of the L5 and the sacrum. Soft tissues: Expanded with a hazy appearance to the muscle and fat of the low pelvis with small masses embedded within the soft tissues. CT/CT abdomen pelvis w con* [id number] IMPRESSION: 1. Slightly increasing obstructive changes in the solitary right kidney. Thickening of the urothelium of the ureter with focal narrowing. 2. Improved right renal masses. 3. Stable bony destruction of the lower lumbosacral spine with extensive soft tissue involvement.
[2025-06-16] MEDS: cefTRIAXone 1,000 mg SDV 1000 MG IVP (04:52)
[2025-06-16] MEDS: iohexol 350 mg/mL 500 mL Btl (per mL) IV (05:07)
[2025-06-16 06:03] LABS: Reflex Lactate Order REFLEX LACTIC ORDERD
[2025-06-16 07:21] LABS: Lactic Acid level (Lactate) 0.9 mmol/L (0.5-2.2)
--- NOTE | 2025-06-16 07:55 | PC.PHAR ---
Addendum entered by Miriam Camacho 06/16/25 07:56: [facility] was sent to [facility] Original Note: Pt would like to use [facility] [place], as she is staying with family.
--- NOTE | 2025-06-16 09:14 | PC.NURSE ---
pt report called to [place] in transfer center @[phone]. Report number: . Pt room: [facility]. Accepting physician: Dr. Tate.
--- NOTE | 2025-06-16 11:13 | PC.NURSE ---
provided pt with warm blanket, update on transfer status. pt denies any further needs at this time.
[2025-06-16] MEDS: HYDROmorphone 0.5 MG/0.5 ML INJ 1 MG IVP (12:49)
--- NOTE | 2025-06-16 12:52 | PC.NURSE ---
attempted to call daughter to update on transfer, no answer @[phone]
== END 2025-06-16 12:53 | disposition short-term general hospital (02) ==
PROVIDERS: Emergency Medicine; Emergency Provider Family Medicine; PCP Family Medicine
DX: C64.1 Malignant neoplasm of right kidney, except renal pelvis (principal); Q62.10 Congenital occlusion of ureter, unspecified; N30.00 Acute cystitis without hematuria; Z85.820 Personal history of malignant melanoma of skin
CPT/HCPCS: 36415; 71045; 74177; 80053; 81001; 83605; 83690; 85025; 87040; 96361; 96374; 96375; 99285; J0696; J1171; J2270; J2405; J7030

== ENCOUNTER 2025-06-23 08:40 | Oncology outpatient (recurring) (ONCR) | payer MEDICARE, MEDICAID, SELFPAY ==
--- NOTE | 2025-06-23 09:21 | ONCRAD EPV_ITS ---
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 ID: [id number], Energy: 15X/6X, Dose/Fx (cGy): 500, #Fx: 5 / 5, Dose Correction (cGy): 0, Total Dose Delivered (cGy): 2,500, Start Date: 05/18/2025, End Date: 05/24/2025, Elapsed Days: 6 Current History: This is a 59-year-old female who is now 1 month s/p treatment to the sacrum. Since her treatment she has been hospitalized in [place] and had imaging such as bone scan. We will review those findings. Today she has diarrhea. She has been more active so she is at increased numbness in her feet but no MOTOR weakness. She states they may be wanting to put a ureteral stent and her kidney in [place]. Current Medications: tramadol 50 mg tablet, prednisone 20 mg tablet, acetaminophen 500 mg tablet cabozantinib 20 mg mg PO DAILY (Cabometyx) clobetasol 0.05 % topical cream olanzapine 5 mg tablet5 mg PO QPM09/08/30 ondansetron HCl 8 mg tablet8 mg PO Q6H PRN Nausea And Vomiting oxycodone 5 mg tablet5 mg PO .Q4-6H PRN Pain pantoprazole 40 mg tablet,cnhiopl00 mg PO DAILY prochlorperazine maleate 10 mg10 mg PO Q8H PRN sennosides 8.6 mg-docusate sodium2 tab PO BID PRN Constipation Allergies: bee venom protein (honey bee) hepatitis B virus vaccine magnesium sulfate Epsom Salt Current Complaints / Review of Systems: . As above Vital Signs: Performed on 06/23/2025 8:45 AM BMI - 25.527 kg/m2 (high), Height - 65 in, Weight - 153.4 lbs, Temperature - 97 f, Pulse - 112 /min (high), Respiration - 17 /min, O2 Sat - 96 %, Pain - 6, Fatigue - 0 and BP - 103/ 70 mm(hg). Physical Exam: General: Alert and oriented x 3. No acute distress. HEENT: Normocephalic, atraumatic. Extraocular Movements Intact: Pupils Equal, Round, Reactive to Light and Accommodation: Sclerae anicteric. Oral cavity is clear without lesions, masses or ulcers. NECK: Supple without supraclavicular or jugular lymphadenopathy. LUNGS: Clear to auscultation bilaterally without rales, rhonchi or wheeze. HEART: Regular rate and rhythm, normal S1 and S2 without murmur, gallop or rub. MUSCULOSKELETAL: No tenderness or percussion pain over the axial skeleton, scapulae or pelvis. ABDOMEN: Soft, nontender, nondistended without masses or organomegaly. Bowell sounds are present. EXTREMITIES: No peripheral edema is identified. Limited motor and sensory examination are grossly intact and symmetric bilaterally. Minimal swelling. She is utilizing rollator. NEUROLOGIC: Cranial nerves II ???XII are grossly intact. Normal sensation, strength 5/5 in all extremities, normal gait, no ataxia. Performance Status: KPS 80 Lab: None pending. 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 Imaging: See HPI Impression: Renal cell carcinoma PLAN: Awaiting decision on possible ureteral stent RTC in 1 month after reviewing imaging reports from [place] next Consider further targeted XRT. Signed by: 06/23/2025 9:20:03 AM <<Signature on File>> Time spent with patient: 25 minutes Global Fee CPT Code: CPT Code:
== END 2025-07-05 23:59 | disposition home or self-care (01) ==
PROVIDERS: PCP Family Medicine; Visit Provider Radiology Radiation Oncology
DX: C64.2 Malignant neoplasm of left kidney, except renal pelvis (principal); C77.5 Secondary and unspecified malignant neoplasm of intrapelvic lymph nodes; C79.51 Secondary malignant neoplasm of bone
CPT/HCPCS: 99024

== ENCOUNTER 2025-07-25 09:35 | Oncology outpatient (recurring) (ONCR) | payer MEDICARE, MEDICAID, SELFPAY ==
--- NOTE | 2025-07-25 12:11 | ONCRAD EPV_ITS ---
Radiation Oncology Established Patient Visit Patient: Caroline Whitney [id number] : 1965 Age: 59 Sex: Female Dictated by: Dr. 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 ID: [id number], Energy: 15X/6X, Dose/Fx (cGy): 500, #Fx: 5 / 5, Dose Correction (cGy): 0, Total Dose Delivered (cGy): 2,500, Start Date: 05/18/2025, End Date: 05/24/2025, Elapsed Days: 6 Current History: This is a pleasant 89-year-old female seen for follow-up after XRT for metastatic RCC. She notes a decrease in pain to around 4 on a 10 point scale. She was recently hospitalized at [facility] in [facility]. She has a solitary right kidney after undergoing left nephrectomy some years ago. There was question if her creatinine continue to rise about stenting for obstruction. However with hydration creatinine has remained between 1.2 and 1.15. She was recently seen at [place], [place] at and labs obtained there. We tried to contact them but have not been able to have them answered to this point. We will look to get a recent creatinine. Current Medications: tramadol 50 mg tablet, prednisone 20 mg tablet, acetaminophen 500 mg tablet cabozantinib 20 mg [id number] mg PO DAILY (Cabometyx) clobetasol 0.05 % topical cream olanzapine 5 mg tablet5 mg PO QPM06/16/25 ondansetron HCl 8 mg tablet8 mg PO Q6H PRN Nausea And Vomiting oxycodone 5 mg tablet5 mg PO .Q4-6H PRN Pain pantoprazole 40 mg tablet,[id number] mg PO DAILY prochlorperazine maleate 10 mg10 mg PO Q8H PRN sennosides 8.6 mg-docusate sodium2 tab PO BID PRN Constipation Gabapentin Flexeril Allergies: bee venom protein (honey bee) hepatitis B virus vaccine magnesium sulfate Epsom Salt Current Complaints / Review of Systems: As above Vital Signs: Performed on 07/25/2025 9:55 AM BMI - 25.727 kg/m2 (high), Height - 65 in, Weight - 154.6 lbs, Temperature - 97.4 f, Pulse - 96 /min, Respiration - 17 /min, O2 Sat - 96 %, Pain - 4, Fatigue - 0 and BP - 175/ 104 mm(hg)(high). Physical Exam: General: Alert and oriented x 3. No acute distress. HEENT: Normocephalic, atraumatic. Extraocular Movements Intact: Pupils Equal, Round, Reactive to Light and Accommodation: Sclerae anicteric. Oral cavity is clear without lesions, masses or ulcers. NECK: Supple without supraclavicular or jugular lymphadenopathy. LUNGS: Clear to auscultation bilaterally without rales, rhonchi or wheeze. HEART: Regular rate and rhythm, normal S1 and S2 without murmur, gallop or rub. MUSCULOSKELETAL: No tenderness or percussion pain over the axial skeleton, scapulae or pelvis. ABDOMEN: Soft, nontender, nondistended without masses or organomegaly. Bowell sounds are present. EXTREMITIES: No peripheral edema is identified. Limited motor and sensory examination are grossly intact and symmetric bilaterally. NEUROLOGIC: Cranial nerves II ???XII are grossly intact. Normal sensation, strength 5/5 in all extremities, normal gait, no ataxia. 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 Imaging: See HPI Impression: RCC with bone mets Left nephrectomy in the past Rising creatinine PLAN: Consideration of stent placement if creatinine continues to rise Obtain lab results from recent blood work at [facility]. RTC in 3 months or sooner if need be. Signed by: 07/25/2025 12:09:36 PM <<Signature on File>> Time spent with patient: Global fee at this time CPT Code: CPT Code:
== END 2025-08-05 23:59 | disposition home or self-care (01) ==
LOC: ONCMED 09:35
PROVIDERS: PCP Family Medicine; Visit Provider Radiology Radiation Oncology
DX: C64.2 Malignant neoplasm of left kidney, except renal pelvis (principal); C77.5 Secondary and unspecified malignant neoplasm of intrapelvic lymph nodes; C79.51 Secondary malignant neoplasm of bone; Z90.5 Acquired absence of kidney; Z92.3 Personal history of irradiation
CPT/HCPCS: 99024

== ENCOUNTER 2025-08-23 16:41 | Outpatient (CLI) | payer MEDICARE, MEDICAID, SELFPAY ==
[2025-08-23 17:14] LABS: Glucose Urine UA Negative (Normal); Nitrate Urine Negative (Negative); Specific Gravity, Urine 1.009 (1.005-1.030)
[2025-08-23 17:16] LABS: Add Urine Microscopic? YES
== END 2025-08-23 16:42 | disposition home or self-care (01) ==
LOC: LAB 16:44
PROVIDERS: PCP Family Medicine
DX: R82.90 Unspecified abnormal findings in urine (principal)
CPT/HCPCS: 81001; 87086